=== PATIENT | male | born 1970 | race Two or more races ===

== ENCOUNTER 2016-05-28 11:13 | Emergency (ER) | payer BC, OTHER ==
[2016-05-28 12:02] VITALS: BP 147/98; PULSE 81; TEMP 98; BMI 32.5
[2016-05-28] MEDS ORDERED: OXYCODONE/APAP 5/325MG COMBO TABLET PO ONE (13:38)
[2016-05-28] MEDS ORDERED: OXYCODONE/APAP 5/325MG COMBO TABLET ONE (13:38)
--- NOTE | 2016-05-28 13:40 | PDOC ---
History of Present Illness - General Chief Complaint: Pain, Acute Stated Complaint: LT HAND INJURY Time Seen by Provider: 05/28/16 13:24 History Source: Patient Exam Limitations: No Limitations - History of Present Illness Initial Comments: 05/28/16 13:56 45 yr male with injury to left index finger. Pt states was at work and a pressure gauge crushed his right index finger. skin intact. no allergies or medical history . 05/28/16 13:57 Occurred: reports: just prior to arrival Upper Extremity Pain Location: left: 2nd finger Past History - Past Medical History Allergies/Adverse Reactions: Allergies Allergy/AdvReac Type Severity Reaction Status Date / Time No Known Allergies Allergy Verified 05/28/16 11:58 Home Medications: Ambulatory Orders Rabeprazole Sodium [Aciphex] 20 mg PO DAILY #30 tab 06/24/15 Sucralfate [Carafate] 1 gm PO Q6H PRN #60 ml 06/24/15 Ibuprofen 800 mg PO TID PRN #20 tablet 05/28/16 Oxycodone HCl/Acetaminophen [Percocet 5-325 mg Tablet] 1 tab PO Q6H PRN #12 tablet MDD 4 tabs 05/28/16 GI Disorders: Yes (PEPTIC ULCER) Psychiatric Problems: Yes (ANXIETY.) - Psycho/Social/Smoking Cessation Hx Anxiety: Yes Suicidal Ideation: No Smoking History: Never smoked Have you smoked in the past 12 months: No Number of Cigarettes Smoked Daily: 1 If you are a former smoker, when did you quit?: 1 YR AGO Information on smoking cessation initiated: No 'Breaking Loose' booklet given: 06/24/15 Hx Alcohol Use: No Drug/Substance Use Hx: No Substance Use Type: None *Physical Exam - Vital Signs Last Vital Signs Temp Pulse Resp BP Pulse Ox 98.0 F 81 16 147/98 99 05/28/16 11:58 05/28/16 11:58 05/28/16 11:58 05/28/16 11:58 05/28/16 11:58 - Physical Exam General Appearance: Yes: Nourished, Appropriately Dressed, Moderate Distress ( pain 10/10 ) HEENT: positive: EOMI, KARIME Extremity: positive: Normal Capillary Refill, Normal Inspection, Tender (distal tip left indec finger, no deformity, skin intact, FROM of the digit sensation intact ) Procedures - Splinting Splint Location: Left: Finger (index to middle finger splinted ) ED Treatment Course - RADIOLOGY Radiology Studies Ordered: Category Date Time Status FINGER(S) LEFT [RAD] Stat Radiology 05/28/16 13:38 Ordered Medical Decision Making - Medical Decision Making 05/28/16 13:59 left index finger trauma at work no obvious deformity, nv intact sensation intact, skin intact will xray to r/o fracture percocet for pain splint/laci tape and follow up with 05/28/16 14:56 *DC/Admit/Observation/Transfer Diagnosis at time of Disposition: Finger fracture, left - Discharge Dispostion Disposition: HOME Condition at time of disposition: Good - Prescriptions Prescriptions: Ibuprofen 800 mg PO TID PRN #20 tablet PRN Reason: Pain Oxycodone HCl/Acetaminophen [Percocet 5-325 mg Tablet] 1 tab PO Q6H PRN #12 tablet MDD 4 tabs PRN Reason: Severe Pain - Referrals Referrals: Ray Tomlinson MD [Staff Physician] - - Patient Instructions Additional Instructions: keep fingers laci taped take motrin 800mg for mild to moderate pain every 6-8hrs take percocet for severe pain follow with the orthopedist call today to make appointment, telll them you were in the ER and your have a broken finger no work until cleared by the orthopedist - Post Discharge Activity Work/School Note: Back to Work
== END 2016-05-28 14:39 | disposition home or self-care (01) ==
LOC: JERFT 11:13
PROC: 2W3KX1Z Immobilization of Left Finger using Splint (ICD-10-PCS; principal; 2016-05-28)
DX: S62.601A Fracture of unspecified phalanx of left index finger, initial encounter for closed fracture (principal); W23.0XXA Caught, crushed, jammed, or pinched between moving objects, initial encounter; Y93.9 Activity, unspecified; Y92.9 Unspecified place or not applicable; Y99.0 Civilian activity done for income or pay
CPT/HCPCS: 73140-TC-LT; 99281-25

== ENCOUNTER 2018-02-02 15:11 | Emergency (ER) | payer BC ==
--- NOTE | 2018-02-02 15:37 | PDOC ---
Rapid Medical Evaluation Chief Complaint: Pain, Acute Time Seen by Provider: 02/02/18 15:29 Medical Evaluation: Allergies Allergy/AdvReac Type Severity Reaction Status Date / Time No Known Allergies Allergy Verified 02/22/17 13:08 02/02/18 15:30 I have performed a brief in-person evaluation of this patient. The patient presents with a chief complaint of: bilateral foot pain x 1 month, worsening/ numbness/ and "nerve pain", states is worse with ingestion of blood sugers./ Strong family history of IDDM Pertinent physical exam findings: pale/ flat feet, with diminished sensation - no lesions or infection. NOTE: patient with extreme anxiety to having fingerstick- diaphoritic and beginning to vagal. As FS was WNL will hold further labs. I have ordered the following: FS= 101. The patient will proceed to the ED for further evaluation. 02/02/18 15:38 02/02/18 15:40 02/02/18 15:41
[2018-02-02 15:48] VITALS: BP 133/72; PULSE 77; TEMP 98.5; BMI 31.1
--- NOTE | 2018-02-02 16:26 | PDOC ---
History of Present Illness - General History Source: Patient Exam Limitations: No Limitations - History of Present Illness Initial Comments: 02/02/18 16:51 The patient is a 47 year old male, with a significant past medical history of Severe bilateral planus plantar, peptic ulcer and anxiety, who presents to the emergency department with, worsening bilateral lower extremity pain. The pain is ongoing for multiple years worsening in the past month. The patient describes his pain as sharp, fire-like pain with occasional numbness worse in the left lower extremity. His pain is worsened when massaging his legs downwards and alleviated when massaging upwards. He used Tylenol, Advil, and Aleve, without relief. He denies any recent trauma or long distance travel. He denies any recent fevers , chills, headache or dizziness. He denies any recent nausea, vomit, diarrhea or constipation. He denies any recent chest pain or shortness of breath. He denies any recent dysuria, frequency, urgency or hematuria. Allergies: NKA Past surgical history: None reported. Social History: Nonsmoker. Denies EtOH use and recreational drug use. <Lee Ann Guerra - Last Filed: 02/02/18 16:54> <Shi Guerrero - Last Filed: 02/03/18 11:55> - General Chief Complaint: Pain, Acute Stated Complaint: POSSIBLE BP PROBLEM Time Seen by Provider: 02/02/18 15:29 Past History <Lee Ann Guerra - Last Filed: 02/02/18 16:54> - Past Medical History COPD: No GI Disorders: Yes (PEPTIC ULCER) Psychiatric Problems: Yes (ANXIETY.) - Immunization History Immunization Up to Date: Yes - Suicide/Smoking/Psychosocial Hx Smoking History: Former smoker Have you smoked in the past 12 months: No Number of Cigarettes Smoked Daily: 1 If you are a former smoker, when did you quit?: 1 YR AGO Information on smoking cessation initiated: No 'Breaking Loose' booklet given: 06/24/15 Hx Alcohol Use: No Drug/Substance Use Hx: No Substance Use Type: None <Shi Guerrero - Last Filed: 02/03/18 11:55> - Past Medical History Allergies/Adverse Reactions: Allergies Allergy/AdvReac Type Severity Reaction Status Date / Time No Known Allergies Allergy Verified 02/02/18 15:30 Home Medications: Ambulatory Orders traMADol HCL [Ultram -] 50 mg PO Q8H #15 tablet MDD 3 02/02/18 Review of Systems - Review of Systems Able to Perform ROS?: Yes Comments:: 02/02/18 16:51 CONSTITUTIONAL: Absent: fever, no chills, no fatigue EYES: Absent: visual changes ENT: Absent: ear pain, no sore throat CARDIOVASCULAR: Absent: chest pain, no palpitations RESPIRATORY: Absent: cough, no SOB GI: Absent: abdominal pain, no nausea, no vomiting, no constipation, no diarrhea GENITOURINARY: Absent: dysuria, no frequency, no hematuria MUSKULOSKELETAL: Present: Bilateral lower extremity pain. Absent: back pain SKIN: Absent: rash NEURO: Absent: headache All Other Systems: Reviewed and Negative <Lee Ann Guerra - Last Filed: 02/02/18 16:54> *Physical Exam - Vital Signs Last Vital Signs Temp Pulse Resp BP Pulse Ox 98.5 F 77 18 133/72 96 02/02/18 15:37 02/02/18 15:37 02/02/18 15:37 02/02/18 15:37 02/02/18 15:37 - Physical Exam Comments: 02/02/18 16:54 GENERAL: Well-appearing, well-nourished. No apparent distress. HEENT: Normocephalic, atraumatic. PERRL, EOM intact. CARDIOVASCULAR: Normal S1, S2. Regular rate and rhythm. PULMONARY: Clear to auscultation bilaterally. ABDOMEN: Soft, non-distended, non-tender. +EXTREMITIES: Diminished sensation to the bilateral feet left worse than right. DP pulses are 2+ and equal. Strength 5/5. No swelling appreciated. No calf tenderness. Normal ROM in all four extremities. No gross deformities. SKIN: Warm, dry. No rash NEUROLOGICAL: No focal neurological deficits. <Lee Ann Guerra - Last Filed: 02/02/18 16:54> - Vital Signs Last Vital Signs Temp Pulse Resp BP Pulse Ox 98.5 F 77 18 133/72 96 02/02/18 15:37 02/02/18 15:37 02/02/18 15:37 02/02/18 15:37 02/02/18 15:37 <Shi Guerrero - Last Filed: 02/03/18 11:55> ED Treatment Course - ADDITIONAL ORDERS Additional order review: Laboratory Results 02/02/18 15:36 POC Glucometer [id number] 02/02/18 15:36 POC Glucometer [id number] - Medications Given in the ED: ED Medications Discontinued Medications Generic Name Dose Route Start Last Admin Trade Name Gatito PRN Reason Stop Dose Admin Tramadol HCl 50 mg 02/02/18 16:31 02/02/18 16:39 Ultram - PO 02/02/18 16:32 50 mg ONCE ONE Administration <[email or web address] - Last Filed: 02/02/18 16:54> - ADDITIONAL ORDERS Additional order review: Laboratory Results 02/02/18 15:36 POC Glucometer [id number] 02/02/18 15:36 POC Glucometer [id number] <Shi Guerrero - Last Filed: 02/03/18 11:55> Medical Decision Making - Medical Decision Making 02/02/18 18:20 A portion of this note was documented by scribe services under my direction. I have reviewed the details of the note, within reason, and agree with the documentation with the following case summary and management plan written by me. The patient is a 47 year old male, with a significant past medical history of Severe bilateral planus plantar, peptic ulcer and anxiety, who presents to the emergency department with, worsening bilateral lower extremity pain/neuropathy -Fhx of IDDM -Pt states pain has gotten worse over the past year. -FS in triage 101. -No gross neurological findings on exam. Pt does report increased pain when touching his feet. -Urine is negative for glucose, protein -Pt refuses lab work d/t needle phobia -Will refer to primary care for further work up: DDX includes but is not limited to, peripheral neuropathy, anemia, cardiac pathology, vascular pathology. -Appointment made at the [facility] for this week -NE home with pain control I discussed the physical exam findings, ancillary test results and final diagnoses with the patient. I answered all of the patient's questions. The patient was satisfied with the care received and felt comfortable with the discharge plan and treatment plan. The Patient agrees to follow up with the primary care physician/specialist within 24-72 hours. Return precautions were given. <Shi Guerrero - Last Filed: 02/03/18 11:55> *DC/Admit/Observation/Transfer - Attestations Scribe Attestion: 02/02/18 16:51 Documentation prepared by Lee Ann Guerra, acting as medical assisting instructor for MARIA DEL CARMEN Ernst. <Lee Ann Guerra - Last Filed: 02/02/18 16:54> - Discharge Dispostion Decision to Admit order: No <Shi Guerrero - Last Filed: 02/03/18 11:55> Diagnosis at time of Disposition: Flat feet, bilateral, Foot pain, bilateral - Discharge Dispostion Disposition: HOME Condition at time of disposition: Stable - Prescriptions Prescriptions: traMADol HCL [Ultram -] 50 mg PO Q8H #15 tablet MDD 3 - Referrals Referrals: Daniel Salazar MD [Primary Care Provider] - - Patient Instructions Printed Discharge Instructions: DI for Peripheral Neuropathy Additional Instructions: You have burning sensations in your feet. Please take the tramadol every 8 hours as needed for pain. Do not drive after taking this medication as it may make you sleepy Your urine today was normal and your blood sugar was 101. Please keep your primary care appointment that was made for you Return to the ED for any new or worsening symptoms - Post Discharge Activity Forms/Work/School Notes: Back to Work
[2018-02-02] MEDS ORDERED: traMADol HCL 50 MG TABLET PO ONE (16:31)
[2018-02-02] MEDS ORDERED: traMADol HCL 50 MG TABLET ONE (16:35)
[2018-02-02 17:24] LABS: URINE APPEARANCE CLEAR; URINE BILIRUBIN NEGATIVE (<2.0 mg/dL); URINE COLOR YELLOW; URINE GLUCOSE (UA) NEGATIVE (NEGATIVE); URINE KETONE NEGATIVE (NEGATIVE); URINE LEUK ESTERASE NEGATIVE (NEGATIVE); URINE NITRITE NEGATIVE (NEGATIVE); URINE PROTEIN NEGATIVE (NEGATIVE); URINE UROBILINOGEN NEGATIVE mg/dL (0.2-1.0)
== END 2018-02-02 18:43 | disposition home or self-care (01) ==
LOC: JERFT 15:11 → JER 15:11 → SUPCPDRO 15:11 → JERFT 18:43
DX: M21.42 Flat foot [pes planus] (acquired), left foot (principal); M21.41 Flat foot [pes planus] (acquired), right foot; F41.9 Anxiety disorder, unspecified; Z87.19 Personal history of other diseases of the digestive system
CPT/HCPCS: 81003; 82962; 99281-25

== ENCOUNTER 2019-12-21 15:35 | Inpatient (IN) | payer BC ==
--- NOTE | 2019-12-21 16:48 | PDOC ---
History of Present Illness - General Stated Complaint: RESPIRATORY Time Seen by Provider: 12/21/19 16:13 - History of Present Illness Initial Comments: 12/21/19 16:24 49 year old man with a history of pre-DM and recent covid exposure who presents with 1 month of dizziness worse with sitting up and walking and worsening and 1 month of worsening shortness of breath. He reports that his ex- with whom he has had contact was positive for covid 2 times. He denies fever, swelling in the legs, prior PE or DVT, denies productive cough. Has no other complaitns. ROS GENERAL/CONSTITUTIONAL: No fever or chills. No weakness. HEAD, EYES, EARS, NOSE AND THROAT: No change in vision. No ear pain or discharge. No sore throat. CARDIOVASCULAR: No chest pain + shortness of breath RESPIRATORY: No cough, wheezing, or hemoptysis. GASTROINTESTINAL: No nausea, vomiting, diarrhea or constipation. GENITOURINARY: No dysuria, frequency, or change in urination. MUSCULOSKELETAL: No joint or muscle swelling or pain. No neck or back pain. SKIN: No rash NEUROLOGIC: No headache, vertigo, loss of consciousness, or change in strength/sensation. ENDOCRINE: No increased thirst. No abnormal weight change HEMATOLOGIC/LYMPHATIC: No anemia, easy bleeding, or history of blood clots. ALLERGIC/IMMUNOLOGIC: No hives or skin allergy. VITALS: sat 95% on 15L NRB, BP111/85, HR 80 PE GENERAL: Awake, alert, and fully oriented, in no acute distress HEAD: No signs of trauma, normocephalic, atraumatic EYES: EOMI, sclera anicteric, conjunctiva clear ENT: oropharynx clear without exudates. Moist mucosa NECK: Normal ROM, supple LUNGS: No distress, speaks full sentences, clear to auscultation bilaterally, accessory abdominal muscle use HEART: Regular rate and rhythm, normal S1 and S2, no murmurs, rubs or gallops, peripheral pulses normal and equal bilaterally. ABDOMEN: Soft, nontender, No guarding, no rebound. No masses EXTREMITIES : Normal inspection, Normal range of motion, no edema. No clubbing or cyanosis. NEUROLOGICAL: Cranial nerves II through XII grossly intact. Normal speech, no focal sensorimotor deficits SKIN: Warm, Dry, normal turgor, no rashes or lesions noted Assessment and Plan 49 year old man with a history of pre-DM and recent covid exposure who presents with 1 month of dizziness worse with sitting up and worsening shortness breath now in respiratory distress. Consider Pna vs covid vs ptx vs pe vs pulm edema - cbc, cmp, bnp, trop, ekg, cxr, covid Patient in current respiratory distress will place on hi-flow NC Labs with respiratory alkalosis with some metabolic compensation ferritin wnl pending esr, crp, dimer Patient admitting to hospitalist Past History - Medical History Allergies/Adverse Reactions: Allergies Allergy/AdvReac Type Severity Reaction Status Date / Time lactose AdvReac Mild Verified 12/22/19 16:08 Home Medications: Ambulatory Orders Amoxicillin/Potassium Clav [Augmentin 875-125 Tablet] 875 each PO BID #15 tablet 12/28/19 Apixaban [Eliquis] 5 mg PO BID 30 Days #60 tablet 12/28/19 Prednisone 10 mg PO DAILY #15 tablet 12/28/19 Quetiapine Fumarate [Seroquel -] 25 mg PO BID #60 tablet 12/28/19 Trazodone HCl 150 mg PO HS #30 tablet 12/28/19 COPD: No GI Disorders: Yes (PEPTIC ULCER) Psychiatric Problems: Yes (ANXIETY.) - Immunization History Immunization Up to Date: Yes - Psycho-Social/Smoking History Smoking History: Former smoker Have you smoked in the past 12 months: No Number of Cigarettes Smoked Daily: 1 If you are a former smoker, when did you quit?: 1 YR AGO 'Breaking Loose' booklet given: 06/24/15 ED Treatment Course - LABORATORY CBC & Chemistry Diagram: 12/28/19 05:21 12/28/19 05:21 - RADIOLOGY Radiology Studies Ordered: Category Date Time Status CXRPORT [CHEST X-RAY PORTABLE*] [RAD] Stat Radiology 12/21/19 16:12 Ordered Discharge - Discharge Information Problems reviewed: Yes Clinical Impression/Diagnosis: Hypoxia, COVID-19 determined by clinical diagnostic criteria Condition: Stable Disposition: HOME - Follow up/Referral - Patient Discharge Instructions - Post Discharge Activity
[2019-12-21 17:09] VITALS: BMI 33.5
--- NOTE | 2019-12-21 17:19 | PDOC ---
Attending Attestation - Resident Resident Name: Xuan Lance - ED Attending Attestation I have performed the following: I have examined & evaluated the patient, The case was reviewed & discussed with the resident, I agree w/resident's findings & plan, Exceptions are as noted - HPI HPI: 12/21/19 17:10 49-year-old gentleman history of borderline dm, Sent in from outpatient MD for evaluation of hypoxia and hypotension. Patient states that he has been feeling subjective fevers, cough, shortness of breath, cough, generalized weakness, nausea, vomiting, diarrhea for the past month, he was tested for COVID at [facility] in early november But he never followed up with the results. Notes that he has been feeling dyspneic on exertion. He does have sick contacts through his ex- girlfriend who was hospitalized for COVID. He has had interactions with her, Although he has been quarantining since he has been symptmoatic. Pt does endorse some chest pain when he is in his coughing fits, but non otherwise. denies any smoking, drugs, recreational drug use. exam: GENERAL: The patient is awake, alert, and fully oriented, Mildly tachypneic. HEAD: Normocephalic, atraumatic. EYES: extraocular movements intact, sclera anicteric, conjunctiva clear. ENT: Normal voice, Moist mucous membranes. NECK: Normal range of motion, supple LUNGS: Breath sounds equal, clear to auscultation bilaterally. No wheezes, no rhonchi, no rales. HEART: Regular rate and rhythm, normal S1 and S2 without murmur, rub or gallop. ABDOMEN: Soft, nontender, No guarding, no rebound. No CVA tenderness EXTREMITIES: Normal range of motion, no edema. No calf tenderness, negative Homans sign NEUROLOGICAL: No facial assymetry, Normal speech, PSYCH: Normal mood, normal affect. SKIN: Warm, Dry, normal turgor, Differential for the patient's symptoms includes possible COVID pneumonia, pneumonia, consider possible pulmonary embolism chest x-ray, sepsis order set was obtained, will test for COVID as pt tachypneic and hypoxic, pt started on high flow 02 to assist with work of breathing pt placed in reverse iso will coninue close monitoring - Physicial Exam PE: 12/22/19 12:22 see above - Critical Care Time Total Critical Care Time: 45 Critical Care Statement: The care of this patient involved high complexity decision making to prevent further life threatening deterioration of the patient's condition and/or to evaluate & treat vital organ system(s) failure or risk of failure. - Medical Decision Making Pt doing wlell on high flow tachypnea improved signed out to evening team awaiting CTA results to eval for possible COVID changes vs PE anticipate admission to ICU Heart Score/ECG Review - ECG Impressions Comment:: 12/21/19 17:51 Twelve-lead EKG was performed and reviewed by me. There is normal sinus rhythm with a normal rate. Rate of 83 The axis is normal. The intervals are normal. There is normal R wave progression There are no ST or T wave abnormalities. Impression: Normal twelve-lead EKG Discharge - Discharge Information Problems reviewed: Yes Clinical Impression/Diagnosis: Hypoxia, COVID-19 determined by clinical diagnostic criteria Condition: Guarded - Admission Yes - Follow up/Referral - Patient Discharge Instructions - Post Discharge Activity
[2019-12-21 17:39] LABS: BASO % 0.2 % (0-2.0); EOS % 0.4 % (0-4.5); HEMATOCRIT 33.1 % (35.4-49); HEMOGLOBIN 10.9 GM/dL (11.7-16.9); LYMPH % 16.3 % (8-40); MCH 32.7 pg (25.7-33.7); MEAN CELL VOLUME 98.9 fl (80-96); MEAN PLT VOLUME 9.1 fl (7.5-11.1); MONO % 12.7 % (3.8-10.2); NEUT % 70.4 % (42.8-82.8); PLATELET COUNT 268 K/MM3 (134-434); RBC 3.35 M/mm3 (4.00-5.60); VENOUS BASE EXCESS 0.9 mmol/L (-2-2); VENOUS O2 SATURATION 65.9 % (70-80); VENOUS PCO2 28.9 mmHg (38-52); VENOUS PH 7.512 (7.310-7.410); WHITE BLOOD COUNT 11.3 K/mm3 (4.0-10.0)
[2019-12-21 17:49] LABS: INR 1.2 (0.83-1.09); PROTHROMBIN TIME (PATIENT) 14.2 SEC (9.7-13.0)
[2019-12-21 17:52] LABS: ACTIVATED PTT 29.8 SECONDS (25.2-36.5)
[2019-12-21 18:09] LABS: ALBUMIN 3.7 g/dl (3.4-5.0); ALK PHOS 63 U/L (45-117); ANION GAP 9 MMOL/L (8-16); BILIRUBIN,TOTAL 1.9 mg/dL (0.2-1); CALCIUM 9.1 mg/dL (8.5-10.1); CHLORIDE 103 mmol/L (98-107); CO2 25 mmol/L (21-32); CREATININE 1.4 mg/dL (0.55-1.3); GLUCOSE,RANDOM 90 mg/dL (74-106); SGOT/AST 21 U/L (15-37); SGPT/ALT 18 U/L (13-61); SODIUM 137 mmol/L (136-145); TOT PROT 7.3 g/dl (6.4-8.2)
[2019-12-21] MEDS ORDERED: ACETAMINOPHEN 1000 MG/100 ML VIAL (NON FORMULARY) IVPB ONE (19:01)
[2019-12-21 19:19] LABS: ERYTHROCYTE SEDIMENTATION RATE 33 mm/hr (0-20)
[2019-12-21] MEDS ORDERED: DEXAMETHASONE SOD PHOSPHATE 20 MG/5 ML VIAL IVPB ONE (19:33)
[2019-12-21] MEDS ORDERED: ACETAMINOPHEN INJECTION 100 ML IVPB ONE (19:41)
[2019-12-21] MEDS ORDERED: CEFTRIAXONE 1,000 MG in DEXTROSE 5%-WATER - 50 ML IVPB ONE (19:55)
[2019-12-21] MEDS ORDERED: AZITHROMYCIN IVPB 500 MG in DEXTROSE 5%-WATER - 250 ML IVPB ONE (19:55)
[2019-12-21] MEDS ORDERED: DEXAMETHASONE SOD PHOSPHATE 10 MG/1 ML VIAL ONE (20:27)
--- NOTE | 2019-12-21 20:27 | PDOC ---
*Physical Exam - Vital Signs Last Vital Signs Temp Pulse Resp BP Pulse Ox 100 F H 91 H 20 106/67 97 12/21/19 16:30 12/21/19 20:04 12/21/19 20:04 12/21/19 20:04 12/21/19 20:04 ED Treatment Course - LABORATORY CBC & Chemistry Diagram: 12/22/19 05:35 12/22/19 05:35 - ADDITIONAL ORDERS Additional order review: Laboratory Results 12/21/19 12/21/19 12/21/19 14:45 14:45 14:45 PT with INR INR PTT (Actin FS) D-Dimer 520 H VBG pH 7.512 H POC VBG pCO2 28.9 L POC VBG pO2 30.4 VBG HCO3 22.6 L VBG O2 Sat (Jaden) 65.9 L VBG Base Excess 0.9 Sodium Potassium Chloride Carbon Dioxide Anion Gap BUN Creatinine Est GFR (CKD-EPI)AfAm Est GFR (CKD-EPI)NonAf Random Glucose Calcium Ferritin Total Bilirubin AST ALT Alkaline Phosphatase Troponin I B-Natriuretic Peptide 14.7 Total Protein Albumin 12/21/19 12/21/19 14:45 14:45 PT with INR 14.20 H INR 1.20 H PTT (Actin FS) 29.8 D-Dimer VBG pH POC VBG pCO2 POC VBG pO2 VBG HCO3 VBG O2 Sat (Jaden) VBG Base Excess Sodium 137 Potassium 4.0 Chloride 103 Carbon Dioxide 25 Anion Gap 9 BUN 11.0 Creatinine 1.4 H Est GFR (CKD-EPI)AfAm 66.95 Est GFR (CKD-EPI)NonAf 57.76 Random Glucose 90 Calcium 9.1 Ferritin 292.5 Total Bilirubin 1.9 H AST 21 ALT 18 Alkaline Phosphatase 63 Troponin I < 0.02 B-Natriuretic Peptide Total Protein 7.3 Albumin 3.7 12/21/19 14:45 RBC 3.35 L MCV 98.9 H MCHC 33.0 RDW 16.0 H MPV 9.1 Neutrophils % 70.4 D Lymphocytes % 16.3 D Monocytes % 12.7 H Eosinophils % 0.4 Basophils % 0.2 - Medications Given in the ED: ED Medications Discontinued Medications Generic Name Dose Route Start Last Admin Trade Name Freq PRN Reason Stop Dose Admin Acetaminophen 1,000 mg 12/21/19 19:01 12/21/19 19:54 Ofirmev Injection - IVPB 12/21/19 19:02 1,000 mg ONCE ONE Administration Medical Decision Making - Medical Decision Making 12/21/19 20:21 Patient was signed out to me. The patient, to my understanding, is a 49 yo M At 7:32, a microblog was sent to the ICU team for admission. Given the patient is having respiratory alkalosis in the setting of hypoxia, tachypnea, and tachycardia with a within normal chest xray, likely the patient had COVID-19 respiratory failure. Because of persistent hypoxia and work of breathing increases while on NRB, the patient was placed on hi-flow nasal cannula. The patient was given 6 mg of dexamethasone, 1 gram of ceftriaxone, 500 mg of azithromycin, and blood cultures drawn. D-dimer was 520. I spoke to ICU team at 7:35 pm. Per ICU, they noted that they will come see the patient. They requested that the patient needs to have a CTA before evaluation. I relayed to the team that medical guidelines are clear that if there is clifton pected PE or DVT in patients with suspected or confirmed COVID-19 that empirical treatment must be initiated and not to delay for CTA of the chest. ICU team evaluated the patient and stated that they are stable enough for telemetry admission and do not require the unit The patient was endorsed to the hospitalist team and accepted for admission Discharge - Discharge Information Problems reviewed: Yes Clinical Impression/Diagnosis: Hypoxia, COVID-19 determined by clinical diagnostic criteria Condition: Guarded - Follow up/Referral - Patient Discharge Instructions - Post Discharge Activity
[2019-12-21] MEDS ORDERED: AZITHROMYCIN IVPB 500 MG/250 ML BAG IVPB ONE (20:28)
[2019-12-21] MEDS ORDERED: CEFTRIAXONE 1 GM/50 ML BAG ONE (20:28)
[2019-12-21] MEDS ORDERED: ENOXAPARIN NA (PORCINE) 60 MG/0.6 ML DISP.SYRIN SQ SCH (20:30)
--- NOTE | 2019-12-21 20:40 | CONSULT ---
Consultation: REQUESTING PROVIDER: ED CONSULT REQUEST: We have been asked to medically evaluate this patient for hypoxia HISTORY OF PRESENT ILLNESS: 49 yo M Pre-Diabetes , bipolar, GERD, peripheral neuropathy chronic diarrhea presents to ED from Dr. Johnson's office for hypoxia and tachycardia. pt states for about 1 week has been feeling increased shortness of breath, especially on exertion. pt states that the shortness of breath is significantly worse when he coughs. sometimes when he coughs it prompts him to vomit. denies sputum production. pt states that he has also been having increased nausea/vomiting/ diarrhea . he states that he has been around his ex-girlfriend who has been sick. he endorses chest "spasms" that are worse when he leans forward. he states that it comes and goes. he also endorses shoulder and neck pain which he attributes to the hospital bed. he states that chronically he sees spots when he stands up and gets dizzy when he stands. this is not new states he quit smoking 5 years ago drinks 2 bottles of wine on weekends denies illicit drug use REVIEW OF SYSTEMS: CONSTITUTIONAL: Present: fevers Absent: chills, diaphoresis, generalized weakness, malaise, loss of appetite, weight change HEENT: Absent: rhinorrhea, nasal congestion, throat pain, throat swelling, difficulty swallowing, mouth swelling, ear pain, eye pain, visual changes CARDIOVASCULAR: Absent: chest pain, syncope, palpitations, irregular heart rate, lightheadedness, peripheral edema RESPIRATORY: Absent: cough, shortness of breath, dyspnea with exertion, orthopnea, wheezing, stridor, hemoptysis GASTROINTESTINAL: Present: nausea, vomiting, diarrhea Absent: abdominal pain, abdominal distension, constipation, melena, hematochezia GENITOURINARY: Absent: dysuria, frequency, urgency, hesitancy, hematuria, flank pain, genital pain MUSCULOSKELETAL: Present: joint pain, back pain Absent: myalgia, arthralgia, joint swelling SKIN: Absent: rash, itching, pallor HEMATOLOGIC/IMMUNOLOGIC: Absent: easy bleeding, easy bruising, lymphadenopathy, frequent infections ENDOCRINE: Absent: unexplained weight gain, unexplained weight loss, heat intolerance, cold intolerance NEUROLOGIC: Absent: headache, focal weakness or paresthesias, dizziness, unsteady gait, seizure, mental status changes, bladder or bowel incontinence PSYCHIATRIC: Absent: anxiety, depression, suicidal or homicidal ideation, hallucinations. PHYSICAL EXAMINATION Vital Signs - 24 hr 12/21/19 12/21/19 12/21/19 16:30 17:22 20:04 Temperature 100 F H Pulse Rate 79 74 Pulse Rate [ 91 H Left] Respiratory 28 H 20 Rate Blood Pressure 108/72 Blood Pressure 106/67 [Left] O2 Sat by Pulse 100 96 97 Oximetry (%) GENERAL: Awake, alert, and fully oriented, in no acute distress. on high flow HEAD: Normal with no signs of trauma. EYES: Pupils equal, round and reactive to light, extraocular movements intact, sclera anicteric EARS, NOSE, THROAT: Ears normal, nares patent, oropharynx clear without exudates. Moist mucous membranes. NECK: Normal range of motion LUNGS: Breath sounds equal,no crackles or wheezes, decreased at bases No accessory muscle use. HEART: Regular rate and rhythm, normal S1 and S2 ABDOMEN: Soft, nontender, not distended, normoactive bowel sounds, no guarding, no rebound, no masses. MUSCULOSKELETAL: Normal range of motion at all joints. No bony deformities or tenderness. UPPER EXTREMITIES: 2+ pulses, warm, well-perfused. No cyanosis. No peripheral edema. LOWER EXTREMITIES: 2+ pulses, warm, well-perfused. No calf tenderness. No peripheral edema. NEUROLOGICAL: Cranial nerves II-XII intact. Normal speech. PSYCHIATRIC: Cooperative. Good eye contact. Appropriate mood and affect. SKIN: Warm, dry, normal turgor, no rashes or lesions noted. Laboratory Last Values WBC 11.3 K/mm3 (4.0-10.0) H 12/21/19 14:45 RBC 3.35 M/mm3 (4.00-5.60) L 12/21/19 14:45 Hgb 10.9 GM/dL (11.7-16.9) L 12/21/19 14:45 Hct 33.1 % (35.4-49) L 12/21/19 14:45 MCV 98.9 fl (80-96) H 12/21/19 14:45 MCH 32.7 pg (25.7-33.7) 12/21/19 14:45 MCHC 33.0 g/dl (32.0-35.9) 12/21/19 14:45 RDW 16.0 % (11.9-15.9) H 12/21/19 14:45 Plt Count 268 K/MM3 (134-434) 12/21/19 14:45 MPV 9.1 fl (7.5-11.1) 12/21/19 14:45 Absolute Neuts (auto) 8.0 K/mm3 (1.5-8.0) 12/21/19 14:45 Neutrophils % 70.4 % (42.8-82.8) D 12/21/19 14:45 Lymphocytes % 16.3 % (8-40) D 12/21/19 14:45 Monocytes % 12.7 % (3.8-10.2) H 12/21/19 14:45 Eosinophils % 0.4 % (0-4.5) 12/21/19 14:45 Basophils % 0.2 % (0-2.0) 12/21/19 14:45 Nucleated RBC % 0 % (0-0) 12/21/19 14:45 ESR 33 mm/hr (0-20) H 12/21/19 14:45 PT with INR 14.20 SEC (9.7-13.0) H 12/21/19 14:45 INR 1.20 (0.83-1.09) H 12/21/19 14:45 PTT (Actin FS) 29.8 SECONDS (25.2-36.5) 12/21/19 14:45 D-Dimer 520 ng/ml (0-500) H 12/21/19 14:45 VBG pH 7.512 (7.310-7.410) H 12/21/19 14:45 POC VBG pCO2 28.9 mmHg (38-52) L 12/21/19 14:45 POC VBG pO2 30.4 mmHg (28-48) 12/21/19 14:45 VBG HCO3 22.6 mmol/L (23-29) L 12/21/19 14:45 VBG O2 Sat (Jaden) 65.9 % (70-80) L 12/21/19 14:45 VBG Base Excess 0.9 mmol/L (-2-2) 12/21/19 14:45 Sodium 137 mmol/L (136-145) 12/21/19 14:45 Potassium 4.0 mmol/L (3.5-5.1) 12/21/19 14:45 Chloride 103 mmol/L (98-107) 12/21/19 14:45 Carbon Dioxide 25 mmol/L (21-32) 12/21/19 14:45 Anion Gap 9 MMOL/L (8-16) 12/21/19 14:45 BUN 11.0 mg/dL (7-18) 12/21/19 14:45 Creatinine 1.4 mg/dL (0.55-1.3) H 12/21/19 14:45 Est GFR (CKD-EPI)AfAm 66.95 12/21/19 14:45 Est GFR (CKD-EPI)NonAf 57.76 12/21/19 14:45 Random Glucose 90 mg/dL (74-106) 12/21/19 14:45 Calcium 9.1 mg/dL (8.5-10.1) 12/21/19 14:45 Ferritin 292.5 ng/ml (8-388) 12/21/19 14:45 Total Bilirubin 1.9 mg/dL (0.2-1) H 12/21/19 14:45 AST 21 U/L (15-37) 12/21/19 14:45 ALT 18 U/L (13-61) 12/21/19 14:45 Alkaline Phosphatase 63 U/L (45-117) 12/21/19 14:45 Troponin I < 0.02 ng/ml (0.00-0.05) 12/21/19 14:45 B-Natriuretic Peptide 14.7 pg/ml (5-125) 12/21/19 14:45 Total Protein 7.3 g/dl (6.4-8.2) 12/21/19 14:45 Albumin 3.7 g/dl (3.4-5.0) 12/21/19 14:45 Active Medications Generic Name Dose Route Start Last Admin Trade Name Freq PRN Reason Stop Dose Admin Enoxaparin Sodium 60 mg 12/21/19 20:30 Lovenox - SQ ONCE PAULETTE Azithromycin 500 mg/ Dextrose 250 mls @ 250 mls/hr 12/21/19 19:55 IVPB 12/21/19 20:54 ONCE ONE ASSESSMENT/PLAN: 49 yo M Pre-Diabetes , bipolar, GERD, peripheral neuropathy chronic diarrhea presents to ED from Dr. Johnson's office for hypoxia and tachycardia. Pt is admitted for acute hypoxic respiratory failure , r/o covid-19. given that pt is saturating well (97%)on hiflow , not using accessory muscles will not accept to ICU at this time. Acute hypoxic respiratory failure likely 2/2 covid 19 vs PE cont HiFlow and cont to monitor sats. maintain >92% titrate as tolerated will recommend further imaging , although covid suspicious cannot r/o PE follow inflammatory markers would recommend checking legionella, BCx, UA would recommend checking Cdif UA, U lytes , UOsm , SOsm Dispo: recommending telemetry. please feel free to re-consult if needed. ATTENDING PHYSICIAN STATEMENT I saw and evaluated the patient. I reviewed the resident's note and discussed the case with the resident. I agree with the resident's findings and plan as documented. SUBJECTIVE: OBJECTIVE: ASSESSMENT AND PLAN:
[2019-12-21] MEDS ORDERED: ENOXAPARIN NA (PORCINE) 40 MG/0.4 ML DISP.SYRIN SQ ONE (21:43)
[2019-12-21] MEDS ORDERED: HYDROXYCHLOROQUINE SO4 200 MG TABLET (FP) PO ONE ×2 (22:46→23:19)
[2019-12-21] MEDS: SODIUM CHLORIDE 1,000 ML IV SCH (23:27)
--- NOTE | 2019-12-22 00:22 | PN ---
Teaching Attending Note Name of Resident: Christiano Lau ATTENDING PHYSICIAN STATEMENT I saw and evaluated the patient. I reviewed the resident's note and discussed the case with the resident. I agree with the resident's findings and plan as documented. SUBJECTIVE: 49 yo M Pre-Diabetes , bipolar, GERD, peripheral neuropathy chronic diarrhea presented to ED from doctor's office for hypoxia and tachycardia. He has been having shortness of breath for 1 week worse with exertion. he also c/o dry cough for last few days. + history of sick contact through his ex-girlfriend who was hospitalized for COVID. He also admits having nausea, vomiting diarrhea. After coming to ED he was hypoxic so plaxec on nasal cannula. OBJECTIVE: Last Vital Signs Temp Pulse Resp BP Pulse Ox 99.3 F 96 H 20 101/63 97 12/21/19 23:50 12/21/19 23:50 12/21/19 23:50 12/21/19 23:50 12/21/19 23:52 GENERAL: The patient is awake, alert, and fully oriented in mild resp distress HEAD: Normocephalic, atraumatic. EYES: extraocular movements intact, sclera anicteric, conjunctiva clear. ENT: Normal voice, Moist mucous membranes. NECK: Normal range of motion, supple LUNGS: tachypmea Breath sounds equal, clear to auscultation bilaterally. No wheezes, no rhonchi, no rales. HEART: Regular rate and rhythm, normal S1 and S2 without murmur, rub or gallop. ABDOMEN: Soft, nontender, No guarding, no rebound. No CVA tenderness EXTREMITIES: Normal range of motion, no edema. No calf tenderness, negative Homans sign NEUROLOGICAL: No facial assymetry, Normal speech, PSYCH: Normal mood, normal affect. SKIN: Warm, Dry, normal turgor, CT chest was done which showed b/l ground glass opacities consistant with COVID 19 pneumonitis ASSESSMENT AND PLAN: Acute hypoxic respiratory failure likely due to b/l COVID pneumonia JANNA Pre-Diabetes , bipolar, GERD, peripheral neuropathy chronic diarrhea Admit to tele ICU consult appreciated patient is on high flow NC wean off to ventimask. NC if tolerated goal of SPo2 >93 IV decadron 6 mg daily ( duration up to 10 days) Give 1 dose of hydroxychloroquine 400 mg if QTc<500. ID eval Tab doxycycline 100 BID covid markers - ESrm,CRP, ferritin, d dimer, LDH, CPK, procal, troponin COVID isolation tylenol for fever Will consider full dose AC if D dimer is significantly eleavted DVT ppx discussed with resident
[2019-12-22 00:34] LABS: LDH 301 U/L (87-246); MAGNESIUM 2.4 mg/dL (1.8-2.4); PHOSPHOROUS 3.9 mg/dL (2.5-4.9)
--- NOTE | 2019-12-22 00:37 | HP ---
CHIEF COMPLAINT: shortness of breath PCP: Dr. Josafat Johnson HISTORY OF PRESENT ILLNESS: Pt is a 49 yo M with PMH of pre-diabetes, bipolar disorder, peripheral neuropathy, chronic diarrhea, and GERD presenting to the ED from Dr. Johnson's office for evaluation of hypoxia and hypotension. Pt reports that he was hy poxic, saturating "in the 80s", and that his BP in the office was 90s/60s. It should be noted that pt has had recent COVID exposure from his ex who was previously COVID + during the last month; tested at [facility] but results were still pending. Pt has felt intermittent SOB for the last month, but felt a worsening of his SOB in the past 1 week. SOB is worse with exertion and aggravated by episodes of coughing (non-productive of sputum). Improved at rest. He endorses associated cough, fevers and chills, chest spasms with coughing episodes but not during periods of dyspnea, and intermittent episodes of nonbloody, nonbilious emesis after some coughing spells. Also reports a sendentary lifestyle as he has been in quarantine in his [employer] apartment before he can go back to work; endorses minimal physical activity with remaining seated or in bed for extended periods of time. Denies pleuritic chest pain, calf pain, abdominal pain, rhinorrhea, changes in vision, or headaches. In addition to his main complaint, pt reports feeling lightheaded on the majority of days during this past month and reports and increase in his chronic diarrhea and 1 day last week with multiple episodes of non bloody non bilious emesis. Denies associated falls or syncope. Pt does not recall any inciting factors for a worsening of these symptoms and reports that they have coincided with his SOB. ER course was notable for: (1)IV tylenol given as pt was febrile in ED (although not documented in EMR vitals) (2)Pt was placed on HFNC and then transition to a venti mask (3)ICU team was consulted; Pt asssessed and decision made to not admit to ICU at this time. (4)Pt given azithro and ceftriaxone in ED; also Lovenox 60 (5)CTA with bilateral groundglass infiltrates concerning for COIVD 19 pneumonitis; no PE seen (6)Pt refusing ABG d/t fear of needles. Recent Travel: none; Sick Contact - Ex GF who has been COVID 19 + PAST MEDICAL HISTORY: as per HPI PAST SURGICAL HISTORY: salivary gland removal (d/t stone in salivary duct); vasectomy; lasik eye surgery FAMILY HISTORY DM in both many members of both maternal and paternal family Social History: Has been recently quarantined in his [employer] apartment; self- reporting a sedentary lifestyle; ordering mostly [employer]. Smoking:quit smoking 5 years ago; reports less than 1 ppd prior to this Alcohol: may drink alcohol on weekends; usually includes "a bottle or two of wine" Drugs: denies Allergies No Known Allergies Allergy (Verified 12/21/19 17:20) HOME MEDICATIONS: Home Medications Medication Instructions Recorded Trazodone HCl 150 mg PO HS #30 tablet 05/12/19 Pregabalin [Lyrica -] 150 mg PO BID 12/21/19 REVIEW OF SYSTEMS As per HPI. PHYSICAL EXAMINATION Vital Signs - 24 hr 12/21/19 12/21/19 12/21/19 16:30 17:22 20:04 Temperature 100 F H Pulse Rate 79 74 Pulse Rate [ 91 H Left] Respiratory 28 H 20 Rate Blood Pressure 108/72 Blood Pressure 106/67 [Left] O2 Sat by Pulse 100 96 97 Oximetry (%) 12/21/19 12/21/19 12/21/19 20:20 21:28 22:25 Temperature 99.7 F H Pulse Rate Pulse Rate [ Left] Respiratory Rate Blood Pressure Blood Pressure [Left] O2 Sat by Pulse 97 97 Oximetry (%) 12/21/19 12/21/19 23:50 23:52 Temperature 99.3 F Pulse Rate Pulse Rate [ 96 H Left] Respiratory 20 Rate Blood Pressure Blood Pressure 101/63 [Left] O2 Sat by Pulse 97 97 Oximetry (%) GENERAL: Awake, alert, and fully oriented, in no acute distress. Anxious appearing. HEAD: NCAT EYES: PERRLA, EOMI, sclera white, conjunctiva clear. EARS, NOSE, THROAT:Oropharynx clear without exudates. Moist mucous membranes. NECK: Normal range of motion, supple, trachea midline LUNGS: Breath sounds equal, decreased breath sounds at bases. No wheezes, and no crackles. No accessory muscle use. HEART: Regular rate and rhythm, normal S1 and S2 without murmur, rub or gallop. ABDOMEN: Soft, nontender, not distended, normoactive bowel sounds MUSCULOSKELETAL: moving all extremities spontaneously and equally UPPER EXTREMITIES: 2+ pulses, warm, well-perfused. No peripheral edema. LOWER EXTREMITIES: 2+ pulses, warm, well-perfused. No calf tenderness. No peripheral edema. NEUROLOGICAL: Cranial nerves II-XII grossly intact. Normal speech. Normal gait. Sensation decreased to light touch on sole of R foot. PSYCHIATRIC: Cooperative. Anxious appearing. SKIN: Warm, dry, no rashes or lesions noted. Laboratory Results - last 24 hr 12/21/19 12/21/19 12/21/19 14:45 14:45 14:45 WBC 11.3 H RBC 3.35 L Hgb 10.9 L Hct 33.1 L MCV 98.9 H MCH 32.7 MCHC 33.0 RDW 16.0 H Plt Count 268 MPV 9.1 Absolute Neuts (auto) 8.0 Neutrophils % 70.4 D Lymphocytes % 16.3 D Monocytes % 12.7 H Eosinophils % 0.4 Basophils % 0.2 Nucleated RBC % 0 ESR 33 H PT with INR 14.20 H INR 1.20 H PTT (Actin FS) 29.8 D-Dimer VBG pH POC VBG pCO2 POC VBG pO2 VBG HCO3 VBG O2 Sat (Jaden) VBG Base Excess Sodium 137 Potassium 4.0 Chloride 103 Carbon Dioxide 25 Anion Gap 9 BUN 11.0 Creatinine 1.4 H Est GFR (CKD-EPI)AfAm 66.95 Est GFR (CKD-EPI)NonAf 57.76 Random Glucose 90 Calcium 9.1 Phosphorus Magnesium Ferritin 292.5 Total Bilirubin 1.9 H AST 21 ALT 18 Alkaline Phosphatase 63 LD Total Creatine Kinase Troponin I < 0.02 B-Natriuretic Peptide Total Protein 7.3 Albumin 3.7 12/21/19 12/21/19 12/21/19 14:45 14:45 14:45 WBC RBC Hgb Hct MCV MCH MCHC RDW Plt Count MPV Absolute Neuts (auto) Neutrophils % Lymphocytes % Monocytes % Eosinophils % Basophils % Nucleated RBC % ESR PT with INR INR PTT (Actin FS) D-Dimer 520 H VBG pH 7.512 H POC VBG pCO2 28.9 L POC VBG pO2 30.4 VBG HCO3 22.6 L VBG O2 Sat (Jaden) 65.9 L VBG Base Excess 0.9 Sodium Potassium Chloride Carbon Dioxide Anion Gap BUN Creatinine Est GFR (CKD-EPI)AfAm Est GFR (CKD-EPI)NonAf Random Glucose Calcium Phosphorus Magnesium Ferritin Total Bilirubin AST ALT Alkaline Phosphatase LD Total Creatine Kinase Troponin I B-Natriuretic Peptide 14.7 Total Protein Albumin 12/21/19 23:40 WBC RBC Hgb Hct MCV MCH MCHC RDW Plt Count MPV Absolute Neuts (auto) Neutrophils % Lymphocytes % Monocytes % Eosinophils % Basophils % Nucleated RBC % ESR PT with INR INR PTT (Actin FS) D-Dimer VBG pH POC VBG pCO2 POC VBG pO2 VBG HCO3 VBG O2 Sat (Jaden) VBG Base Excess Sodium Potassium Chloride Carbon Dioxide Anion Gap BUN Creatinine Est GFR (CKD-EPI)AfAm Est GFR (CKD-EPI)NonAf Random Glucose Calcium Phosphorus 3.9 Magnesium 2.4 Ferritin 294.1 Total Bilirubin AST ALT Alkaline Phosphatase LD Total 301 H Creatine Kinase 259 Troponin I < 0.02 B-Natriuretic Peptide Total Protein Albumin ASSESSMENT/PLAN: Pt is a 49 yo M with PMH of pre-diabetes, bipolar disorder, peripheral neuropathy, and chronic diarrhea being admitted for acute hypoxic respiratory failure likely 2/2 to COVID 19 pneumonitis; also with JANNA. #Acute Hypoxic RF 2/2 to COVID19 Pneumonitis less likely bacterial CAP CTA showing bilateral GGOs, negative for PE O2 sat >93% on ventimask right now - f/u COVID19 pcr - pending - SpO2 goal >93% - ID consulted for questionable initiation of remdesivir - Vitamin C/D; Zinc - 1 dose of 400 mg plaquenil - as per day team if you want to continue; check QTc - doxy 100 bid for anti-inflammtory properties - 6 mg IV push decadron daily x 10 days, as per COVID 19 NIH guidelines - protonix PO 40 daily for GI ppx while on steroids - trend inflammatory markers (ESR, CRP, LDH, ferritin) - troponins, CK ordered to eval for myocarditis, as it has been seen with COVID - pt refused ABG at this time d/t fear of needles; attempt ABG again later - will f/u D-dimer; if > 2000, will give additional lovenox dose, as per day team (already received 60 mg lovenox in ED) - UA, legionella, strep, blood cx ordered - pulm consult as per primary team's discretion - can consider convalescent plasma if inflammatory markers continue to rise - CXR in the AM; consider daily to monitor extent of pneumonitis - tylenol PRN for fever #JANNA Likely 2/2 to COVID 19 Cr 1.4 - UA, Urine lytes ordered - avoid neprhotoxic agents - NS @ 75 cc/hr - repeat CMP in AM #Anemia (likely Anemia of Chronic Disease given normal MVC; Hb 10.9) - will obtain iron studies - as per outpatient labs, pt anemic is - will repeat CBC in AM and trend daily - transfuse if Hb< 7 - no acute signs of bleeding at this time #Pre-Diabetes Pt likely to be hyperglycemic on steroids - BGM ACHS - ISS - A1C ordered Peripheral Neuropathy - continue home lyrica 150 bid #Bipolar Disorder - continue home trazadone 150 qhs #DVT Ppx - full dose anticoagulation, as per day team once COVID confirmed positive - lovenox 60 given in ED #FEN -F - NS @ 75 cc/hr -E - monitor lytes; replete prn -N - low Na, diabetic diet #Dispo - admit to med-surg Visit type - Emergency Visit Emergency Visit: Yes ED Registration Date: 12/21/19 Care time: The patient presented to the Emergency Department on the above date and was hospitalized for further evaluation of their emergent condition. - New Patient This patient is new to me today: Yes Date on this admission: 12/22/19 - Critical Care Critical Care patient: No ATTENDING PHYSICIAN STATEMENT I saw and evaluated the patient. I reviewed the resident's note and discussed the case with the resident. I agree with the resident's findings and plan as documented. SUBJECTIVE: OBJECTIVE: ASSESSMENT AND PLAN:
[2019-12-22 01:01] LABS: URINE APPEARANCE CLEAR; URINE BILIRUBIN NEGATIVE (NEGATIVE); URINE COLOR DK YELLOW; URINE GLUCOSE (UA) NEGATIVE (NEGATIVE); URINE KETONE NEGATIVE (NEGATIVE)
[2019-12-22 01:02] LABS: EPI CELLS 6 /uL (0-25.1); HYALINE CASTS 1 /uL (0-3.1); PH,URINE 8.5 (5.0-8.0); URINE LEUK ESTERASE NEGATIVE (NEGATIVE); URINE NITRITE NEGATIVE (NEGATIVE); URINE PROTEIN TRACE (NEGATIVE); URINE RBC 9 /uL (0-23.9); URINE WBC 3 /uL (0-25.8)
[2019-12-22 01:03] LABS: URINE BACTERIA 11 /uL (0-1359)
[2019-12-22] MEDS ORDERED: ACETAMINOPHEN 325 MG TABLET (FP) ONE (02:07)
[2019-12-22] MEDS: traZODone HCL 50 MG TABLET (FP) PO SCH ×2 (03:02→21:07)
[2019-12-22] MEDS: ACETAMINOPHEN 325 MG TABLET (FP) PO PRN (03:02)
[2019-12-22 06:37] LABS: BASO % 0.1 % (0-2.0); HEMATOCRIT 30.8 % (35.4-49); HEMOGLOBIN 10.1 GM/dL (11.7-16.9); LYMPH % 6.9 % (8-40); MCH 32.7 pg (25.7-33.7); MCHC 32.9 g/dl (32.0-35.9); MEAN CELL VOLUME 99.4 fl (80-96); MONO % 8.5 % (3.8-10.2); NEUT % 84.5 % (42.8-82.8); PLATELET COUNT 254 K/MM3 (134-434); RDW 16.5 % (11.9-15.9); WHITE BLOOD COUNT 8.4 K/mm3 (4.0-10.0)
[2019-12-22 06:51] LABS: IRON SERUM 35 ug/dL (50-175); TOTAL IRON BINDING CAPACITY 305 ug/dL (250-450)
[2019-12-22 06:56] LABS: ALBUMIN 3.4 g/dl (3.4-5.0); BILIRUBIN,TOTAL 1.6 mg/dL (0.2-1); BLOOD UREA NITROGEN 13.1 mg/dL (7-18); CALCIUM 8.4 mg/dL (8.5-10.1); CREATININE 1.2 mg/dL (0.55-1.3); MAGNESIUM 2.5 mg/dL (1.8-2.4); PHOSPHOROUS 4.9 mg/dL (2.5-4.9); POTASSIUM 4.5 mmol/L (3.5-5.1); TOT PROT 7.2 g/dl (6.4-8.2)
[2019-12-22] MEDS: INSULIN SLIDING SCALE (NOVOLOG) 1 VIAL SQ SCH ×4 (07:27→21:14)
--- NOTE | 2019-12-22 09:19 | EKG ---
Test Reason : Blood Pressure : / mmHG Vent. Rate : 083 BPM Atrial Rate : 083 BPM P-R Int : 128 ms QRS Dur : 068 ms QT Int : 368 ms P-R-T Axes : 030 024 003 degrees QTc Int : 432 ms NORMAL SINUS RHYTHM NORMAL ECG WHEN COMPARED WITH ECG OF 24-JUN-2015 14:37, NO SIGNIFICANT CHANGE WAS FOUND Confirmed by MD COLE, JASON ([id number]) on 12/22/2019 9:19:38 AM Referred By: Confirmed By:JASON GALVAN MD
--- NOTE | 2019-12-22 09:25 | CON.ID ---
Consult Consult Specialty:: infectious diseases Referred by:: hospitalist Reason for Consultation:: sob,covid - History of Present Illness Chief Complaint: sob,exertional dyspnoea History of Present Illness: 49 yo M with PMH of pre-diabetes, bipolar disorder, peripheral neuropathy, chronic diarrhea, and GERD presenting to the ED from Dr. Johnson's office for evaluation of hypoxia and hypotension. Pt reports that he was hypoxic, s aturating "in the 80s", and that his BP in the office was 90s/60s. It should be noted that pt has had recent COVID exposure from his ex who was previously COVID + during the last month; tested at [facility] but results were still pending. Pt has felt intermittent SOB for the last month, but felt a worsening of his SOB in the past 1 week. SOB is worse with exertion and aggravated by episodes of coughing (non-productive of sputum). mentions that this has going on for one month. patient currently very unhappy about the room he is in mentions that he felt that his brain did not get oxygen to his brain and then he was placed on face mask and was send here currently he feels better on face mask - History Source History Provided By: Patient Limitations to Obtaining History: No Limitations - Alcohol/Substance Use Hx Alcohol Use: No - Smoking History Smoking history: Former smoker Have you smoked in the past 12 months: No Aproximately how many cigarettes per day: 1 If you are a former smoker, when did you quit?: 1 YR AGO Home Medications - Allergies Allergies/Adverse Reactions: Allergies Allergy/AdvReac Type Severity Reaction Status Date / Time No Known Allergies Allergy Verified 12/21/19 17:20 - Home Medications Home Medications: Ambulatory Orders Trazodone HCl 150 mg PO HS #30 tablet 05/12/19 Pregabalin [Lyrica -] 150 mg PO BID 12/21/19 Review of Systems - Review of Systems Constitutional: reports: Weakness, Other Eyes: reports: No Symptoms HENT: reports: No Symptoms Neck: reports: No Symptoms Cardiovascular: reports: No Symptoms Respiratory: reports: SOB, SOB on Exertion, Other Gastrointestinal: reports: No Symptoms Genitourinary: reports: No Symptoms Musculoskeletal: reports: No Symptoms Integumentary: reports: No Symptoms Neurological: reports: No Symptoms Endocrine: reports: No Symptoms Hematology/Lymphatic: reports: No Symptoms Psychiatric: reports: No Symptoms Physical Exam Vital Signs: Vital Signs Temperature 98.3 F 12/22/19 04:40 Pulse Rate 83 12/22/19 08:25 Respiratory Rate 20 12/22/19 04:40 Blood Pressure 128/64 12/22/19 04:40 O2 Sat by Pulse Oximetry (%) 94 L 12/22/19 08:25 Constitutional: Yes: Calm, Mild Distress Eyes: Yes: Conjunctiva Clear, EOM Intact HENT: Yes: Atraumatic, Normocephalic Neck: Yes: Supple, Trachea Midline Cardiovascular: Yes: Regular Rate and Rhythm Respiratory: Yes: Regular, On Venti-Mask, Poor Air Entry, Other Gastrointestinal: Yes: Normal Bowel Sounds, Soft Musculoskeletal: Yes: WNL Extremities: Yes: WNL Neurological: Yes: Alert, Oriented Psychiatric: Yes: Alert, Oriented Labs: CBC, BMP 12/22/19 05:35 12/22/19 05:35 Imaging - Results Chest X-ray: Report Reviewed, Image Reviewed X-ray: Report Reviewed, Image Reviewed Cat Scan: Report Reviewed, Image Reviewed Assessment/Plan 49 yo M with PMH of pre-diabetes, bipolar disorder, peripheral neuropathy, and chronic diarrhea being admitted for acute hypoxic respiratory failure likely 2/2 to COVID 19 pneumonitis; also with JANNA. #Acute Hypoxic RF 2/2 to COVID19 Pneumonitis #JANNA #Anemia (likely Anemia of Chronic Disease given normal MVC; Hb 10.9) #Pre-Diabetes Peripheral Neuropathy #Bipolar Disorder i thnk patient has probably covid,only thing is how long has he had it we will wait for the results,monitor his oxygen saturation we can give him a trial of remdesivir and see if it helps alsong with plasme if it does not then we will decide further mgmt await for all results resp support close monitoring patient can detoriate any time
[2019-12-22 09:55] LABS: BILIRUBIN,DIRECT 0.3 mg/dL (0.0-0.2)
[2019-12-22] MEDS ORDERED: CHOLECALCIFEROL (VIT D3) 400 UNIT (10 MCG) TABLET PO SCH (10:00)
[2019-12-22] MEDS: DEXAMETHASONE SOD PHOSPHATE 10 MG/1 ML VIAL IVPUSH SCH (10:00)
[2019-12-22] MEDS ORDERED: ENOXAPARIN NA (PORCINE) 40 MG/0.4 ML DISP.SYRIN SQ SCH ×3 (10:00→13:30)
[2019-12-22] MEDS: PREGABALIN 75 MG CAPSULE PO SCH ×2 (10:00→21:16)
[2019-12-22] MEDS: ASCORBIC ACID 500 MG TABLET (FP) PO SCH ×2 (10:00→21:14)
[2019-12-22] MEDS ORDERED: ASCORBIC ACID 250 MG TABLET (FP) PO SCH (10:00)
[2019-12-22] MEDS: PANTOPRAZOLE 40 MG TABLET PO SCH (10:00)
[2019-12-22] MEDS: CEFTRIAXONE 1 GM in SODIUM CHLORIDE 50 ML IVPB SCH (10:00)
[2019-12-22] MEDS: ZINC SULFATE 220 MG CAPSULE (FP) PO SCH ×2 (10:15→21:14)
[2019-12-22] MEDS ORDERED: DEXAMETHASONE SOD PHOSPHATE 10 MG/1 ML VIAL ONE (10:22)
[2019-12-22] MEDS ORDERED: PREGABALIN 50 MG CAPSULE ONE ×2 (10:22→10:25)
[2019-12-22] MEDS ORDERED: ZINC SULFATE 220 MG CAPSULE (FP) ONE (10:23)
[2019-12-22] MEDS ORDERED: PANTOPRAZOLE 40 MG TABLET ONE (10:23)
[2019-12-22] MEDS ORDERED: ENOXAPARIN NA (PORCINE) 40 MG/0.4 ML DISP.SYRIN SQ ONE (10:24)
[2019-12-22] MEDS ORDERED: DOXYCYCLINE HYCLATE 100 MG VIAL ONE ×2 (10:24→20:51)
[2019-12-22] MEDS ORDERED: PREGABALIN 100 MG CAPSULE ONE (10:24)
[2019-12-22] MEDS ORDERED: CEFTRIAXONE 1 GM/50 ML BAG ONE (10:24)
[2019-12-22] MEDS: DOXYCYCLINE INJECTION 100 MG in DEXTROSE 5%-WATER 100 ML IVPB SCH ×2 (10:55→21:14)
[2019-12-22] MEDS: CHOLECALCIFEROL (VIT D3) 1,000 UNIT (25 MCG) TABLET PO SCH (11:16)
--- NOTE | 2019-12-22 12:47 | PN ---
Progress Note (short form) - Note Progress Note: PULMONARY CONSULTATION DICTATED 12/22/19 IMP ACUTE HYPOXEMIC RESPIRATORY FAILURE SUSPECTED COVID 19 PNEUMONIA PRE DM BIPOLAR PERIPHERAL NEUROPATHY GERD PLAN SUPPLEMENTAL O2 INHALED BRONCHODILATORS/STEROIDS DECADRON CONVALESCENT PLASMA TRANSFUSION PENDING COVID PCR LOVENOX 40 BID MONITOR LYTES, MONITOR INFLAMMATORY MARKERS F/U CHEST X-RAYS COVID PCR PENDING COVID ANTIBODIES DR OVERTON Problem List - Problems (1) Suspected COVID-19 virus infection Code(s): Z20.828 - CONTACT W AND EXPOSURE TO OTH VIRAL COMMUNICABLE DISEASES (2) Hypoxia Code(s): R09.02 - HYPOXEMIA
[2019-12-22] MEDS: BUDESONIDE/FORMETEROL FUMARATE 160/4.5 mcg INHALER IH SCH ×2 (13:44→21:14)
--- NOTE | 2019-12-22 14:02 | CONS ---
PULMONARY CONSULTATION DATE OF CONSULTATION: 12/22/2019 REFERRING PHYSICIAN: Yelena Carson MD HISTORY OF PRESENT ILLNESS: Patient is a 49-year-old male, past medical history of diabetes, peripheral neuropathy, bipolar, chronic diarrhea, GERD, admitted to [facility] secondary to hypoxia and hypotension. Patient apparently for the past month or so was not feeling well. He has been feeling short of breath, complaining of coughing nonproductive. He states he has been having intermittent fevers and chills and chest spasm since November 25. Apparently he went for COVID test, but did not receive any results. He was exposed. His recently had COVID. Patient states for the past week or so he has been getting progressively short of breath with exertion. He states he can only walk a few feet without getting short of breath. He went to see primary care at which time he was noted to be hypoxic, saturating in the 80s with blood pressure in the 90s. He was advised to go to the emergency room. In the ER he was noted to be moderate respiratory distress. He was placed on high flow O2 and then Ventimask 50%. Patient is a nonsmoker. He denies any history of occupational exposures to chemical fumes. There is no history of recent travel. CT scan of the chest was performed which showed no evidence of DVT, but revealed evidence of extensive bilateral ground-glass infiltrates. PAST MEDICAL HISTORY: Again includes peripheral neuropathy, prediabetes, GERD, bipolar. REVIEW OF SYSTEMS: Positive shortness of breath. Positive cough. Positive chest tightness. Positive fevers. Positive chills. No hemoptysis. No abdominal pain. CURRENT MEDICATIONS: Include Decadron 6 mg daily, ceftriaxone, doxycycline, Lovenox 40 q.12, Lyrica, Desyrel, normal saline, Protonix and Orazinc. PHYSICAL EXAMINATION: General: Patient is a well-developed, well-nourished male awake, alert, mildly dyspneic, but in no acute distress. Vital Signs: He is currently afebrile. Blood pressure is 120/80. Respiratory rate is 24 and O2 saturation is 92% on 50% Venturi mask. HEENT: Normocephalic, atraumatic. Neck: Supple. Heart: Regular, S1, S2. Chest: Bilateral scattered crackles. Abdomen: Soft. Bowel sounds are positive. Extremities: No cyanosis or edema. LABORATORIES: WBC is 8.4, hemoglobin 10.1, hematocrit 30.8 with a platelet count of 254,000. ESR is 54. D-dimer is 520. Blood gas: Venous blood gas 7.52, 28, 30, bicarbonate of 22. BUN is 13, creatinine 1.2. Hemoglobin A1c is 5.6. Bilirubin is 1.6. LDH is 294 and ferritin is 299. Chest CT as noted earlier. IMPRESSION: 1. Acute hypoxemic respiratory failure secondary to suspected COVID-19 pneumonitis. 2. Prediabetes. 3. Bipolar. 4. Peripheral neuropathy. 5. Gastroesophageal reflux disease. PLAN: Supplemental O2 to maintain O2 saturation 90% or greater, inhaled bronchodilators as well as inhaled corticosteroids. Continue Decadron with convalescent plasma transfusion. Continue Lovenox 40 b.i.d. Monitor electrolytes, CBC. Monitor inflammatory markers. Follow chest x-rays. KATY OVERTON M.D. [id number]
--- NOTE | 2019-12-22 17:50 | PN ---
Physical Exam: SUBJECTIVE: Patient seen and examined in the ED, was sitting on his bed and able to have a conversation. Explained that his symptoms have been going on since early November and that he was tested for COVID on November 25 but never received any results. While he was talking, he desatted to 89% and endorsed an "annoying cough" that has been troubling him for about a month. Also, while talking to the patient, the hydraulic design engineer came in and the patient started expressing intense agitation due to his needle phobia. OBJECTIVE: Vital Signs Period Temp Pulse Resp BP Sys/Moreno Pulse Ox Last 24 Hr 98 F-99.7 F 74-96 18-24 101-157/63-80 92-99 GENERAL: overweight, AAM, appears somewhat younger than stated age, AAO x4, in mild distress and distress increased when seeing a needle HEAD: Normal with no signs of trauma, wearing mask LUNGS: CTA in the apices at the anterior chest, no breath sounds appreciated posteriorly due to provoked coughing upon deep inspiration HEART: RRR, S1, S2 without murmur ABDOMEN: Soft, distended, active bowel sounds EXTREMITIES: 2+ pulses, warm, well-perfused, no edema. PSYCH: anxious, occasionally tangential, hyperfocused on needles, pressured speech SKIN: Warm, no rashes or lesions noted Laboratory Results - last 24 hr 12/21/19 12/21/19 12/21/19 14:45 14:45 14:45 WBC 11.3 H RBC 3.35 L Hgb 10.9 L Hct 33.1 L MCV 98.9 H MCH 32.7 MCHC 33.0 RDW 16.0 H Plt Count 268 MPV 9.1 Absolute Neuts (auto) 8.0 Neutrophils % 70.4 D Lymphocytes % 16.3 D Monocytes % 12.7 H Eosinophils % 0.4 Basophils % 0.2 Nucleated RBC % 0 ESR 33 H PT with INR 14.20 H INR 1.20 H PTT (Actin FS) 29.8 D-Dimer VBG pH POC VBG pCO2 POC VBG pO2 VBG HCO3 VBG O2 Sat (Jaden) VBG Base Excess Sodium 137 Potassium 4.0 Chloride 103 Carbon Dioxide 25 Anion Gap 9 BUN 11.0 Creatinine 1.4 H Est GFR (CKD-EPI)AfAm 66.95 Est GFR (CKD-EPI)NonAf 57.76 POC Glucometer Random Glucose 90 Hemoglobin A1c % Calcium 9.1 Phosphorus Magnesium Iron TIBC Iron Saturation Unsaturated IBC Ferritin 292.5 Total Bilirubin 1.9 H Direct Bilirubin AST 21 ALT 18 Alkaline Phosphatase 63 LD Total Creatine Kinase Creatine Kinase Index CK-MB (CK-2) Troponin I < 0.02 C-Reactive Protein B-Natriuretic Peptide Total Protein 7.3 Albumin 3.7 Urine Color Urine Appearance Urine pH Ur Specific [place] Urine Protein Urine Glucose (UA) Urine Ketones Urine Blood Urine Nitrite Urine Bilirubin Urine Urobilinogen Ur Leukocyte Esterase Urine WBC (Auto) Urine RBC (Auto) Urine Casts (Auto) U Epithel Cells (Auto) Urine Bacteria (Auto) Ur Random Sodium 12/21/19 12/21/19 12/21/19 14:45 14:45 14:45 WBC RBC Hgb Hct MCV MCH MCHC RDW Plt Count MPV Absolute Neuts (auto) Neutrophils % Lymphocytes % Monocytes % Eosinophils % Basophils % Nucleated RBC % ESR PT with INR INR PTT (Actin FS) D-Dimer 520 H VBG pH 7.512 H POC VBG pCO2 28.9 L POC VBG pO2 30.4 VBG HCO3 22.6 L VBG O2 Sat (Jaden) 65.9 L VBG Base Excess 0.9 Sodium Potassium Chloride Carbon Dioxide Anion Gap BUN Creatinine Est GFR (CKD-EPI)AfAm Est GFR (CKD-EPI)NonAf POC Glucometer Random Glucose Hemoglobin A1c % Calcium Phosphorus Magnesium Iron TIBC Iron Saturation Unsaturated IBC Ferritin Total Bilirubin Direct Bilirubin AST ALT Alkaline Phosphatase LD Total Creatine Kinase Creatine Kinase Index CK-MB (CK-2) Troponin I C-Reactive Protein B-Natriuretic Peptide 14.7 Total Protein Albumin Urine Color Urine Appearance Urine pH Ur Specific [place] Urine Protein Urine Glucose (UA) Urine Ketones Urine Blood Urine Nitrite Urine Bilirubin Urine Urobilinogen Ur Leukocyte Esterase Urine WBC (Auto) Urine RBC (Auto) Urine Casts (Auto) U Epithel Cells (Auto) Urine Bacteria (Auto) Ur Random Sodium 12/21/19 12/21/19 12/21/19 23:40 23:40 23:40 WBC RBC Hgb Hct MCV MCH MCHC RDW Plt Count MPV Absolute Neuts (auto) Neutrophils % Lymphocytes % Monocytes % Eosinophils % Basophils % Nucleated RBC % ESR PT with INR INR PTT (Actin FS) D-Dimer VBG pH POC VBG pCO2 POC VBG pO2 VBG HCO3 VBG O2 Sat (Jaden) VBG Base Excess Sodium Potassium Chloride Carbon Dioxide Anion Gap BUN Creatinine Est GFR (CKD-EPI)AfAm Est GFR (CKD-EPI)NonAf POC Glucometer Random Glucose Hemoglobin A1c % Calcium Phosphorus 3.9 Magnesium 2.4 Iron TIBC Iron Saturation Unsaturated IBC Ferritin 294.1 Total Bilirubin Direct Bilirubin AST ALT Alkaline Phosphatase LD Total 301 H Creatine Kinase 259 Creatine Kinase Index No Result Required. CK-MB (CK-2) < 1.0 Troponin I < 0.02 C-Reactive Protein 10.6 H B-Natriuretic Peptide Total Protein Albumin Urine Color Dk yellow Urine Appearance Clear Urine pH 8.5 H D Ur Specific [place] 1.053 H Urine Protein Trace Urine Glucose (UA) Negative Urine Ketones Negative Urine Blood Trace Urine Nitrite Negative Urine Bilirubin Negative Urine Urobilinogen 1.0 Ur Leukocyte Esterase Negative Urine WBC (Auto) 3 Urine RBC (Auto) 9 Urine Casts (Auto) 1 U Epithel Cells (Auto) 6 Urine Bacteria (Auto) 11 Ur Random Sodium 39 L 12/22/19 12/22/19 12/22/19 05:35 05:35 05:35 WBC 8.4 RBC 3.10 L Hgb 10.1 L Hct 30.8 L MCV 99.4 H MCH 32.7 MCHC 32.9 RDW 16.5 H Plt Count 254 MPV 9.0 Absolute Neuts (auto) 7.1 Neutrophils % 84.5 H D Lymphocytes % 6.9 L D Monocytes % 8.5 Eosinophils % 0.0 D Basophils % 0.1 Nucleated RBC % 0 ESR PT with INR INR PTT (Actin FS) D-Dimer VBG pH POC VBG pCO2 POC VBG pO2 VBG HCO3 VBG O2 Sat (Jaden) VBG Base Excess Sodium 138 Potassium 4.5 Chloride 105 Carbon Dioxide 23 Anion Gap 10 BUN 13.1 Creatinine 1.2 Est GFR (CKD-EPI)AfAm 80.66 Est GFR (CKD-EPI)NonAf 69.59 POC Glucometer Random Glucose 142 H Hemoglobin A1c % Calcium 8.4 L Phosphorus 4.9 Magnesium 2.5 H Iron TIBC Iron Saturation Unsaturated IBC Ferritin 299.1 Total Bilirubin 1.6 H Direct Bilirubin 0.3 H AST 19 ALT 20 Alkaline Phosphatase 63 LD Total 294 H Creatine Kinase 256 Creatine Kinase Index No Result Required. CK-MB (CK-2) < 1.0 Troponin I < 0.02 C-Reactive Protein 12.4 H B-Natriuretic Peptide Total Protein 7.2 Albumin 3.4 Urine Color Urine Appearance Urine pH Ur Specific [place] Urine Protein Urine Glucose (UA) Urine Ketones Urine Blood Urine Nitrite Urine Bilirubin Urine Urobilinogen Ur Leukocyte Esterase Urine WBC (Auto) Urine RBC (Auto) Urine Casts (Auto) U Epithel Cells (Auto) Urine Bacteria (Auto) Ur Random Sodium 12/22/19 12/22/19 12/22/19 05:35 05:35 05:35 WBC RBC Hgb Hct MCV MCH MCHC RDW Plt Count MPV Absolute Neuts (auto) Neutrophils % Lymphocytes % Monocytes % Eosinophils % Basophils % Nucleated RBC % ESR 54 H PT with INR INR PTT (Actin FS) D-Dimer 362 VBG pH POC VBG pCO2 POC VBG pO2 VBG HCO3 VBG O2 Sat (Jaden) VBG Base Excess Sodium Potassium Chloride Carbon Dioxide Anion Gap BUN Creatinine Est GFR (CKD-EPI)AfAm Est GFR (CKD-EPI)NonAf POC Glucometer Random Glucose Hemoglobin A1c % Calcium Phosphorus Magnesium Iron 35 L TIBC 305 Iron Saturation 11 L Unsaturated IBC 270 Ferritin Total Bilirubin Direct Bilirubin AST ALT Alkaline Phosphatase LD Total Creatine Kinase Creatine Kinase Index CK-MB (CK-2) Troponin I C-Reactive Protein B-Natriuretic Peptide Total Protein Albumin Urine Color Urine Appearance Urine pH Ur Specific [place] Urine Protein Urine Glucose (UA) Urine Ketones Urine Blood Urine Nitrite Urine Bilirubin Urine Urobilinogen Ur Leukocyte Esterase Urine WBC (Auto) Urine RBC (Auto) Urine Casts (Auto) U Epithel Cells (Auto) Urine Bacteria (Auto) Ur Random Sodium 12/22/19 12/22/19 12/22/19 05:35 10:30 16:44 WBC RBC Hgb Hct MCV MCH MCHC RDW Plt Count MPV Absolute Neuts (auto) Neutrophils % Lymphocytes % Monocytes % Eosinophils % Basophils % Nucleated RBC % ESR PT with INR INR PTT (Actin FS) D-Dimer VBG pH POC VBG pCO2 POC VBG pO2 VBG HCO3 VBG O2 Sat (Jaden) VBG Base Excess Sodium Potassium Chloride Carbon Dioxide Anion Gap BUN Creatinine Est GFR (CKD-EPI)AfAm Est GFR (CKD-EPI)NonAf POC Glucometer 150 145 Random Glucose Hemoglobin A1c % 5.6 Calcium Phosphorus Magnesium Iron TIBC Iron Saturation Unsaturated IBC Ferritin Total Bilirubin Direct Bilirubin AST ALT Alkaline Phosphatase LD Total Creatine Kinase Creatine Kinase Index CK-MB (CK-2) Troponin I C-Reactive Protein B-Natriuretic Peptide Total Protein Albumin Urine Color Urine Appearance Urine pH Ur Specific [place] Urine Protein Urine Glucose (UA) Urine Ketones Urine Blood Urine Nitrite Urine Bilirubin Urine Urobilinogen Ur Leukocyte Esterase Urine WBC (Auto) Urine RBC (Auto) Urine Casts (Auto) U Epithel Cells (Auto) Urine Bacteria (Auto) Ur Random Sodium Active Medications Generic Name Dose Route Start Last Admin Trade Name Freq PRN Reason Stop Dose Admin Acetaminophen 650 mg 12/22/19 01:50 12/22/19 03:02 Tylenol - PO 650 mg Q6H PRN Administration FEVER Ascorbic Acid 500 mg 12/22/19 10:00 12/22/19 10:00 Vitamin C - PO 500 mg BID PAULETTE Administration Budesonide/Formoterol Fumarate 2 puff 12/22/19 13:00 12/22/19 13:44 Symbicort 160/4.5mcg - IH 2 puff BID PAULETTE Administration Cholecalciferol 2,000 unit 12/22/19 10:00 12/22/19 11:16 Vitamin D3 - PO 2,000 unit DAILY PAULETTE Administration Dexamethasone Sodium Phosphate 6 mg 12/22/19 10:00 12/22/19 10:00 Decadron Injection - IVPUSH 6 mg DAILY PAULETTE Administration Enoxaparin Sodium 40 mg 12/22/19 22:00 Lovenox - SQ BID PAULETTE Doxycycline Hyclate 100 mg/ 100 mls @ 100 mls/hr 12/22/19 10:00 12/22/19 10:55 Dextrose IVPB 100 mls/hr BID PAULETTE Administration Sodium Chloride 1,000 mls @ 75 mls/hr 12/21/19 23:00 12/21/19 23:27 Normal Saline - IV 75 mls/hr ASDIR PAULETTE Administration Ceftriaxone Sodium 1 gm/ 50 mls @ 100 mls/hr 12/22/19 10:00 12/22/19 10:00 Sodium Chloride IVPB 100 mls/hr DAILY PAULETTE Administration Protocol Insulin Aspart 1 vial 12/22/19 07:00 12/22/19 16:49 Novolog Vial Sliding Scale - SQ Not Given ACHS PAULETTE Protocol Pantoprazole Sodium 40 mg 12/22/19 10:00 12/22/19 10:00 Protonix - PO 40 mg DAILY PAULETTE Administration Pregabalin 150 mg 12/22/19 10:00 12/22/19 10:00 Lyrica - PO 150 mg BID PAULETTE Administration Trazodone HCl 150 mg 12/22/19 01:39 12/22/19 03:02 Desyrel - PO 150 mg HS PAULETTE Administration Zinc Sulfate 220 mg 12/22/19 10:00 12/22/19 10:15 Orazinc - PO 220 mg BID PAULETTE Administration ASSESSMENT/PLAN: 49yo M with PMHx of pre-diabetes, bipolar disorder, peripheral neuropathy, and chronic diarrhea being admitted for acute hypoxic respiratory failure likely 2/2 to COVID 19 pneumonitis; also with JANNA. #Acute Hypoxic RF 2/2 to COVID19 Pneumonitis less likely bacterial CAP CTA showing bilateral GGOs, negative for PE O2 sat >93% on ventimask right now - f/u COVID19 pcr - pending - SpO2 goal >93% - ID consulted: Dr. Oreilly considering initiation of remdesivir - pulm consulted: Dr. Acosta considering convalescent plasma transfusion - Vitamin C/D; Zinc - doxy 100 bid for anti-inflammtory properties - 6 mg IV push dexamethasone daily x 10 days, as per COVID 19 NIH guidelines - protonix PO 40 daily for GI ppx while on steroids - tylenol PRN for fever - 1 dose of 400 mg plaquenil received - ?continue? need to check QTc - continue trending inflammatory markers (ESR, CRP, LDH, ferritin, D-dimer) - troponins, CK ordered to eval for myocarditis, as it has been seen with COVID - continue attempting ABGs despite patient fear of needles - f/u D-dimer; if > 2000, will give additional lovenox dose, as per day team (already received 60 mg lovenox in ED) - UA, legionella, strep, blood cx ordered - CXR in the AM - continue monitoring extent of pneumonitis #JANNA - resolving Likely 2/2 to COVID 19 Cr from 1.4 to 1.2 - UA, Urine lytes unremarkable - avoid nephrotoxic agents - NS @ 75 cc/hr - repeat CMP in AM #Anemia (likely Anemia of Chronic Disease given normal MVC) - Hgb downtrending from 10.9 to 10.1 - iron studies showing decreased iron 35 but TIBC and ferritin WNL - will repeat CBC in AM and trend daily - transfuse if Hb < 7 - no acute signs of bleeding at this time #Pre-Diabetes Pt likely to be hyperglycemic on steroids, A1C 5.6 - BGM ACHS ISS Peripheral Neuropathy - continue home lyrica 150 bid #Bipolar Disorder - continue home trazadone 150 qhs - trazodone is not a medication indicated for treatment of bipolar disorder - recommend f/u with psychiatrist in outpatient setting #DVT Ppx - full dose anticoagulation, as per day team once COVID confirmed positive - lovenox 60 given in ED #FEN -F - NS @ 75 cc/hr -E - monitor lytes; replete prn -N - low Na, diabetic diet #Dispo - admit to med-surg Visit type - Emergency Visit Emergency Visit: Yes ED Registration Date: 12/21/19 Care time: The patient presented to the Emergency Department on the above date and was hospitalized for further evaluation of their emergent condition. - New Patient This patient is new to me today: Yes Date on this admission: 12/22/19 - Critical Care Critical Care patient: No - Discharge Referral Referred to [facility] No ATTENDING PHYSICIAN STATEMENT I saw and evaluated the patient. I reviewed the resident's note and discussed the case with the resident. I agree with the resident's findings and plan as documented. SUBJECTIVE: OBJECTIVE: ASSESSMENT AND PLAN:
[2019-12-22] MEDS ORDERED: DEXTROSE 5%-WATER 100 ML IVPB ONE (20:52)
[2019-12-22] MEDS: ENOXAPARIN NA (PORCINE) 40 MG/0.4 ML DISP.SYRIN SQ SCH (21:14)
[2019-12-22] MEDS: SODIUM CHLORIDE 1,000 ML IV SCH (23:00)
[2019-12-23] MEDS: INSULIN SLIDING SCALE (NOVOLOG) 1 VIAL SQ SCH ×4 (06:08→22:55)
[2019-12-23 08:04] LABS: ALBUMIN 3.2 g/dl (3.4-5.0); BILIRUBIN,TOTAL 1.4 mg/dL (0.2-1); BLOOD UREA NITROGEN 15.5 mg/dL (7-18); CALCIUM 8.6 mg/dL (8.5-10.1); CREATININE 1.2 mg/dL (0.55-1.3); MAGNESIUM 2.6 mg/dL (1.8-2.4); POTASSIUM 4.2 mmol/L (3.5-5.1); TOT PROT 6.7 g/dl (6.4-8.2)
[2019-12-23 08:10] LABS: BASO % 0.2 % (0-2.0); EOS % 0.5 % (0-4.5); HEMATOCRIT 29.4 % (35.4-49); HEMOGLOBIN 9.5 GM/dL (11.7-16.9); LYMPH % 14.7 % (8-40); MCH 32.3 pg (25.7-33.7); MCHC 32.4 g/dl (32.0-35.9); MEAN CELL VOLUME 99.9 fl (80-96); MEAN PLT VOLUME 9.4 fl (7.5-11.1); NEUT % 74.6 % (42.8-82.8); PLATELET COUNT 274 K/MM3 (134-434); RBC 2.94 M/mm3 (4.00-5.60); RDW 16.7 % (11.9-15.9); WHITE BLOOD COUNT 12.3 K/mm3 (4.0-10.0)
[2019-12-23] MEDS ORDERED: DEXTROSE 5%-WATER 100 ML IVPB ONE ×2 (09:02→22:34)
[2019-12-23] MEDS ORDERED: cefTRIAXone SODIUM 1 GM VIAL ONE (09:02)
[2019-12-23] MEDS ORDERED: DOXYCYCLINE HYCLATE 100 MG VIAL ONE ×2 (09:02→22:34)
[2019-12-23] MEDS ORDERED: SODIUM CHLORIDE 50 ML IVPB ONE (09:03)
[2019-12-23] MEDS: DEXAMETHASONE SOD PHOSPHATE 10 MG/1 ML VIAL IVPUSH SCH (09:58)
[2019-12-23] MEDS: ENOXAPARIN NA (PORCINE) 40 MG/0.4 ML DISP.SYRIN SQ SCH ×2 (09:58→22:43)
[2019-12-23] MEDS: PREGABALIN 75 MG CAPSULE PO SCH ×2 (09:58→22:42)
[2019-12-23] MEDS: ZINC SULFATE 220 MG CAPSULE (FP) PO SCH ×2 (09:59→22:42)
[2019-12-23] MEDS: PANTOPRAZOLE 40 MG TABLET PO SCH (09:59)
[2019-12-23] MEDS: CHOLECALCIFEROL (VIT D3) 1,000 UNIT (25 MCG) TABLET PO SCH (09:59)
[2019-12-23] MEDS: ASCORBIC ACID 500 MG TABLET (FP) PO SCH ×2 (09:59→22:42)
[2019-12-23] MEDS: DOXYCYCLINE INJECTION 100 MG in DEXTROSE 5%-WATER 100 ML IVPB SCH ×2 (09:59→22:44)
[2019-12-23] MEDS: BUDESONIDE/FORMETEROL FUMARATE 160/4.5 mcg INHALER IH SCH ×2 (09:59→22:44)
--- NOTE | 2019-12-23 11:17 | PN ---
Progress Note, Physician History of Present Illness: continues to be very sob drops o2 quite low still requiring the face mask - Current Medication List Current Medications: Active Medications Acetaminophen (Tylenol -) 650 mg PO Q6H PRN PRN Reason: FEVER Last Admin: 12/22/19 03:02 Dose: 650 mg Documented by: Ascorbic Acid (Vitamin C -) 500 mg PO BID [facility] Last Admin: 12/23/19 09:59 Dose: 500 mg Documented by: Budesonide/Formoterol Fumarate (Symbicort 160/4.5mcg -) 2 puff IH BID [facility] Last Admin: 12/23/19 09:59 Dose: 2 puff Documented by: Cholecalciferol (Vitamin D3 -) 2,000 unit PO DAILY [facility] Last Admin: 12/23/19 09:59 Dose: 2,000 unit Documented by: Dexamethasone Sodium Phosphate (Decadron Injection -) 6 mg IVPUSH DAILY [facility] Last Admin: 12/23/19 09:58 Dose: 6 mg Documented by: Enoxaparin Sodium (Lovenox -) 40 mg SQ BID [facility] Last Admin: 12/23/19 09:58 Dose: 40 mg Documented by: Doxycycline Hyclate 100 mg/ (Dextrose) 100 mls @ 100 mls/hr IVPB BID [facility] Last Admin: 12/23/19 09:59 Dose: 100 mls/hr Documented by: Sodium Chloride (Normal Saline -) 1,000 mls @ 75 mls/hr IV ASDIR [facility] Last Admin: 12/22/19 23:00 Dose: 75 mls/hr Documented by: Ceftriaxone Sodium 1 gm/ (Sodium Chloride) 50 mls @ 100 mls/hr IVPB DAILY [facility]; Protocol Last Admin: 12/22/19 10:00 Dose: 100 mls/hr Documented by: Insulin Aspart (Novolog Vial Sliding Scale -) 1 vial SQ ACHS [facility]; Protocol Last Admin: 12/23/19 06:08 Dose: Not Given Documented by: Pantoprazole Sodium (Protonix -) 40 mg PO DAILY [facility] Last Admin: 12/23/19 09:59 Dose: 40 mg Documented by: Pregabalin (Lyrica -) 150 mg PO BID [facility] Last Admin: 12/23/19 09:58 Dose: 150 mg Documented by: Trazodone HCl (Desyrel -) 150 mg PO HS [facility] Last Admin: 12/22/19 21:07 Dose: 150 mg Documented by: Zinc Sulfate (Orazinc -) 220 mg PO BID PAULETTE Last Admin: 12/23/19 09:59 Dose: 220 mg Documented by: - Objective Vital Signs: Vital Signs Temperature 98.2 F 12/23/19 06:00 Pulse Rate 96 H 12/23/19 09:10 Respiratory Rate 12/23/19 09:00 Blood Pressure 110/76 12/23/19 06:00 O2 Sat by Pulse Oximetry (%) 92 L 12/23/19 09:10 Constitutional: Yes: Calm, Mild Distress Cardiovascular: Yes: S1, S2 Respiratory: Yes: Regular, CTA Bilaterally, On Venti-Mask Gastrointestinal: Yes: Normal Bowel Sounds, Soft Musculoskeletal: Yes: WNL Extremities: Yes: WNL Neurological: Yes: Alert, Oriented Labs: CBC, BMP 12/23/19 06:04 12/23/19 06:04 INR, PTT INR 1.20 (0.83-1.09) H 12/21/19 14:45 Fibrinogen > 500.0 mg/dL (238-498) H 12/23/19 06:04 Assessment/Plan 49 yo M with PMH of pre-diabetes, bipolar disorder, peripheral neuropathy, and chronic diarrhea being admitted for acute hypoxic respiratory failure likely 2/2 to COVID 19 pneumonitis; also with JANNA. #Acute Hypoxic RF 2/2 to COVID19 Pneumonitis #JANNA #Anemia (likely Anemia of Chronic Disease given normal MVC; Hb 10.9) #Pre-Diabetes Peripheral Neuropathy #Bipolar Disorder even though the patients result is negative for covid i strongly suspect he has covid should consider repeat testing continue abx monitor markers and wbc if wbc starts increasing will escalate abx resp support rest as per the team
--- NOTE | 2019-12-23 11:55 | PN ---
Progress Note (short form) - Note Progress Note: PULMONARY Still short of breath, requiring 50% ventimask. COVID19 PCR and antibodies negative. Vital Signs Period Temp Pulse Resp BP Sys/Moreno Pulse Ox Last 24 Hr 97.9 F-98.2 F 52-96 18-20 110-157/71-78 85-99 Gen: tachypneic at rest Heart: RRR Lung: decreased breath sounds at the bases Abd: soft, nontender Ext: no edema CBC, BMP 12/23/19 06:04 12/23/19 06:04 Active Medications Acetaminophen (Tylenol -) 650 mg PO Q6H PRN PRN Reason: FEVER Last Admin: 12/22/19 03:02 Dose: 650 mg Documented by: Ascorbic Acid (Vitamin C -) 500 mg PO BID [facility] Last Admin: 12/23/19 09:59 Dose: 500 mg Documented by: Budesonide/Formoterol Fumarate (Symbicort 160/4.5mcg -) 2 puff IH BID [facility] Last Admin: 12/23/19 09:59 Dose: 2 puff Documented by: Cholecalciferol (Vitamin D3 -) 2,000 unit PO DAILY [facility] Last Admin: 12/23/19 09:59 Dose: 2,000 unit Documented by: Dexamethasone Sodium Phosphate (Decadron Injection -) 6 mg IVPUSH DAILY [facility] Last Admin: 12/23/19 09:58 Dose: 6 mg Documented by: Enoxaparin Sodium (Lovenox -) 40 mg SQ BID [facility] Last Admin: 12/23/19 09:58 Dose: 40 mg Documented by: Doxycycline Hyclate 100 mg/ (Dextrose) 100 mls @ 100 mls/hr IVPB BID [facility] Last Admin: 12/23/19 09:59 Dose: 100 mls/hr Documented by: Sodium Chloride (Normal Saline -) 1,000 mls @ 75 mls/hr IV ASDIR [facility] Last Admin: 12/22/19 23:00 Dose: 75 mls/hr Documented by: Ceftriaxone Sodium 1 gm/ (Sodium Chloride) 50 mls @ 100 mls/hr IVPB DAILY [facility]; Protocol Last Admin: 12/22/19 10:00 Dose: 100 mls/hr Documented by: Insulin Aspart (Novolog Vial Sliding Scale -) 1 vial SQ ACHS [facility]; Protocol Last Admin: 12/23/19 06:08 Dose: Not Given Documented by: Pantoprazole Sodium (Protonix -) 40 mg PO DAILY [facility] Last Admin: 12/23/19 09:59 Dose: 40 mg Documented by: Pregabalin (Lyrica -) 150 mg PO BID [facility] Last Admin: 12/23/19 09:58 Dose: 150 mg Documented by: Trazodone HCl (Desyrel -) 150 mg PO [facility] Last Admin: 12/22/19 21:07 Dose: 150 mg Documented by: Zinc Sulfate (Orazinc -) 220 mg PO BID [facility] Last Admin: 12/23/19 09:59 Dose: 220 mg Documented by: A/P Acute Hypoxic Respiratory Failure Suspected COVID19 Pneumonia Bipolar Disorder GERD - O2 to keep SpO2 >90% - continue decadron - continue anticoagulation - trend inflammatory markers - continu e antibiotics - pulse oximetry monitoring
[2019-12-23] MEDS: CEFTRIAXONE 1 GM in SODIUM CHLORIDE 50 ML IVPB SCH (12:40)
[2019-12-23] MEDS ORDERED: QUEtiapine FUMARATE 25 MG TABLET PO ONE (14:00)
--- NOTE | 2019-12-23 17:21 | PN ---
<Alejandra Barrett - Last Filed: 12/23/19 17:25> Physical Exam: SUBJECTIVE: Patient seen this am, feels that there has been no improvement since yesterday and that he is experiencing increased anxiety and depression. However, he explained that this depression is different from his bipolar depression - this is due to the unfamiliar environment and not knowing what is really going on with him. Also, he said that he take quetiapine for his bipolar disorder but due to covid has been unable to f/u with his psychiatrist and has therefore not had his meds in a while. He knew his home medications with confidence: 150 trazodone, 150 lyrica, and 400 quetiapine. We also discussed the long-term consequences of cigaret smoking, as the patient has a 20 year smoking history of 2-3ppd (stopped smoking about 5 years ago). OBJECTIVE: Vital Signs Period Temp Pulse Resp BP Sys/Moreno Pulse Ox Last 24 Hr 97.9 F-98.2 F 52-96 20-20 110-154/69-77 85-95 PE not done as COVID results are pending. With 6 feet distance, patient appeared unchanged from yesterday. Sitting on the edge of his bed eating while talking to me, wearing the ventimask. Laboratory Results - last 24 hr 12/21/19 12/22/19 12/22/19 18:45 16:44 21:11 WBC RBC Hgb Hct MCV MCH MCHC RDW Plt Count MPV Absolute Neuts (auto) Neutrophils % Lymphocytes % Monocytes % Eosinophils % Basophils % Nucleated RBC % Fibrinogen D-Dimer Sodium Potassium Chloride Carbon Dioxide Anion Gap BUN Creatinine Est GFR (CKD-EPI)AfAm Est GFR (CKD-EPI)NonAf POC Glucometer 145 146 Random Glucose Calcium Phosphorus Magnesium Ferritin Total Bilirubin AST ALT Alkaline Phosphatase LD Total C-Reactive Protein Total Protein Albumin COVID-19 (JAZMIN) Not detected SARS-CoV-2 Ab Interp 12/23/19 12/23/19 12/23/19 05:31 06:04 06:04 WBC RBC Hgb Hct MCV MCH MCHC RDW Plt Count MPV Absolute Neuts (auto) Neutrophils % Lymphocytes % Monocytes % Eosinophils % Basophils % Nucleated RBC % Fibrinogen > 500.0 H D-Dimer 418 Sodium Potassium Chloride Carbon Dioxide Anion Gap BUN Creatinine Est GFR (CKD-EPI)AfAm Est GFR (CKD-EPI)NonAf POC Glucometer 83 Random Glucose Calcium Phosphorus Magnesium Ferritin Total Bilirubin AST ALT Alkaline Phosphatase LD Total C-Reactive Protein Total Protein Albumin COVID-19 (JAZMIN) SARS-CoV-2 Ab Interp Non-reactive 12/23/19 12/23/19 12/23/19 06:04 06:04 12:32 WBC 12.3 H RBC 2.94 L Hgb 9.5 L Hct 29.4 L MCV 99.9 H MCH 32.3 MCHC 32.4 RDW 16.7 H Plt Count 274 MPV 9.4 Absolute Neuts (auto) 9.2 H Neutrophils % 74.6 Lymphocytes % 14.7 D Monocytes % 10.0 Eosinophils % 0.5 D Basophils % 0.2 Nucleated RBC % 0 Fibrinogen D-Dimer Sodium 140 Potassium 4.2 Chloride 106 Carbon Dioxide 23 Anion Gap 11 BUN 15.5 Creatinine 1.2 Est GFR (CKD-EPI)AfAm 80.66 Est GFR (CKD-EPI)NonAf 69.59 POC Glucometer 120 Random Glucose 110 H Calcium 8.6 Phosphorus 5.0 H Magnesium 2.6 H Ferritin 294.8 Total Bilirubin 1.4 H AST 15 ALT 18 Alkaline Phosphatase 54 LD Total 279 H C-Reactive Protein 7.9 H Total Protein 6.7 Albumin 3.2 L COVID-19 (JAZMIN) SARS-CoV-2 Ab Interp Active Medications Generic Name Dose Route Start Last Admin Trade Name Freq PRN Reason Stop Dose Admin Acetaminophen 650 mg 12/22/19 01:50 12/22/19 03:02 Tylenol - PO 650 mg Q6H PRN Administration FEVER Ascorbic Acid 500 mg 12/22/19 10:00 12/23/19 09:59 Vitamin C - PO 500 mg BID PAULETTE Administration Budesonide/Formoterol Fumarate 2 puff 12/22/19 13:00 12/23/19 09:59 Symbicort 160/4.5mcg - IH 2 puff BID PAULETTE Administration Cholecalciferol 2,000 unit 12/22/19 10:00 12/23/19 09:59 Vitamin D3 - PO 2,000 unit DAILY PAULETTE Administration Enoxaparin Sodium 40 mg 12/22/19 22:00 12/23/19 09:58 Lovenox - SQ 40 mg BID PAULETTE Administration Doxycycline Hyclate 100 mg/ 100 mls @ 100 mls/hr 12/22/19 10:00 12/23/19 09:59 Dextrose IVPB 100 mls/hr BID PAULETTE Administration Sodium Chloride 1,000 mls @ 75 mls/hr 12/21/19 23:00 12/22/19 23:00 Normal Saline - IV 75 mls/hr ASDIR PAULETTE Administration Ceftriaxone Sodium 1 gm/ 50 mls @ 100 mls/hr 12/22/19 10:00 12/23/19 12:40 Sodium Chloride IVPB 100 mls/hr DAILY PAULETTE Administration Protocol Insulin Aspart 1 vial 12/22/19 07:00 12/23/19 12:40 Novolog Vial Sliding Scale - SQ Not Given ACHS PAULETTE Protocol Methylprednisolone Sodium Succinate 60 mg 12/23/19 22:00 Solu-Medrol - IVPUSH Q12H PAULETTE Pantoprazole Sodium 40 mg 12/22/19 10:00 12/23/19 09:59 Protonix - PO 40 mg DAILY PAULETTE Administration Pregabalin 150 mg 12/22/19 10:00 12/23/19 09:58 Lyrica - PO 150 mg BID PAULETTE Administration Quetiapine Fumarate 25 mg 12/23/19 22:00 Seroquel - PO HS PAULETTE Trazodone HCl 150 mg 12/22/19 01:39 12/22/19 21:07 Desyrel - PO 150 mg HS PAULETTE Administration Zinc Sulfate 220 mg 12/22/19 10:00 12/23/19 09:59 Orazinc - PO 220 mg BID PAULETTE Administration ASSESSMENT/PLAN: 49yo M with PMHx of pre-diabetes, bipolar disorder, peripheral neuropathy, smoking hx (stopped 5 years ago), and chronic diarrhea being admitted for acute hypoxic respiratory failure likely 2/2 to COVID 19 pneumonitis; also with JANNA. #Acute Hypoxic RF 2/2 to COVID19 Pneumonitis less likely bacterial CAP CTA showing bilateral GGOs, negative for PE - initial COVID serology was not detected - repeat test is pending - SpO2 goal >93% - ID consulted: Dr. Oreilly 12/22/19 considering initiation of remdesivir - pulm consulted: Dr. Acosta 12/22/19 considering convalescent plasma transfusion - Vitamin C/D; Zinc - doxy 100 bid for anti-inflammtory properties - 6 mg IV push dexamethasone daily x 10 days, as per COVID 19 NIH guidelines - protonix PO 40 daily for GI ppx while on steroids - tylenol PRN for fever - 1 dose of 400 mg plaquenil received - ?continue? QTc 445 - continue trending inflammatory markers (CRP, LDH, ferritin, D-dimer) - troponins, CK ordered to eval for myocarditis, as it has been seen with COVID - continue attempting ABGs despite patient fear of needles - f/u D-dimer; if > 2000, will give additional lovenox dose, as per day team (already received 60 mg lovenox in ED) - UA, legionella, strep, blood cx ordered - CXR in the AM - continue monitoring extent of pneumonitis #JANNA - resolving Likely 2/2 to COVID 19 Cr from 1.4 to 1.2 - UA, Urine lytes unremarkable - avoid nephrotoxic agents - d/c's fluids - monitor Cr #Anemia (likely Anemia of Chronic Disease given normal MVC) - Hgb downtrending from 10.9 to 10.1 to 9.5 - iron studies showing decreased iron 35 but TIBC and ferritin WNL - continue trending daily - transfuse if Hb < 7 - no acute signs of bleeding at this time #Pre-Diabetes Pt likely to be hyperglycemic on steroids, A1C 5.6 - BGM ACHS ISS Peripheral Neuropathy - continue home lyrica 150 bid #Bipolar Disorder - continue home trazadone 150 qhs - trazodone is not a medication indicated for treatment of bipolar disorder - placed psych consult and appreciate recs - patient stated that he normally takes quetiapine 400 - started quetiapine 25 at nighttime and awaiting psych recs - monitor daily QTc #PPX - DVT: enoxaparin - GI: pantoprazole #FEN -F - no standing fluids -E - monitor lytes; replete prn -N - low Na, diabetic diet #Dispo - admit to med-surg Visit type - Emergency Visit Emergency Visit: Yes ED Registration Date: 12/21/19 Care time: The patient presented to the Emergency Department on the above date and was hospitalized for further evaluation of their emergent condition. - New Patient This patient is new to me today: No - Critical Care Critical Care patient: No ATTENDING PHYSICIAN STATEMENT I saw and evaluated the patient. I reviewed the resident's note and discussed the case with the resident. I agree with the resident's findings and plan as documented. SUBJECTIVE: OBJECTIVE: ASSESSMENT AND PLAN: <MatthewstewartYelena mg - Last Filed: 12/23/19 19:21> Physical Exam: Patient is ON vm NOW PE: per resident's note on CT of the chest: Bilateral ground glass pulmonary Infiltrates A/P: #BL ground glass pulmonary infiltrates: highly suspesious for covid. daily CRp/ddimer/ldh/ferritin, on iv steroid continue given plaquenil x 1 dose qtc monitor, pulm on the case lovenox 40mgbid ATTENDING PHYSICIAN STATEMENT I saw and evaluated the patient. I reviewed the resident's note and discussed the case with the resident. I agree with the resident's findings and plan as documented. SUBJECTIVE: OBJECTIVE: ASSESSMENT AND PLAN:
--- NOTE | 2019-12-23 18:12 | CON.PSY ---
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 Patient was disgnosed with Bi POlar disorder last year at [facility]. Had been stablized on Seroquel 25 mg P9o bis and Trazadone 150mh po hs. Patient was never given Carlisle or Depakote or Lamictal. He repoerts that he does very well on this combination and wants to continue with these two meds.. Having trouble having finding a Psych but spoke to someone @ [facility] on [address] Hopefully will see some one there soon. - Previous Psychiatric Treatment Outpatient: More than 6 mos ago Inpatient: One prior admission - Previous Substance Abuse Treatment Outpatient: None Inpatient: None - Reason for Previous Treatment Reason for Previous Treatment: Biploar Illness - Current Medications Current Medications: Active Medications Acetaminophen (Tylenol -) 650 mg PO Q6H PRN PRN Reason: FEVER Last Admin: 12/22/19 03:02 Dose: 650 mg Documented by: Ascorbic Acid (Vitamin C -) 500 mg PO BID [facility] Last Admin: 12/23/19 09:59 Dose: 500 mg Documented by: Budesonide/Formoterol Fumarate (Symbicort 160/4.5mcg -) 2 puff IH BID [facility] Last Admin: 12/23/19 09:59 Dose: 2 puff Documented by: Cholecalciferol (Vitamin D3 -) 2,000 unit PO DAILY [facility] Last Admin: 12/23/19 09:59 Dose: 2,000 unit Documented by: Enoxaparin Sodium (Lovenox -) 40 mg SQ BID [facility] Last Admin: 12/23/19 09:58 Dose: 40 mg Documented by: Doxycycline Hyclate 100 mg/ (Dextrose) 100 mls @ 100 mls/hr IVPB BID [facility] Last Admin: 12/23/19 09:59 Dose: 100 mls/hr Documented by: Ceftriaxone Sodium 1 gm/ (Sodium Chloride) 50 mls @ 100 mls/hr IVPB DAILY [facility]; Protocol Last Admin: 12/23/19 12:40 Dose: 100 mls/hr Documented by: Insulin Aspart (Novolog Vial Sliding Scale -) 1 vial SQ ACHS [facility]; Protocol Last Admin: 12/23/19 17:03 Dose: Not Given Documented by: Methylprednisolone Sodium Succinate (Solu-Medrol -) 60 mg IVPUSH Q12H [facility] Pantoprazole Sodium (Protonix -) 40 mg PO DAILY [facility] Last Admin: 12/23/19 09:59 Dose: 40 mg Documented by: Pregabalin (Lyrica -) 150 mg PO BID [facility] Last Admin: 12/23/19 09:58 Dose: 150 mg Documented by: Trazodone HCl (Desyrel -) 150 mg PO HS [facility] Last Admin: 12/22/19 21:07 Dose: 150 mg Documented by: Zinc Sulfate (Orazinc -) 220 mg PO BID [facility] Last Admin: 12/23/19 09:59 Dose: 220 mg Documented by: - Allergies Allergies: Allergies Allergy/AdvReac Type Severity Reaction Status Date / Time lactose AdvReac Mild Verified 12/22/19 16:08 - Current Living Status Usual Living Arrangement: Alone - Current Mental Status Evaluation Appearance: Well Groomed Attitude: Cooperative - Affect Affect: Full Range Appropriateness: Appropriate to Content - Mood Mood: Euthymic - Speech/Language Expressive: Coherent - Psychomotor Activity Psychomotor Activity: Normal - Thought Content Hallucinations: Absent Delusions: Absent - Self Perception Self Perception: No Impairment - Cognition Attention: Alert Orientation: Time Memory, Immediate Recall: Intact Memory, Remote with Promptin/3 - Concentration Serial Sevens Intact: Yes Simple Calculations Intact: Yes - Abstraction Proverb Interpretation: Intact Judgement: Intact - Insight Insight: Intact - Impulse Control Impulse Control: Good Control - Suicidal Ideation Suicidal Ideation: No - Homicidal Ideation Homicidal Ideation: No Assessment/Plan 1) Seroquel 25 mg po bid. 2) Trazadone 150 mg po hs 3) No need to start Carlisle or otherv Mood Stabilizers while in the Hospital. will follw with OP Psych. Patient is stable on above Combination at this time and does not want to change currant Psych meds.
--- NOTE | 2019-12-23 19:04 | PN ---
Teaching Attending Note Name of Resident: Alejandra Barrett ATTENDING PHYSICIAN STATEMENT I saw and evaluated the patient. I reviewed the resident's note and discussed the case with the resident. I agree with the resident's findings and plan as documented. SUBJECTIVE: Patient continues to be on VM OBJECTIVE: Vital Signs Temperature 97.9 F 12/23/19 17:00 Pulse Rate 106 H 12/23/19 17:00 Respiratory Rate 20 12/23/19 17:00 Blood Pressure 121/71 12/23/19 17:00 O2 Sat by Pulse Oximetry (%) 92 L 12/23/19 16:57 PE: per resident's note CBCD WBC 12.3 K/mm3 (4.0-10.0) H 12/23/19 06:04 RBC 2.94 M/mm3 (4.00-5.60) L 12/23/19 06:04 Hgb 9.5 GM/dL (11.7-16.9) L 12/23/19 06:04 Hct 29.4 % (35.4-49) L 12/23/19 06:04 MCV 99.9 fl (80-96) H 12/23/19 06:04 MCHC 32.4 g/dl (32.0-35.9) 12/23/19 06:04 RDW 16.7 % (11.9-15.9) H 12/23/19 06:04 Plt Count 274 K/MM3 (134-434) 12/23/19 06:04 MPV 9.4 fl (7.5-11.1) 12/23/19 06:04 CMP Sodium 140 mmol/L (136-145) 12/23/19 06:04 Potassium 4.2 mmol/L (3.5-5.1) 12/23/19 06:04 Chloride 106 mmol/L (98-107) 12/23/19 06:04 Carbon Dioxide 23 mmol/L (21-32) 12/23/19 06:04 Anion Gap 11 MMOL/L (8-16) 12/23/19 06:04 BUN 15.5 mg/dL (7-18) 12/23/19 06:04 Creatinine 1.2 mg/dL (0.55-1.3) 12/23/19 06:04 Random Glucose 110 mg/dL (74-106) H 12/23/19 06:04 Calcium 8.6 mg/dL (8.5-10.1) 12/23/19 06:04 Total Bilirubin 1.4 mg/dL (0.2-1) H 12/23/19 06:04 AST 15 U/L (15-37) 12/23/19 06:04 ALT 18 U/L (13-61) 12/23/19 06:04 Alkaline Phosphatase 54 U/L (45-117) 12/23/19 06:04 Total Protein 6.7 g/dl (6.4-8.2) 12/23/19 06:04 Albumin 3.2 g/dl (3.4-5.0) L 12/23/19 06:04 CARDIAC ENZYMES Creatine Kinase 256 U/L (26-308) 12/22/19 05:35 Troponin I < 0.02 ng/ml (0.00-0.05) 12/22/19 05:35 Current Medications Generic Name Dose Route Start Last Admin Trade Name [place] PRN Reason Stop Dose Admin Acetaminophen 650 mg 12/22/19 01:50 12/22/19 03:02 Tylenol - PO 650 mg Q6H PRN Administration FEVER Ascorbic Acid 500 mg 12/22/19 10:00 12/23/19 09:59 Vitamin C - PO 500 mg BID PAULETTE Administration Budesonide/Formoterol Fumarate 2 puff 12/22/19 13:00 12/23/19 09:59 Symbicort 160/4.5mcg - IH 2 puff BID PAULETTE Administration Cholecalciferol 2,000 unit 12/22/19 10:00 12/23/19 09:59 Vitamin D3 - PO 2,000 unit DAILY PAULETTE Administration Enoxaparin Sodium 40 mg 12/22/19 22:00 12/23/19 09:58 Lovenox - SQ 40 mg BID PAULETTE Administration Doxycycline Hyclate 100 mg/ 100 mls @ 100 mls/hr 12/22/19 10:00 12/23/19 09:59 Dextrose IVPB 100 mls/hr BID PAULETTE Administration Ceftriaxone Sodium 1 gm/ 50 mls @ 100 mls/hr 12/22/19 10:00 12/23/19 12:40 Sodium Chloride IVPB 100 mls/hr DAILY PAULETTE Administration Protocol Insulin Aspart 1 vial 12/22/19 07:00 12/23/19 17:03 Novolog Vial Sliding Scale - SQ Not Given ACHS PAULETTE Protocol Methylprednisolone Sodium Succinate 60 mg 12/23/19 22:00 Solu-Medrol - IVPUSH Q12H PAULETTE Pantoprazole Sodium 40 mg 12/22/19 10:00 12/23/19 09:59 Protonix - PO 40 mg DAILY PAULETTE Administration Pregabalin 150 mg 12/22/19 10:00 12/23/19 09:58 Lyrica - PO 150 mg BID PAULETTE Administration Quetiapine Fumarate 25 mg 12/23/19 22:00 Seroquel - PO BID PAULETTE Trazodone HCl 150 mg 12/22/19 01:39 12/22/19 21:07 Desyrel - PO 150 mg HS PAULETTE Administration Zinc Sulfate 220 mg 12/22/19 10:00 12/23/19 09:59 Orazinc - PO 220 mg BID PAULETTE Administration Home Medications Medication Instructions Recorded Trazodone HCl 150 mg PO HS #30 tablet 05/12/19 Pregabalin [Lyrica -] 150 mg PO BID 12/21/19 Laboratory Tests 12/21/19 12/21/19 12/21/19 14:45 14:45 14:45 WBC 11.3 H Lymphocytes % 16.3 D ESR 33 H INR 1.20 H Fibrinogen D-Dimer 520 H Random Glucose Hemoglobin A1c % Iron TIBC Iron Saturation Unsaturated IBC Ferritin Total Bilirubin Direct Bilirubin LD Total C-Reactive Protein COVID-19 (JAZMIN) 12/21/19 12/22/19 12/22/19 18:45 05:35 05:35 WBC 8.4 Lymphocytes % 6.9 L D ESR INR Fibrinogen D-Dimer Random Glucose Hemoglobin A1c % Iron TIBC Iron Saturation Unsaturated IBC Ferritin Total Bilirubin 1.6 H Direct Bilirubin 0.3 H LD Total C-Reactive Protein COVID-19 (JAZMIN) Not detected 12/22/19 12/22/19 12/22/19 05:35 05:35 05:35 WBC Lymphocytes % ESR 54 H INR Fibrinogen D-Dimer 362 Random Glucose Hemoglobin A1c % Iron 35 L TIBC 305 Iron Saturation 11 L Unsaturated IBC 270 Ferritin Total Bilirubin Direct Bilirubin LD Total C-Reactive Protein COVID-19 (JAZMIN) 12/22/19 12/23/19 12/23/19 05:35 06:04 06:04 WBC Lymphocytes % ESR INR Fibrinogen > 500.0 H D-Dimer 418 Random Glucose 110 H Hemoglobin A1c % 5.6 Iron TIBC Iron Saturation Unsaturated IBC Ferritin 294.8 Total Bilirubin 1.4 H Direct Bilirubin LD Total 279 H C-Reactive Protein 7.9 H COVID-19 (JAZMIN) 12/23/19 06:04 WBC 12.3 H Lymphocytes % 14.7 D ESR INR Fibrinogen D-Dimer Random Glucose Hemoglobin A1c % Iron TIBC Iron Saturation Unsaturated IBC Ferritin Total Bilirubin Direct Bilirubin LD Total C-Reactive Protein COVID-19 (JAZMIN) CT of the chest: BL groundglass pulmoanry infiltrates are noted suspecious for covid 19 pneumonitis, trace bl pleural effusions are seen, no PE ASSESSMENT AND PLAN: This patient is a 49yom with PMHx of pre-diabetes, bipolar disorder, peripheral neuropathy, was admitted for acute hypoxic respiratory failure CT was done reported highly suspecious for COVID 19 pneumonitis #Acute Hypoxic Respiratory failure most likely due to COVID19 Pneumonitis, even though the test is negative, will repeat the covid test, High flow-->VM #mild JANNA : creatinine 1.2 #Normocytic mild Anemia will monitor, will do b12/Fa/to be ordered, iron studies #Peripheral Neuropathy: continue lyrica home dose #Bipolar Disorder: as per psychiatrist : to start on Seroquel 25 mg po bid and Trazadone 150 mg po hs follow daily marker , on vit c/zinc/vit D DVT px: lovnox bid
[2019-12-23] MEDS ORDERED: QUEtiapine FUMARATE 25 MG TABLET PO SCH (22:00)
[2019-12-23] MEDS: traZODone HCL 50 MG TABLET (FP) PO SCH (22:42)
[2019-12-23] MEDS: QUEtiapine FUMARATE 25 MG TABLET PO SCH (22:42)
[2019-12-23] MEDS: methylPREDNISolone NA SUCC 40 MG/1 ML VIAL IVPUSH SCH (22:43)
[2019-12-24] MEDS: INSULIN SLIDING SCALE (NOVOLOG) 1 VIAL SQ SCH ×4 (06:48→23:13)
[2019-12-24 07:37] LABS: BASO % 0.1 % (0-2.0); EOS % 0.1 % (0-4.5); HEMATOCRIT 28.9 % (35.4-49); HEMOGLOBIN 9.6 GM/dL (11.7-16.9); LYMPH % 6.1 % (8-40); MCH 33.3 pg (25.7-33.7); MCHC 33.3 g/dl (32.0-35.9); MEAN CELL VOLUME 99.9 fl (80-96); MEAN PLT VOLUME 9.1 fl (7.5-11.1); MONO % 4.7 % (3.8-10.2); PLATELET COUNT 304 K/MM3 (134-434); RBC 2.89 M/mm3 (4.00-5.60); RDW 16.6 % (11.9-15.9); WHITE BLOOD COUNT 9.2 K/mm3 (4.0-10.0)
[2019-12-24 08:07] LABS: ALBUMIN 3.2 g/dl (3.4-5.0); BILIRUBIN,TOTAL 0.8 mg/dL (0.2-1); BLOOD UREA NITROGEN 19.1 mg/dL (7-18); CALCIUM 8.8 mg/dL (8.5-10.1); CREATININE 1.2 mg/dL (0.55-1.3); POTASSIUM 4.7 mmol/L (3.5-5.1); TOT PROT 6.6 g/dl (6.4-8.2)
[2019-12-24] MEDS ORDERED: DOXYCYCLINE HYCLATE 100 MG VIAL ONE ×2 (09:42→20:35)
[2019-12-24] MEDS ORDERED: DEXTROSE 5%-WATER 100 ML IVPB ONE ×2 (09:42→20:36)
[2019-12-24] MEDS ORDERED: cefTRIAXone SODIUM 1 GM VIAL ONE (09:42)
[2019-12-24] MEDS ORDERED: SODIUM CHLORIDE 50 ML IVPB ONE (09:43)
[2019-12-24] MEDS: ENOXAPARIN NA (PORCINE) 40 MG/0.4 ML DISP.SYRIN SQ SCH ×2 (09:45→21:16)
[2019-12-24] MEDS: BUDESONIDE/FORMETEROL FUMARATE 160/4.5 mcg INHALER IH SCH ×2 (09:46→21:19)
[2019-12-24] MEDS: PREGABALIN 75 MG CAPSULE PO SCH ×2 (09:46→21:18)
[2019-12-24] MEDS: ZINC SULFATE 220 MG CAPSULE (FP) PO SCH ×2 (09:46→21:18)
[2019-12-24] MEDS: ASCORBIC ACID 500 MG TABLET (FP) PO SCH ×2 (10:28→21:18)
[2019-12-24] MEDS: CHOLECALCIFEROL (VIT D3) 1,000 UNIT (25 MCG) TABLET PO SCH (10:33)
--- NOTE | 2019-12-24 10:39 | PN ---
Progress Note, Physician History of Present Illness: PULMONARY ALERT,COMFORTABLE ON NASAL O2 SATURATING WELL,LESS COUGH. COVID PCR -NEGATIVE. INFLAMMATORY MARKERS IMPROVING - Current Medication List Current Medications: Active Medications Acetaminophen (Tylenol -) 650 mg PO Q6H PRN PRN Reason: FEVER Last Admin: 12/22/19 03:02 Dose: 650 mg Documented by: Ascorbic Acid (Vitamin C -) 500 mg PO BID [facility] Last Admin: 12/23/19 22:42 Dose: 500 mg Documented by: Budesonide/Formoterol Fumarate (Symbicort 160/4.5mcg -) 2 puff IH BID [facility] Last Admin: 12/23/19 22:44 Dose: 2 puff Documented by: Cholecalciferol (Vitamin D3 -) 2,000 unit PO DAILY [facility] Last Admin: 12/23/19 09:59 Dose: 2,000 unit Documented by: Enoxaparin Sodium (Lovenox -) 40 mg SQ BID [facility] Last Admin: 12/23/19 22:43 Dose: 40 mg Documented by: Doxycycline Hyclate 100 mg/ (Dextrose) 100 mls @ 100 mls/hr IVPB BID [facility] Last Admin: 12/23/19 22:44 Dose: 100 mls/hr Documented by: Ceftriaxone Sodium 1 gm/ (Sodium Chloride) 50 mls @ 100 mls/hr IVPB DAILY [facility]; Protocol Last Admin: 12/23/19 12:40 Dose: 100 mls/hr Documented by: Insulin Aspart (Novolog Vial Sliding Scale -) 1 vial SQ ACHS [facility]; Protocol Last Admin: 12/24/19 06:48 Dose: 2 units Documented by: Methylprednisolone Sodium Succinate (Solu-Medrol -) 60 mg IVPUSH Q12H [facility] Last Admin: 12/23/19 22:43 Dose: 60 mg Documented by: Pantoprazole Sodium (Protonix -) 40 mg PO DAILY [facility] Last Admin: 12/23/19 09:59 Dose: 40 mg Documented by: Pregabalin (Lyrica -) 150 mg PO BID [facility] Last Admin: 12/23/19 22:42 Dose: 150 mg Documented by: Quetiapine Fumarate (Seroquel -) 25 mg PO BID [facility] Last Admin: 12/23/19 22:42 Dose: 25 mg Documented by: Trazodone HCl (Desyrel -) 150 mg PO HS [facility] Last Admin: 12/23/19 22:42 Dose: 150 mg Documented by: Zinc Sulfate (Orazinc -) 220 mg PO BID [facility] Last Admin: 12/23/19 22:42 Dose: 220 mg Documented by: - Objective Vital Signs: Vital Signs Temperature 97.6 F 12/24/19 06:00 Pulse Rate 63 12/24/19 08:19 Respiratory Rate 20 12/24/19 06:00 Blood Pressure 118/49 L 12/24/19 06:00 O2 Sat by Pulse Oximetry (%) 96 12/24/19 08:19 Constitutional: Yes: Well Nourished, Calm Eyes: Yes: WNL HENT: Yes: WNL Neck: Yes: WNL Cardiovascular: Yes: Regular Rate and Rhythm, S1, S2 Respiratory: Yes: Diminished, Rales (SCATTERED CANDY CRACKLES) Gastrointestinal: Yes: Normal Bowel Sounds, Soft, Abdomen, Obese Extremities: Yes: WNL Edema: No Labs: CBC, BMP 12/24/19 06:30 12/24/19 06:30 INR, PTT INR 1.20 (0.83-1.09) H 12/21/19 14:45 Fibrinogen > 500.0 mg/dL (238-498) H 12/23/19 06:04 Laboratory Tests 12/23/19 12/24/19 12/24/19 06:04 06:30 06:30 Fibrinogen > 500.0 H D-Dimer 400 Ferritin 265.9 LD Total 230 C-Reactive Protein 4.4 H Problem List - Problems (1) Suspected COVID-19 virus infection Code(s): Z20.828 - CONTACT W AND EXPOSURE TO OTH VIRAL COMMUNICABLE DISEASES (2) Hypoxia Code(s): R09.02 - HYPOXEMIA Assessment/Plan IMP ACUTE HYPOXEMIC RESPIRATORY FAILURE IMPROVING SUSPECTED COVID 19 PNEUMONIA PRE DM BIPOLAR PERIPHERAL NEUROPATHY GERD PLAN SUPPLEMENTAL O2 INHALED BRONCHODILATORS/STEROIDS MEDROL LOVENOX 40 BID MONITOR LYTES, MONITOR INFLAMMATORY MARKERS F/U CHEST X-RAYS REPAEAT COVID PCR NEGATIVE COVID ANTIBODIES NEGATIVE DR OVERTON Problem List - Problems (1) Suspected COVID-19 virus infection Code(s): Z20.828 - CONTACT W AND EXPOSURE TO OTH VIRAL COMMUNICABLE DISEASES (2) Hypoxia Code(s): R09.02 - HYPOXEMIA
--- NOTE | 2019-12-24 11:16 | PN ---
Progress Note, Physician History of Present Illness: still with breathing issues but starting to feel better - Current Medication List Current Medications: Active Medications Acetaminophen (Tylenol -) 650 mg PO Q6H PRN PRN Reason: FEVER Last Admin: 12/22/19 03:02 Dose: 650 mg Documented by: Ascorbic Acid (Vitamin C -) 500 mg PO BID [facility] Last Admin: 12/23/19 22:42 Dose: 500 mg Documented by: Budesonide/Formoterol Fumarate (Symbicort 160/4.5mcg -) 2 puff IH BID [facility] Last Admin: 12/23/19 22:44 Dose: 2 puff Documented by: Cholecalciferol (Vitamin D3 -) 2,000 unit PO DAILY [facility] Last Admin: 12/23/19 09:59 Dose: 2,000 unit Documented by: Enoxaparin Sodium (Lovenox -) 40 mg SQ BID [facility] Last Admin: 12/23/19 22:43 Dose: 40 mg Documented by: Doxycycline Hyclate 100 mg/ (Dextrose) 100 mls @ 100 mls/hr IVPB BID [facility] Last Admin: 12/23/19 22:44 Dose: 100 mls/hr Documented by: Ceftriaxone Sodium 1 gm/ (Sodium Chloride) 50 mls @ 100 mls/hr IVPB DAILY [facility]; Protocol Last Admin: 12/23/19 12:40 Dose: 100 mls/hr Documented by: Insulin Aspart (Novolog Vial Sliding Scale -) 1 vial SQ ACHS [facility]; Protocol Last Admin: 12/24/19 06:48 Dose: 2 units Documented by: Methylprednisolone Sodium Succinate (Solu-Medrol -) 60 mg IVPUSH Q12H [facility] Last Admin: 12/23/19 22:43 Dose: 60 mg Documented by: Pantoprazole Sodium (Protonix -) 40 mg PO DAILY [facility] Last Admin: 12/23/19 09:59 Dose: 40 mg Documented by: Pregabalin (Lyrica -) 150 mg PO BID [facility] Last Admin: 12/23/19 22:42 Dose: 150 mg Documented by: Quetiapine Fumarate (Seroquel -) 25 mg PO BID [facility] Last Admin: 12/23/19 22:42 Dose: 25 mg Documented by: Trazodone HCl (Desyrel -) 150 mg PO HS [facility] Last Admin: 12/23/19 22:42 Dose: 150 mg Documented by: Zinc Sulfate (Orazinc -) 220 mg PO BID [facility] Last Admin: 12/23/19 22:42 Dose: 220 mg Documented by: - Objective Vital Signs: Vital Signs Temperature 97.6 F 12/24/19 06:00 Pulse Rate 63 12/24/19 08:19 Respiratory Rate 20 12/24/19 06:00 Blood Pressure 118/49 L 12/24/19 06:00 O2 Sat by Pulse Oximetry (%) 96 12/24/19 08:19 Constitutional: Yes: Calm, Mild Distress Cardiovascular: Yes: S1, S2 Respiratory: Yes: Regular, CTA Bilaterally, On Nasal O2 Gastrointestinal: Yes: Normal Bowel Sounds, Soft Musculoskeletal: Yes: WNL Extremities: Yes: WNL Neurological: Yes: Alert, Oriented Psychiatric: Yes: Alert, Oriented Labs: CBC, BMP 12/24/19 06:30 12/24/19 06:30 INR, PTT INR 1.20 (0.83-1.09) H 12/21/19 14:45 Fibrinogen > 500.0 mg/dL (238-498) H 12/23/19 06:04 Assessment/Plan 49 yo M with PMH of pre-diabetes, bipolar disorder, peripheral neuropathy, and chronic diarrhea being admitted for acute hypoxic respiratory failure likely 2/2 to COVID 19 pneumonitis; also with JANNA. #Acute Hypoxic RF 2/2 to COVID19 Pneumonitis #JANNA #Anemia (likely Anemia of Chronic Disease given normal MVC; Hb 10.9) #Pre-Diabetes Peripheral Neuropathy #Bipolar Disorder continue resp support abx await for results rest as per the team
[2019-12-24] MEDS: QUEtiapine FUMARATE 25 MG TABLET PO SCH ×2 (11:46→21:18)
[2019-12-24] MEDS: methylPREDNISolone NA SUCC 40 MG/1 ML VIAL IVPUSH SCH ×2 (11:46→21:17)
[2019-12-24] MEDS: CEFTRIAXONE 1 GM in SODIUM CHLORIDE 50 ML IVPB SCH (11:46)
[2019-12-24] MEDS: PANTOPRAZOLE 40 MG TABLET PO SCH (11:46)
--- NOTE | 2019-12-24 11:56 | PN ---
Physical Exam: SUBJECTIVE: Patient seen and examined, was sleeping but easily aroused. In terms of his lungs, he is feeling about the same compared to yesterday. In terms of his anxiety, he feels much better due to the quetiapine. He also told me that he was seen by psychiatry yesterday evening around 6pm. He was very grateful for the psychiatric attention and the medication. Per the telemetry nursing aid, he has been satting between 90-95% on the ventimask. OTc esterday 445. OTc today 450 OBJECTIVE: Vital Signs Period Temp Pulse Resp BP Sys/Moreno Pulse Ox Last 24 Hr 97.6 F-98 F 63-106 20-20 118-129/49-78 87-97 Did not perform physical exam as the repeat COVID test was pending. Patient was sleeping comfortably and was woken up for a short conversation. He appeared unchanged from previous days. Laboratory Results - last 24 hr 12/23/19 12/23/19 12/23/19 12:32 14:50 16:37 WBC RBC Hgb Hct MCV MCH MCHC RDW Plt Count MPV Absolute Neuts (auto) Neutrophils % Lymphocytes % Monocytes % Eosinophils % Basophils % Nucleated RBC % D-Dimer Sodium Potassium Chloride Carbon Dioxide Anion Gap BUN Creatinine Est GFR (CKD-EPI)AfAm Est GFR (CKD-EPI)NonAf POC Glucometer 120 135 Random Glucose Calcium Ferritin Total Bilirubin AST ALT Alkaline Phosphatase LD Total C-Reactive Protein Total Protein Albumin Vitamin B12 Serum Folate TSH COVID-19 ([facility]ZMIN) Not detected 12/23/19 12/24/19 12/24/19 22:49 06:30 06:30 WBC RBC Hgb Hct MCV MCH MCHC RDW Plt Count MPV Absolute Neuts (auto) Neutrophils % Lymphocytes % Monocytes % Eosinophils % Basophils % Nucleated RBC % D-Dimer 400 Sodium 139 Potassium 4.7 Chloride 107 Carbon Dioxide 23 Anion Gap 9 BUN 19.1 H Creatinine 1.2 Est GFR (CKD-EPI)AfAm 80.66 Est GFR (CKD-EPI)NonAf 69.59 POC Glucometer 99 Random Glucose 167 H Calcium 8.8 Ferritin 265.9 Total Bilirubin 0.8 AST 9 L ALT 21 Alkaline Phosphatase 53 LD Total 230 C-Reactive Protein 4.4 H Total Protein 6.6 Albumin 3.2 L Vitamin B12 Serum Folate 14 TSH 0.10 L COVID-19 ([facility]ZMIN) 12/24/19 12/24/19 12/24/19 06:30 06:30 06:45 WBC 9.2 RBC 2.89 L Hgb 9.6 L Hct 28.9 L MCV 99.9 H MCH 33.3 MCHC 33.3 RDW 16.6 H Plt Count 304 MPV 9.1 Absolute Neuts (auto) 8.2 H Neutrophils % 89.0 H Lymphocytes % 6.1 L D Monocytes % 4.7 Eosinophils % 0.1 Basophils % 0.1 Nucleated RBC % 0 D-Dimer Sodium Potassium Chloride Carbon Dioxide Anion Gap BUN Creatinine Est GFR (CKD-EPI)AfAm Est GFR (CKD-EPI)NonAf POC Glucometer 179 Random Glucose Calcium Ferritin Total Bilirubin AST ALT Alkaline Phosphatase LD Total C-Reactive Protein Total Protein Albumin Vitamin B12 954 Serum Folate TSH COVID-19 ([facility]) Active Medications Generic Name Dose Route Start Last Admin Trade Name Freq PRN Reason Stop Dose Admin Acetaminophen 650 mg 12/22/19 01:50 12/22/19 03:02 Tylenol - PO 650 mg Q6H PRN Administration FEVER Ascorbic Acid 500 mg 12/22/19 10:00 12/23/19 22:42 Vitamin C - PO 500 mg BID [facility] Administration Budesonide/Formoterol Fumarate 2 puff 12/22/19 13:00 12/23/19 22:44 Symbicort 160/4.5mcg - IH 2 puff BID [facility] Administration Cholecalciferol 2,000 unit 12/22/19 10:00 12/23/19 09:59 Vitamin D3 - PO 2,000 unit DAILY [facility] Administration Enoxaparin Sodium 40 mg 12/22/19 22:00 12/23/19 22:43 Lovenox - SQ 40 mg BID [facility] Administration Doxycycline Hyclate 100 mg/ 100 mls @ 100 mls/hr 12/22/19 10:00 12/23/19 22:44 Dextrose IVPB 100 mls/hr BID [facility] Administration Ceftriaxone Sodium 1 gm/ 50 mls @ 100 mls/hr 12/22/19 10:00 12/23/19 12:40 Sodium Chloride IVPB 100 mls/hr DAILY [facility] Administration Protocol Insulin Aspart 1 vial 12/22/19 07:00 12/24/19 06:48 Novolog Vial Sliding Scale - SQ 2 units ACHS [facility] Administration Protocol Methylprednisolone Sodium Succinate 60 mg 12/23/19 22:00 12/23/19 22:43 Solu-Medrol - IVPUSH 60 mg Q12H [facility] Administration Pantoprazole Sodium 40 mg 12/22/19 10:00 12/23/19 09:59 Protonix - PO 40 mg DAILY [facility] Administration Pregabalin 150 mg 12/22/19 10:00 12/23/19 22:42 Lyrica - PO 150 mg BID [facility] Administration Quetiapine Fumarate 25 mg 12/23/19 22:00 12/23/19 22:42 Seroquel - PO 25 mg BID [facility] Administration Trazodone HCl 150 mg 12/22/19 01:39 12/23/19 22:42 Desyrel - PO 150 mg HS [facility] Administration Zinc Sulfate 220 mg 12/22/19 10:00 12/23/19 22:42 Orazinc - PO 220 mg BID [facility] Administration ASSESSMENT/PLAN: 49yo M with PMHx of pre-diabetes, bipolar disorder, peripheral neuropathy, smoking hx (stopped 5 years ago), and chronic diarrhea being admitted for acute hypoxic respiratory failure likely 2/2 to COVID 19 pneumonitis (PCR ab not detected x2); also with JANNA. #Acute Hypoxic RF 2/2 to COVID19 Pneumonitis less likely bacterial CAP CTA showing bilateral GGOs, negative for PE - initial and repeat COVID serologies were not detected - SpO2 goal >93% - ID consulted: Dr. Oreilly 12/22/19 considering initiation of remdesivir - pulm consulted: Dr. Acosta 12/22/19 considering convalescent plasma transfusion - Vitamin C/D; Zinc - doxy 100 bid for anti-inflammtory properties - 6 mg IV push dexamethasone daily x 10 days, as per COVID 19 NIH guidelines - protonix PO 40 daily for GI ppx while on steroids - tylenol PRN for fever - 1 dose of 400 mg plaquenil received - ?continue? QTc 445 - continue trending inflammatory markers (CRP, LDH, ferritin, D-dimer) - troponins, CK ordered to eval for myocarditis, as it has been seen with COVID - continue attempting ABGs despite patient fear of needles - f/u D-dimer; if > 2000, will give additional lovenox dose, as per day team (already received 60 mg lovenox in ED) - UA, legionella, strep, blood cx ordered - blood cx NGTD - CXR in the AM - continue monitoring extent of pneumonitis #JANNA - resolving Likely 2/2 to COVID 19 Cr stable at 1.2 (baseline?) - UA, Urine lytes unremarkable - avoid nephrotoxic agents - d/c's fluids - monitor Cr #Anemia (likely Anemia of Chronic Disease given normal MVC) - Hgb initially downtrending, now stable at 9.6 - iron studies showing decreased iron 35 but TIBC and ferritin WNL - continue trending daily - transfuse if Hb < 7 - no acute signs of bleeding at this time #Pre-Diabetes Pt likely to be hyperglycemic on steroids, A1C 5.6 - BGM ACHS ISS Peripheral Neuropathy - continue home lyrica 150 bid #Bipolar Disorder - continue home trazadone 150 qhs - patient stated that he normally takes quetiapine 400 - started quetiapine 25 at nighttime and awaiting psych recs - monitor daily QTc - seen by psych consult - appreciated recs: continue current regimen with trazodone and quetiapine #PPX - DVT: enoxaparin - GI: pantoprazole #FEN -F - no standing fluids -E - monitor lytes; replete prn -N - low Na, diabetic diet #Dispo - admit to med-surg Visit type - Emergency Visit Emergency Visit: Yes ED Registration Date: 12/21/19 Care time: The patient presented to the Emergency Department on the above date and was hospitalized for further evaluation of their emergent condition. - New Patient This patient is new to me today: No - Critical Care Critical Care patient: No ATTENDING PHYSICIAN STATEMENT I saw and evaluated the patient. I reviewed the resident's note and discussed the case with the resident. I agree with the resident's findings and plan as documented. SUBJECTIVE: OBJECTIVE: ASSESSMENT AND PLAN:
[2019-12-24] MEDS: DOXYCYCLINE INJECTION 100 MG in DEXTROSE 5%-WATER 100 ML IVPB SCH ×2 (12:28→21:17)
--- NOTE | 2019-12-24 18:21 | PN ---
Teaching Attending Note Name of Resident: Alejandra Barrett ATTENDING PHYSICIAN STATEMENT I saw and evaluated the patient. I reviewed the resident's note and discussed the case with the resident. I agree with the resident's findings and plan as documented. SUBJECTIVE: Patient is on NC now, breathing better OBJECTIVE: Vital Signs Temperature 98.7 F 12/24/19 14:00 Pulse Rate 76 12/24/19 15:52 Respiratory Rate 20 12/24/19 14:00 Blood Pressure 141/50 L 12/24/19 14:00 O2 Sat by Pulse Oximetry (%) 93 L 12/24/19 15:52 PE: per resident's note CBCD WBC 9.2 K/mm3 (4.0-10.0) 12/24/19 06:30 RBC 2.89 M/mm3 (4.00-5.60) L 12/24/19 06:30 Hgb 9.6 GM/dL (11.7-16.9) L 12/24/19 06:30 Hct 28.9 % (35.4-49) L 12/24/19 06:30 MCV 99.9 fl (80-96) H 12/24/19 06:30 MCHC 33.3 g/dl (32.0-35.9) 12/24/19 06:30 RDW 16.6 % (11.9-15.9) H 12/24/19 06:30 Plt Count 304 K/MM3 (134-434) 12/24/19 06:30 MPV 9.1 fl (7.5-11.1) 12/24/19 06:30 CMP Sodium 139 mmol/L (136-145) 12/24/19 06:30 Potassium 4.7 mmol/L (3.5-5.1) 12/24/19 06:30 Chloride 107 mmol/L (98-107) 12/24/19 06:30 Carbon Dioxide 23 mmol/L (21-32) 12/24/19 06:30 Anion Gap 9 MMOL/L (8-16) 12/24/19 06:30 BUN 19.1 mg/dL (7-18) H 12/24/19 06:30 Creatinine 1.2 mg/dL (0.55-1.3) 12/24/19 06:30 Random Glucose 167 mg/dL (74-106) H 12/24/19 06:30 Calcium 8.8 mg/dL (8.5-10.1) 12/24/19 06:30 Total Bilirubin 0.8 mg/dL (0.2-1) 12/24/19 06:30 AST 9 U/L (15-37) L 12/24/19 06:30 ALT 21 U/L (13-61) 12/24/19 06:30 Alkaline Phosphatase 53 U/L (45-117) 12/24/19 06:30 Total Protein 6.6 g/dl (6.4-8.2) 12/24/19 06:30 Albumin 3.2 g/dl (3.4-5.0) L 12/24/19 06:30 CARDIAC ENZYMES Creatine Kinase 256 U/L (26-308) 12/22/19 05:35 Troponin I < 0.02 ng/ml (0.00-0.05) 12/22/19 05:35 Current Medications Generic Name Dose Route Start Last Admin Trade Name [place] PRN Reason Stop Dose Admin Acetaminophen 650 mg 12/22/19 01:50 12/22/19 03:02 Tylenol - PO 650 mg Q6H PRN Administration FEVER Ascorbic Acid 500 mg 12/22/19 10:00 12/24/19 10:28 Vitamin C - PO 500 mg BID [facility] Administration Budesonide/Formoterol Fumarate 2 puff 12/22/19 13:00 12/24/19 09:46 Symbicort 160/4.5mcg - IH 2 puff BID [facility] Administration Cholecalciferol 2,000 unit 12/22/19 10:00 12/24/19 10:33 Vitamin D3 - PO 2,000 unit DAILY [facility] Administration Enoxaparin Sodium 40 mg 12/22/19 22:00 12/24/19 09:45 Lovenox - SQ 40 mg BID [facility] Administration Doxycycline Hyclate 100 mg/ 100 mls @ 100 mls/hr 12/22/19 10:00 12/24/19 12:28 Dextrose IVPB 100 mls/hr BID [facility] Administration Ceftriaxone Sodium 1 gm/ 50 mls @ 100 mls/hr 12/22/19 10:00 12/24/19 11:46 Sodium Chloride IVPB 100 mls/hr DAILY [facility] Administration Protocol Insulin Aspart 1 vial 12/22/19 07:00 12/24/19 11:33 Novolog Vial Sliding Scale - SQ Not Given ACHS [facility] Protocol Methylprednisolone Sodium Succinate 60 mg 12/23/19 22:00 12/24/19 11:46 Solu-Medrol - IVPUSH 60 mg Q12H [facility] Administration Pantoprazole Sodium 40 mg 12/22/19 10:00 12/24/19 11:46 Protonix - PO 40 mg DAILY [facility] Administration Pregabalin 150 mg 12/22/19 10:00 12/24/19 09:46 Lyrica - PO 150 mg BID [facility] Administration Quetiapine Fumarate 25 mg 12/23/19 22:00 12/24/19 11:46 Seroquel - PO 25 mg BID [facility] Administration Trazodone HCl 150 mg 12/22/19 01:39 12/23/19 22:42 Desyrel - PO 150 mg HS [facility] Administration Zinc Sulfate 220 mg 12/22/19 10:00 12/24/19 09:46 Orazinc - PO 220 mg BID [facility] Administration Home Medications Medication Instructions Recorded Trazodone HCl 150 mg PO HS #30 tablet 05/12/19 Pregabalin [Lyrica -] 150 mg PO BID 12/21/19 Laboratory Tests 12/23/19 12/23/19 12/23/19 06:04 06:04 06:04 WBC 12.3 H Lymphocytes % 14.7 D Fibrinogen > 500.0 H D-Dimer 418 Ferritin 294.8 Total Bilirubin 1.4 H LD Total 279 H C-Reactive Protein 7.9 H 12/24/19 12/24/19 12/24/19 06:30 06:30 06:30 WBC Lymphocytes % 6.1 L D Fibrinogen D-Dimer 400 Ferritin 265.9 Total Bilirubin LD Total C-Reactive Protein 4.4 H 12/25/19 12/25/19 06:47 06:47 WBC Lymphocytes % 8.1 D Fibrinogen D-Dimer 300 Ferritin Total Bilirubin LD Total C-Reactive Protein Microbiology 12/22/19 13:00 Blood - Peripheral Venous Blood Culture - Preliminary NO GROWTH OBTAINED AFTER 48 HOURS, INCUBATION TO CONTINUE FOR 3 DAYS. 12/22/19 13:00 Blood - Peripheral Venous Blood Culture - Preliminary NO GROWTH OBTAINED AFTER 48 HOURS, INCUBATION TO CONTINUE FOR [address] of the chest: BL groundglass pulmoanry infiltrates are noted suspecious for covid 19 pneumonitis, trace bl pleural effusions are seen, no PE ASSESSMENT AND PLAN: This patient is a 49yom with PMHx of pre-diabetes, bipolar disorder, peripheral neuropathy, was admitted for acute hypoxic respiratory failure CT was done reported highly suspecious for COVID 19 pneumonitis #Acute Hypoxic Respiratory failure most likely due to COVID19 Pneumonitis, even though the test is negative, and the repeat is negative as well, but highly suspecious of covid. CRP is trending down. On IV rocephin and doxy ,follow daily marker , on vit c/zinc/vit D, on Solu medrol , Lovenox, steroid inhaler. Pulm and ID on the case. #mild JANNA 1.2 today #Normocytic mild Anemia will monitor, will do b12/Fa/to be ordered, iron studies as above #Peripheral Neuropathy: continue Lyrica home dose #Bipolar Disorder: as per psychiatrist : to start on Seroquel 25 mg po bid and Trazadone 150 mg po hs DVT px: lovenox bid
[2019-12-24] MEDS: ACETAMINOPHEN 325 MG TABLET (FP) PO PRN (20:25)
[2019-12-24] MEDS: traZODone HCL 50 MG TABLET (FP) PO SCH (21:17)
[2019-12-25 06:29] LABS: VENOUS BASE EXCESS -0.6 mmol/L (-2-2); VENOUS O2 SATURATION 58.5 % (70-80); VENOUS PCO2 43.2 mmHg (38-52); VENOUS PH 7.375 (7.310-7.410)
[2019-12-25] MEDS: INSULIN SLIDING SCALE (NOVOLOG) 1 VIAL SQ SCH ×3 (06:32→17:23)
[2019-12-25 08:20] LABS: BASO % 0.3 % (0-2.0); HEMATOCRIT 30.3 % (35.4-49); HEMOGLOBIN 10.1 GM/dL (11.7-16.9); LYMPH % 8.1 % (8-40); MCH 33.2 pg (25.7-33.7); MCHC 33.2 g/dl (32.0-35.9); MEAN CELL VOLUME 99.9 fl (80-96); MEAN PLT VOLUME 9.6 fl (7.5-11.1); MONO % 9.9 % (3.8-10.2); NEUT % 81.7 % (42.8-82.8); PLATELET COUNT 302 K/MM3 (134-434); RBC 3.03 M/mm3 (4.00-5.60); RDW 16.9 % (11.9-15.9); WHITE BLOOD COUNT 12.9 K/mm3 (4.0-10.0)
[2019-12-25 08:51] LABS: ALBUMIN 3.2 g/dl (3.4-5.0); BILIRUBIN,TOTAL 0.6 mg/dL (0.2-1); BLOOD UREA NITROGEN 13.9 mg/dL (7-18); CALCIUM 8.7 mg/dL (8.5-10.1); MAGNESIUM 2.3 mg/dL (1.8-2.4); POTASSIUM 4.2 mmol/L (3.5-5.1); TOT PROT 6.7 g/dl (6.4-8.2)
[2019-12-25 08:59] LABS: CREATININE 1.2 mg/dL (0.55-1.3); PHOSPHOROUS 3.6 mg/dL (2.5-4.9)
[2019-12-25] MEDS ORDERED: DOXYCYCLINE HYCLATE 100 MG VIAL ONE (09:19)
[2019-12-25] MEDS ORDERED: cefTRIAXone SODIUM 1 GM VIAL ONE (09:20)
[2019-12-25] MEDS ORDERED: DEXTROSE 5%-WATER 100 ML IVPB ONE (09:20)
[2019-12-25] MEDS ORDERED: SODIUM CHLORIDE 50 ML IVPB ONE (09:20)
[2019-12-25] MEDS: PANTOPRAZOLE 40 MG TABLET PO SCH (09:32)
[2019-12-25] MEDS: QUEtiapine FUMARATE 25 MG TABLET PO SCH ×2 (09:32→22:00)
[2019-12-25] MEDS: ASCORBIC ACID 500 MG TABLET (FP) PO SCH ×2 (09:32→22:00)
[2019-12-25] MEDS: PREGABALIN 75 MG CAPSULE PO SCH ×2 (09:32→22:00)
[2019-12-25] MEDS: ZINC SULFATE 220 MG CAPSULE (FP) PO SCH ×2 (09:32→22:00)
[2019-12-25] MEDS: CHOLECALCIFEROL (VIT D3) 1,000 UNIT (25 MCG) TABLET PO SCH (09:32)
[2019-12-25] MEDS: methylPREDNISolone NA SUCC 40 MG/1 ML VIAL IVPUSH SCH (09:33)
[2019-12-25] MEDS: ENOXAPARIN NA (PORCINE) 40 MG/0.4 ML DISP.SYRIN SQ SCH ×2 (09:33→22:00)
[2019-12-25] MEDS: DOXYCYCLINE INJECTION 100 MG in DEXTROSE 5%-WATER 100 ML IVPB SCH (09:33)
[2019-12-25] MEDS: CEFTRIAXONE 1 GM in SODIUM CHLORIDE 50 ML IVPB SCH (09:33)
[2019-12-25] MEDS: BUDESONIDE/FORMETEROL FUMARATE 160/4.5 mcg INHALER IH SCH (09:33)
--- NOTE | 2019-12-25 12:55 | PN ---
Progress Note (short form) - Note Progress Note: PULMONARY Less short of breath, now on 5L nasal cannula. c/o headache and nonproductive cough. Vital Signs Period Temp Pulse Resp BP Sys/Moreno Pulse Ox Last 24 Hr 98.1 F-98.7 F 69-80 20-20 126-145/50-79 91-97 Gen: less tachypneic at rest Heart: RRR Lung: decreased breath sounds at the bases Abd: soft, nontender Ext: no edema CBC, BMP 12/25/19 06:47 12/25/19 06:47 Active Medications Acetaminophen (Tylenol -) 650 mg PO Q6H PRN PRN Reason: FEVER Last Admin: 12/24/19 20:25 Dose: 650 mg Documented by: Ascorbic Acid (Vitamin C -) 500 mg PO BID [facility] Last Admin: 12/25/19 09:32 Dose: 500 mg Documented by: Budesonide/Formoterol Fumarate (Symbicort 160/4.5mcg -) 2 puff IH BID [facility] Last Admin: 12/25/19 09:33 Dose: 2 puff Documented by: Cholecalciferol (Vitamin D3 -) 2,000 unit PO DAILY [facility] Last Admin: 12/25/19 09:32 Dose: 2,000 unit Documented by: Enoxaparin Sodium (Lovenox -) 40 mg SQ BID [facility] Last Admin: 12/25/19 09:33 Dose: 40 mg Documented by: Doxycycline Hyclate 100 mg/ (Dextrose) 100 mls @ 100 mls/hr IVPB BID [facility] Last Admin: 12/25/19 09:33 Dose: 100 mls/hr Documented by: Ceftriaxone Sodium 1 gm/ (Sodium Chloride) 50 mls @ 100 mls/hr IVPB DAILY [facility]; Protocol Last Admin: 12/25/19 09:33 Dose: 100 mls/hr Documented by: Insulin Aspart (Novolog Vial Sliding Scale -) 1 vial SQ ACHS [facility]; Protocol Last Admin: 12/25/19 12:21 Dose: Not Given Documented by: Methylprednisolone Sodium Succinate (Solu-Medrol -) 60 mg IVPUSH Q12H [facility] Last Admin: 12/25/19 09:33 Dose: 60 mg Documented by: Pantoprazole Sodium (Protonix -) 40 mg PO DAILY [facility] Last Admin: 12/25/19 09:32 Dose: 40 mg Documented by: Pregabalin (Lyrica -) 150 mg PO BID [facility] Last Admin: 12/25/19 09:32 Dose: 150 mg Documented by: Quetiapine Fumarate (Seroquel -) 25 mg PO BID [facility] Last Admin: 12/25/19 09:32 Dose: 25 mg Documented by: Trazodone HCl (Desyrel -) 150 mg PO [facility] Last Admin: 12/24/19 21:17 Dose: 150 mg Documented by: Zinc Sulfate (Orazinc -) 220 mg PO BID [facility] Last Admin: 12/25/19 09:32 Dose: 220 mg Documented by: A/P Acute Hypoxic Respiratory Failure Suspected COVID19 Pneumonia Bipolar Disorder GERD - O2 to keep SpO2 >90% - continue medrol - continue anticoagulation - trend inflammatory markers - continue antibiotics - pulse oximetry monitoring
--- NOTE | 2019-12-25 15:43 | PN ---
Progress Note (short form) - Note Progress Note: Patient is feeling better, on NC 5L 02 Sa02 is 93%, keep above 90% Vital Signs Temperature 98 F 12/25/19 14:10 Pulse Rate 68 12/25/19 14:10 Respiratory Rate 20 12/25/19 14:10 Blood Pressure 136/81 12/25/19 14:10 O2 Sat by Pulse Oximetry (%) 93 L 12/25/19 09:00 GENERAL: The patient is awake, alert, and fully oriented, in no acute distress. HEAD: Normal with no signs of trauma. EYES: PERRL, extraocular movements intact, sclera anicteric, conjunctiva clear. ENT: Ears normal, oropharynx clear without exudates, moist mucous membranes. NECK: Trachea midline, full range of motion, supple. LUNGS: decreased BS at bases, tachypneic . HEART: Regular rate and rhythm, S1, S2 without murmur, rub or gallop. ABDOMEN: Soft, NT,ND, +BS , no guarding, no rebound, no hepatosplenomegaly, no masses. EXTREMITIES: 2+ pulses, warm, well-perfused, no edema. NEUROLOGICAL: Cranial nerves II through XII grossly intact. Normal speech, gait not observed. PSYCH: Normal mood, normal affect. SKIN: Warm, dry, normal turgor, no rashes or lesions noted CBCD WBC 12.9 K/mm3 (4.0-10.0) H 12/25/19 06:47 RBC 3.03 M/mm3 (4.00-5.60) L 12/25/19 06:47 Hgb 10.1 GM/dL (11.7-16.9) L 12/25/19 06:47 Hct 30.3 % (35.4-49) L 12/25/19 06:47 MCV 99.9 fl (80-96) H 12/25/19 06:47 MCHC 33.2 g/dl (32.0-35.9) 12/25/19 06:47 RDW 16.9 % (11.9-15.9) H 12/25/19 06:47 Plt Count 302 K/MM3 (134-434) 12/25/19 06:47 MPV 9.6 fl (7.5-11.1) 12/25/19 06:47 CMP Sodium 137 mmol/L (136-145) 12/25/19 06:47 Potassium 4.2 mmol/L (3.5-5.1) 12/25/19 06:47 Chloride 105 mmol/L (98-107) 12/25/19 06:47 Carbon Dioxide 25 mmol/L (21-32) 12/25/19 06:47 Anion Gap 7 MMOL/L (8-16) L 12/25/19 06:47 BUN 13.9 mg/dL (7-18) 12/25/19 06:47 Creatinine 1.2 mg/dL (0.55-1.3) 12/25/19 06:47 Random Glucose 189 mg/dL (74-106) H 12/25/19 06:47 Calcium 8.7 mg/dL (8.5-10.1) 12/25/19 06:47 Total Bilirubin 0.6 mg/dL (0.2-1) 12/25/19 06:47 AST 12 U/L (15-37) L 12/25/19 06:47 ALT 23 U/L (13-61) 12/25/19 06:47 Alkaline Phosphatase 60 U/L (45-117) 12/25/19 06:47 Total Protein 6.7 g/dl (6.4-8.2) 12/25/19 06:47 Albumin 3.2 g/dl (3.4-5.0) L 12/25/19 06:47 CARDIAC ENZYMES Creatine Kinase 256 U/L (26-308) 12/22/19 05:35 Troponin I < 0.02 ng/ml (0.00-0.05) 12/22/19 05:35 Current Medications Generic Name Dose Route Start Last Admin Trade Name Freq PRN Reason Stop Dose Admin Acetaminophen 650 mg 12/22/19 01:50 12/24/19 20:25 Tylenol - PO 650 mg Q6H PRN Administration FEVER Ascorbic Acid 500 mg 12/22/19 10:00 12/25/19 09:32 Vitamin C - PO 500 mg BID PAULETTE Administration Budesonide/Formoterol Fumarate 2 puff 12/22/19 13:00 12/25/19 09:33 Symbicort 160/4.5mcg - IH 2 puff BID PAULETTE Administration Cholecalciferol 2,000 unit 12/22/19 10:00 12/25/19 09:32 Vitamin D3 - PO 2,000 unit DAILY PAULETTE Administration Enoxaparin Sodium 40 mg 12/22/19 22:00 12/25/19 09:33 Lovenox - SQ 40 mg BID PAULETTE Administration Doxycycline Hyclate 100 mg/ 100 mls @ 100 mls/hr 12/22/19 10:00 12/25/19 09:33 Dextrose IVPB 100 mls/hr BID PAULETTE Administration Ceftriaxone Sodium 1 gm/ 50 mls @ 100 mls/hr 12/22/19 10:00 12/25/19 09:33 Sodium Chloride IVPB 100 mls/hr DAILY PAULETTE Administration Protocol Insulin Aspart 1 vial 12/22/19 07:00 12/25/19 12:21 Novolog Vial Sliding Scale - SQ Not Given ACHS [facility] Protocol Methylprednisolone Sodium Succinate 60 mg 12/23/19 22:00 12/25/19 09:33 Solu-Medrol - IVPUSH 60 mg Q12H PAULETTE Administration Pantoprazole Sodium 40 mg 12/22/19 10:00 12/25/19 09:32 Protonix - PO 40 mg DAILY PAULETTE Administration Pregabalin 150 mg 12/22/19 10:00 12/25/19 09:32 Lyrica - PO 150 mg BID PAULETTE Administration Quetiapine Fumarate 25 mg 12/23/19 22:00 12/25/19 09:32 Seroquel - PO 25 mg BID PAULETTE Administration Trazodone HCl 150 mg 12/22/19 01:39 12/24/19 21:17 Desyrel - PO 150 mg HS PAULETTE Administration Zinc Sulfate 220 mg 12/22/19 10:00 12/25/19 09:32 Orazinc - PO 220 mg BID PAULETTE Administration Home Medications Medication Instructions Recorded Trazodone HCl 150 mg PO HS #30 tablet 05/12/19 Pregabalin [Lyrica -] 150 mg PO BID 12/21/19 Microbiology 12/22/19 13:00 Blood - Peripheral Venous Blood Culture - Preliminary NO GROWTH OBTAINED AFTER 72 HOURS, INCUBATION TO CONTINUE FOR 2 DAYS. 12/22/19 13:00 Blood - Peripheral Venous Blood Culture - Preliminary NO GROWTH OBTAINED AFTER 72 HOURS, INCUBATION TO CONTINUE FOR [address] of the chest: BL groundglass pulmoanry infiltrates are noted suspecious for covid 19 pneumonitis, trace bl pleural effusions are seen, no PE ASSESSMENT AND PLAN: This patient is a 49yom with PMHx of pre-diabetes, bipolar disorder, peripheral neuropathy, was admitted for acute hypoxic respiratory failure CT was done reported highly suspecious for COVID 19 pneumonitis #Acute Hypoxic Respiratory failure most likely due to COVID19 Pneumonitis, even though the test is negative, and the repeat is negative as well, but highly suspecious of covid. CRP is trending down. On IV rocephin and doxy ,follow daily marker , on vit c/zinc/vit D, on Solu medrol , Lovenox, steroid inhaler. Pulm and ID on the case. #mild JANNA 1.2 today #Normocytic mild Anemia will monitor, will do b12/Fa/to be ordered, iron studies as above #Peripheral Neuropathy: continue Lyrica home dose #Bipolar Disorder: as per psychiatrist :continue Seroquel 25 mg po bid and Trazadone 150 mg po hs s per psychiatrist DVT px: lovenox bid Visit type - Emergency Visit Emergency Visit: Yes ED Registration Date: 12/21/19 Care time: The patient presented to the Emergency Department on the above date and was hospitalized for further evaluation of their emergent condition. - New Patient This patient is new to me today: No - Critical Care Critical Care patient: No - Discharge Referral Referred to [facility] Med P.C.: No
--- NOTE | 2019-12-25 16:31 | PN ---
Progress Note, Physician History of Present Illness: Pt is alert, stating he is feeling less SOB. Still with some dry cough when taking deep breath. Currently on nasal cannula with 93% O2 sat. C/O "weird sensation" and discomfort at IV sites, refusing placement. No noted erythema/edema/warmth noted at previous sites. - Current Medication List Current Medications: Active Medications Acetaminophen (Tylenol -) 650 mg PO Q6H PRN PRN Reason: FEVER Last Admin: 12/24/19 20:25 Dose: 650 mg Documented by: Ascorbic Acid (Vitamin C -) 500 mg PO BID [facility] Last Admin: 12/25/19 09:32 Dose: 500 mg Documented by: Budesonide/Formoterol Fumarate (Symbicort 160/4.5mcg -) 2 puff IH BID [facility] Last Admin: 12/25/19 09:33 Dose: 2 puff Documented by: Cholecalciferol (Vitamin D3 -) 2,000 unit PO DAILY [facility] Last Admin: 12/25/19 09:32 Dose: 2,000 unit Documented by: Enoxaparin Sodium (Lovenox -) 40 mg SQ BID [facility] Last Admin: 12/25/19 09:33 Dose: 40 mg Documented by: Doxycycline Hyclate 100 mg/ (Dextrose) 100 mls @ 100 mls/hr IVPB BID [facility] Last Admin: 12/25/19 09:33 Dose: 100 mls/hr Documented by: Ceftriaxone Sodium 1 gm/ (Sodium Chloride) 50 mls @ 100 mls/hr IVPB DAILY [facility]; Protocol Last Admin: 12/25/19 09:33 Dose: 100 mls/hr Documented by: Insulin Aspart (Novolog Vial Sliding Scale -) 1 vial SQ ACHS [facility]; Protocol Last Admin: 12/25/19 12:21 Dose: Not Given Documented by: Methylprednisolone Sodium Succinate (Solu-Medrol -) 60 mg IVPUSH Q12H [facility] Last Admin: 12/25/19 09:33 Dose: 60 mg Documented by: Pantoprazole Sodium (Protonix -) 40 mg PO DAILY [facility] Last Admin: 12/25/19 09:32 Dose: 40 mg Documented by: Pregabalin (Lyrica -) 150 mg PO BID [facility] Last Admin: 12/25/19 09:32 Dose: 150 mg Documented by: Quetiapine Fumarate (Seroquel -) 25 mg PO BID [facility] Last Admin: 12/25/19 09:32 Dose: 25 mg Documented by: Trazodone HCl (Desyrel -) 150 mg PO HS [facility] Last Admin: 12/24/19 21:17 Dose: 150 mg Documented by: Zinc Sulfate (Orazinc -) 220 mg PO BID [facility] Last Admin: 12/25/19 09:32 Dose: 220 mg Documented by: - Objective Vital Signs: Vital Signs Temperature 98 F 12/25/19 14:10 Pulse Rate 68 12/25/19 14:10 Respiratory Rate 12/25/19 14:10 Blood Pressure 136/81 12/25/19 14:10 O2 Sat by Pulse Oximetry (%) 93 L 12/25/19 09:00 Constitutional: Yes: No Distress, Calm Cardiovascular: Yes: Regular Rate and Rhythm Respiratory: Yes: CTA Bilaterally Gastrointestinal: Yes: Normal Bowel Sounds, Soft Integumentary: Yes: WNL Neurological: Yes: Alert Labs: CBC, BMP 12/25/19 06:47 12/25/19 06:47 INR, PTT INR 1.20 (0.83-1.09) H 12/21/19 14:45 Fibrinogen > 500.0 mg/dL (238-498) H 12/23/19 06:04 Laboratory Last Values WBC 12.9 K/mm3 (4.0-10.0) H 12/25/19 06:47 RBC 3.03 M/mm3 (4.00-5.60) L 12/25/19 06:47 Hgb 10.1 GM/dL (11.7-16.9) L 12/25/19 06:47 Hct 30.3 % (35.4-49) L 12/25/19 06:47 MCV 99.9 fl (80-96) H 12/25/19 06:47 MCH 33.2 pg (25.7-33.7) 12/25/19 06:47 MCHC 33.2 g/dl (32.0-35.9) 12/25/19 06:47 RDW 16.9 % (11.9-15.9) H 12/25/19 06:47 Plt Count 302 K/MM3 (134-434) 12/25/19 06:47 MPV 9.6 fl (7.5-11.1) 12/25/19 06:47 Absolute Neuts (auto) 10.6 K/mm3 (1.5-8.0) H 12/25/19 06:47 Neutrophils % 81.7 % (42.8-82.8) 12/25/19 06:47 Lymphocytes % 8.1 % (8-40) D 12/25/19 06:47 Monocytes % 9.9 % (3.8-10.2) D 12/25/19 06:47 Eosinophils % 0.0 % (0-4.5) D 12/25/19 06:47 Basophils % 0.3 % (0-2.0) 12/25/19 06:47 Nucleated RBC % 0 % (0-0) 12/25/19 06:47 ESR 54 mm/hr (0-20) H 12/22/19 05:35 PT with INR 14.20 SEC (9.7-13.0) H 12/21/19 14:45 INR 1.20 (0.83-1.09) H 12/21/19 14:45 PTT (Actin FS) 29.8 SECONDS (25.2-36.5) 12/21/19 14:45 Fibrinogen > 500.0 mg/dL (238-498) H 12/23/19 06:04 D-Dimer 300 ng/ml (0-500) 12/25/19 06:47 VBG pH 7.375 (7.310-7.410) 12/25/19 06:15 POC VBG pCO2 43.2 mmHg (38-52) 12/25/19 06:15 POC VBG pO2 31.4 mmHg (28-48) 12/25/19 06:15 VBG HCO3 24.7 mmol/L (23-29) 12/25/19 06:15 VBG O2 Sat (Jaden) 58.5 % (70-80) L 12/25/19 06:15 VBG Base Excess -0.6 mmol/L (-2-2) 12/25/19 06:15 Sodium 137 mmol/L (136-145) 12/25/19 06:47 Potassium 4.2 mmol/L (3.5-5.1) 12/25/19 06:47 Chloride 105 mmol/L (98-107) 12/25/19 06:47 Carbon Dioxide 25 mmol/L (21-32) 12/25/19 06:47 Anion Gap 7 MMOL/L (8-16) L 12/25/19 06:47 BUN 13.9 mg/dL (7-18) 12/25/19 06:47 Creatinine 1.2 mg/dL (0.55-1.3) 12/25/19 06:47 Est GFR (CKD-EPI)AfAm 80.66 12/25/19 06:47 Est GFR (CKD-EPI)NonAf 69.59 12/25/19 06:47 POC Glucometer 258 UNITS (80-120) 12/25/19 05:40 Random Glucose 189 mg/dL (74-106) H 12/25/19 06:47 Hemoglobin A1c % 5.6 % (4.2-6.3) 12/22/19 05:35 Calcium 8.7 mg/dL (8.5-10.1) 12/25/19 06:47 Phosphorus 3.6 mg/dL (2.5-4.9) 12/25/19 06:47 Magnesium 2.3 mg/dL (1.8-2.4) 12/25/19 06:47 Iron 35 ug/dL (50-175) L 12/22/19 05:35 TIBC 305 ug/dL (250-450) 12/22/19 05:35 Iron Saturation 11 % (17.5-39) L 12/22/19 05:35 Unsaturated IBC 270 ug/dL (200-275) 12/22/19 05:35 Ferritin 231.7 ng/ml (8-388) 12/25/19 06:47 Total Bilirubin 0.6 mg/dL (0.2-1) 12/25/19 06:47 Direct Bilirubin 0.3 mg/dL (0.0-0.2) H 12/22/19 05:35 AST 12 U/L (15-37) L 12/25/19 06:47 ALT 23 U/L (13-61) 12/25/19 06:47 Alkaline Phosphatase 60 U/L (45-117) 12/25/19 06:47 LD Total 212 U/L (87-246) 12/25/19 06:47 Creatine Kinase 256 U/L (26-308) 12/22/19 05:35 Creatine Kinase Index No Result Required. 12/22/19 05:35 CK-MB (CK-2) < 1.0 ng/mL (0.5-3.6) 12/22/19 05:35 Troponin I < 0.02 ng/ml (0.00-0.05) 12/22/19 05:35 C-Reactive Protein 4.4 MG/DL (0.00-0.3) H 12/24/19 06:30 B-Natriuretic Peptide 14.7 pg/ml (5-125) 12/21/19 14:45 Total Protein 6.7 g/dl (6.4-8.2) 12/25/19 06:47 Albumin 3.2 g/dl (3.4-5.0) L 12/25/19 06:47 Vitamin B12 954 pg/ml (193-986) 12/24/19 06:30 Serum Folate 14 ng/mL (3.1-17.5) 12/24/19 06:30 Procalcitonin 0.09 ng/mL (0.00-0.08) H 12/22/19 08:42 TSH 0.10 uIU/ml (0.358-3.74) L 12/24/19 06:30 Urine Color Dk yellow 12/21/19 23:40 Urine Appearance Clear 12/21/19 23:40 Urine pH 8.5 (5.0-8.0) H D 12/21/19 23:40 Ur Specific Joaquin 1.053 (1.010-1.035) H 12/21/19 23:40 Urine Protein Trace (NEGATIVE) 12/21/19 23:40 Urine Glucose (UA) Negative (NEGATIVE) 12/21/19 23:40 Urine Ketones Negative (NEGATIVE) 12/21/19 23:40 Urine Blood Trace (NEGATIVE) 12/21/19 23:40 Urine Nitrite Negative (NEGATIVE) 12/21/19 23:40 Urine Bilirubin Negative (NEGATIVE) 12/21/19 23:40 Urine Urobilinogen 1.0 mg/dL (0.2-1.0) 12/21/19 23:40 Ur Leukocyte Esterase Negative (NEGATIVE) 12/21/19 23:40 Urine WBC (Auto) 3 /uL (0-25.8) 12/21/19 23:40 Urine RBC (Auto) 9 /uL (0-23.9) 12/21/19 23:40 Urine Casts (Auto) 1 /uL (0-3.1) 12/21/19 23:40 U Epithel Cells (Auto) 6 /uL (0-25.1) 12/21/19 23:40 Urine Bacteria (Auto) 11 /uL (0-1359) 12/21/19 23:40 Ur Random Sodium 39 MMOL/L (40-220) L 12/21/19 23:40 COVID-19 (JAZMIN) Not detected (Not Detected) 12/23/19 14:50 SARS-CoV-2 Ab Interp Non-reactive (NONREACTIVE) 12/23/19 06:04 Microbiology 12/22/19 13:00 Blood - Peripheral Venous Blood Culture - Preliminary NO GROWTH OBTAINED AFTER 72 HOURS, INCUBATION TO CONTINUE FOR 2 DAYS. 12/22/19 13:00 Blood - Peripheral Venous Blood Culture - Preliminary NO GROWTH OBTAINED AFTER 72 HOURS, INCUBATION TO CONTINUE FOR 2 DAYS. - ....Imaging Chest X-ray: Report Reviewed Cat Scan: Report Reviewed Problem List - Problems (1) COVID-19 determined by clinical diagnostic criteria Code(s): U07.1 - COVID POSITIVE (2) Hypoxia Code(s): R09.02 - HYPOXEMIA (3) Suspected COVID-19 virus infection Code(s): Z20.828 - CONTACT W AND EXPOSURE TO [facility] VIRAL COMMUNICABLE DISEASES Assessment/Plan Suspected COVID-19 PNA despite COVID neg tests Acute respiratory failure Leukocytosis -- pt now on O2 via NC, stating he is feeling less SOB -- refusing IV placement. May switch to Augmentin/Doxycycline PO -- wbc mildly elevated. Pt is on Solumedrol. Afebrile, comfortable. Continue monitor. -- monitor inflammatory markers --O2 supplementation -- maintain isolation/airborne/droplet/contact precautions
[2019-12-25] MEDS: DOXYCYCLINE HYCLATE 100 MG CAPSULE PO SCH (17:17)
[2019-12-25] MEDS: traZODone HCL 50 MG TABLET (FP) PO SCH (22:00)
[2019-12-25] MEDS: predniSONE 20 MG TABLET (UD) PO SCH (22:00)
[2019-12-26] MEDS: ACETAMINOPHEN 325 MG TABLET (FP) PO PRN ×2 (00:14→21:14)
[2019-12-26] MEDS: INSULIN SLIDING SCALE (NOVOLOG) 1 VIAL SQ SCH ×5 (00:16→21:24)
[2019-12-26] MEDS: BUDESONIDE/FORMETEROL FUMARATE 160/4.5 mcg INHALER IH SCH ×3 (07:05→21:24)
[2019-12-26] MEDS: ZINC SULFATE 220 MG CAPSULE (FP) PO SCH ×2 (09:26→21:13)
[2019-12-26] MEDS: PANTOPRAZOLE 40 MG TABLET PO SCH (09:26)
[2019-12-26] MEDS: PREGABALIN 75 MG CAPSULE PO SCH ×2 (09:26→21:11)
[2019-12-26] MEDS: ASCORBIC ACID 500 MG TABLET (FP) PO SCH ×2 (09:26→21:14)
[2019-12-26] MEDS: AMOX TR/POT CLAV 875MG/125MG TABLETS (FP) PO SCH ×2 (09:26→17:38)
[2019-12-26] MEDS: CHOLECALCIFEROL (VIT D3) 1,000 UNIT (25 MCG) TABLET PO SCH (09:27)
[2019-12-26] MEDS: DOXYCYCLINE HYCLATE 100 MG CAPSULE PO SCH ×2 (09:27→17:39)
[2019-12-26] MEDS: predniSONE 20 MG TABLET (UD) PO SCH ×2 (09:27→21:09)
[2019-12-26] MEDS: QUEtiapine FUMARATE 25 MG TABLET PO SCH ×2 (09:27→21:14)
[2019-12-26] MEDS: ENOXAPARIN NA (PORCINE) 40 MG/0.4 ML DISP.SYRIN SQ SCH ×2 (09:27→21:11)
--- NOTE | 2019-12-26 10:12 | PN ---
Teaching Attending Note Name of Resident: Alejandra Barrett ATTENDING PHYSICIAN STATEMENT I saw and evaluated the patient. I reviewed the resident's note and discussed the case with the resident. I agree with the resident's findings and plan as documented. SUBJECTIVE: 95% O2 sat on 5L NC. States he is feeling better. OBJECTIVE: Vital Signs Temperature 98.4 F 12/26/19 14:05 Pulse Rate 88 12/26/19 14:05 Respiratory Rate 20 12/26/19 14:05 Blood Pressure 128/77 12/26/19 14:05 O2 Sat by Pulse Oximetry (%) 95 12/26/19 09:00 PE:per resident's note CBCD WBC 11.8 K/mm3 (4.0-10.0) H 12/26/19 10:15 RBC 3.10 M/mm3 (4.00-5.60) L 12/26/19 10:15 Hgb 10.3 GM/dL (11.7-16.9) L 12/26/19 10:15 Hct 31.3 % (35.4-49) L 12/26/19 10:15 MCV 101.2 fl (80-96) H 12/26/19 10:15 MCHC 32.8 g/dl (32.0-35.9) 12/26/19 10:15 RDW 17.2 % (11.9-15.9) H 12/26/19 10:15 Plt Count 321 K/MM3 (134-434) 12/26/19 10:15 MPV 9.0 fl (7.5-11.1) 12/26/19 10:15 CMP Sodium 138 mmol/L (136-145) 12/26/19 10:15 Potassium 4.3 mmol/L (3.5-5.1) 12/26/19 10:15 Chloride 104 mmol/L (98-107) 12/26/19 10:15 Carbon Dioxide 25 mmol/L (21-32) 12/26/19 10:15 Anion Gap 9 MMOL/L (8-16) 12/26/19 10:15 BUN 15.2 mg/dL (7-18) 12/26/19 10:15 Creatinine 1.3 mg/dL (0.55-1.3) 12/26/19 10:15 Random Glucose 199 mg/dL (74-106) H 12/26/19 10:15 Calcium 8.7 mg/dL (8.5-10.1) 12/26/19 10:15 Total Bilirubin 0.9 mg/dL (0.2-1) 12/26/19 10:15 AST 9 U/L (15-37) L 12/26/19 10:15 ALT 25 U/L (13-61) 12/26/19 10:15 Alkaline Phosphatase 54 U/L (45-117) 12/26/19 10:15 Total Protein 6.4 g/dl (6.4-8.2) 12/26/19 10:15 Albumin 3.1 g/dl (3.4-5.0) L 12/26/19 10:15 CARDIAC ENZYMES Creatine Kinase 256 U/L (26-308) 12/22/19 05:35 Troponin I < 0.02 ng/ml (0.00-0.05) 12/22/19 05:35 Current Medications Generic Name Dose Route Start Last Admin Trade Name [place] PRN Reason Stop Dose Admin Acetaminophen 650 mg 12/22/19 01:50 12/26/19 00:14 Tylenol - PO 650 mg Q6H PRN Administration FEVER Amoxicillin/Clavulanate Potassium 1 tab 12/26/19 10:00 12/26/19 09:26 Augmentin - 875mg Tablet PO 1 tab BID@0800,1730 PAULETTE Administration Ascorbic Acid 500 mg 12/22/19 10:00 12/26/19 09:26 Vitamin C - PO 500 mg BID PAULETTE Administration Budesonide/Formoterol Fumarate 2 puff 12/22/19 13:00 12/26/19 09:27 Symbicort 160/4.5mcg - IH 2 puff BID PAULETTE Administration Cholecalciferol 2,000 unit 12/22/19 10:00 12/26/19 09:27 Vitamin D3 - PO 2,000 unit DAILY PAULETTE Administration Doxycycline Hyclate 100 mg 12/25/19 18:00 12/26/19 09:27 Vibramycin - PO 100 mg BID@1000,1800 PAULETTE Administration Enoxaparin Sodium 40 mg 12/22/19 22:00 12/26/19 09:27 Lovenox - SQ 40 mg BID PAULETTE Administration Insulin Aspart 1 vial 12/22/19 07:00 12/26/19 07:05 Novolog Vial Sliding Scale - SQ Not Given ACHS PAULETTE Protocol Pantoprazole Sodium 40 mg 12/22/19 10:00 12/26/19 09:26 Protonix - PO 40 mg DAILY PAULETTE Administration Prednisone 60 mg 12/25/19 22:00 12/26/19 09:27 Deltasone - PO 60 mg BID PAULETTE Administration Pregabalin 150 mg 12/22/19 10:00 12/26/19 09:26 Lyrica - PO 150 mg BID PAULETTE Administration Quetiapine Fumarate 25 mg 12/23/19 22:00 12/26/19 09:27 Seroquel - PO 25 mg BID PAULETTE Administration Trazodone HCl 150 mg 12/22/19 01:39 12/25/19 22:00 Desyrel - PO 150 mg HS PAULETTE Administration Zinc Sulfate 220 mg 12/22/19 10:00 12/26/19 09:26 Orazinc - PO 220 mg BID PAULETTE Administration Home Medications Medication Instructions Recorded Trazodone HCl 150 mg PO HS #30 tablet 05/12/19 Pregabalin [Lyrica -] 150 mg PO BID 12/21/19 Microbiology 12/22/19 13:00 Blood - Peripheral Venous Blood Culture - Preliminary NO GROWTH OBTAINED AFTER 72 HOURS, INCUBATION TO CONTINUE FOR 2 DAYS. 12/22/19 13:00 Blood - Peripheral Venous Blood Culture - Preliminary NO GROWTH OBTAINED AFTER 72 HOURS, INCUBATION TO CONTINUE FOR [address] of the chest: BL groundglass pulmoanry infiltrates are noted suspecious for covid 19 pneumonitis, trace bl pleural effusions are seen, no PE ASSESSMENT AND PLAN: This patient is a 49yom with PMHx of pre-diabetes, bipolar disorder, peripheral neuropathy, was admitted for acute hypoxic respiratory failure CT was done reported highly suspecious for COVID 19 pneumonitis #Acute Hypoxic Respiratory failure most likely due to COVID19 Pneumonitis, even though the test is negative x 2, highly suspecious of covid. CRP is trending down. On IV rocephin and doxy switched to oral abx as per ID, will continue to follow daily marker , on vit c/zinc/vit D, on po prednisone now s/p IV solu medrol, Lovenox, steroid inhaler. Pulm and ID on the case. pre and post ordered , possible dc home with home oxygen #mild JANNA 1.2 --1.3 today #Normocytic mild Anemia will monitor, will do b12/Fa/to be ordered, iron studies as above #Peripheral Neuropathy: continue Lyrica home dose #Bipolar Disorder: as per psychiatrist :continue Seroquel 25 mg po bid and Trazadone 150 mg po hs s per psychiatrist DVT px: lovenox bid continue to trend markers
[2019-12-26 11:05] LABS: BASO % 0.1 % (0-2.0); HEMATOCRIT 31.3 % (35.4-49); HEMOGLOBIN 10.3 GM/dL (11.7-16.9); MCH 33.2 pg (25.7-33.7); MCHC 32.8 g/dl (32.0-35.9); MEAN CELL VOLUME 101.2 fl (80-96); NEUT % 84.9 % (42.8-82.8); PLATELET COUNT 321 K/MM3 (134-434); RDW 17.2 % (11.9-15.9); WHITE BLOOD COUNT 11.8 K/mm3 (4.0-10.0)
[2019-12-26 11:35] LABS: ALBUMIN 3.1 g/dl (3.4-5.0); BILIRUBIN,TOTAL 0.9 mg/dL (0.2-1); BLOOD UREA NITROGEN 15.2 mg/dL (7-18); CALCIUM 8.7 mg/dL (8.5-10.1); CREATININE 1.3 mg/dL (0.55-1.3); MAGNESIUM 2.1 mg/dL (1.8-2.4); PHOSPHOROUS 3.6 mg/dL (2.5-4.9); POTASSIUM 4.3 mmol/L (3.5-5.1); TOT PROT 6.4 g/dl (6.4-8.2)
--- NOTE | 2019-12-26 12:25 | PN ---
Progress Note (short form) - Note Progress Note: PULMONARY Breathing slowly improving, remains on 5L nasal cannula. Still with headache and nonproductive cough. Vital Signs Period Temp Pulse Resp BP Sys/Moreno Pulse Ox Last 24 Hr 97.4 F-98.8 F 65-82 20-20 129-158/71-94 94-97 Gen: less tachypneic at rest Heart: RRR Lung: decreased breath sounds at the bases Abd: soft, nontender Ext: no edema CBC, BMP 12/26/19 10:15 12/26/19 10:15 Active Medications Acetaminophen (Tylenol -) 650 mg PO Q6H PRN PRN Reason: FEVER Last Admin: 12/26/19 00:14 Dose: 650 mg Documented by: Amoxicillin/Clavulanate Potassium (Augmentin - 875mg Tablet) 1 tab PO BID@0800,1730 [facility] Last Admin: 12/26/19 09:26 Dose: 1 tab Documented by: Ascorbic Acid (Vitamin C -) 500 mg PO BID [facility] Last Admin: 12/26/19 09:26 Dose: 500 mg Documented by: Budesonide/Formoterol Fumarate (Symbicort 160/4.5mcg -) 2 puff IH BID [facility] Last Admin: 12/26/19 09:27 Dose: 2 puff Documented by: Cholecalciferol (Vitamin D3 -) 2,000 unit PO DAILY [facility] Last Admin: 12/26/19 09:27 Dose: 2,000 unit Documented by: Doxycycline Hyclate (Vibramycin -) 100 mg PO BID@1000,1800 [facility] Last Admin: 12/26/19 09:27 Dose: 100 mg Documented by: Enoxaparin Sodium (Lovenox -) 40 mg SQ BID [facility] Last Admin: 12/26/19 09:27 Dose: 40 mg Documented by: Insulin Aspart (Novolog Vial Sliding Scale -) 1 vial SQ [facility]; Protocol Last Admin: 12/26/19 07:05 Dose: Not Given Documented by: Pantoprazole Sodium (Protonix -) 40 mg PO DAILY [facility] Last Admin: 12/26/19 09:26 Dose: 40 mg Documented by: Prednisone (Deltasone -) 60 mg PO BID [facility] Last Admin: 12/26/19 09:27 Dose: 60 mg Documented by: Pregabalin (Lyrica -) 150 mg PO BID [facility] Last Admin: 12/26/19 09:26 Dose: 150 mg Documented by: Quetiapine Fumarate (Seroquel -) 25 mg PO BID [facility] Last Admin: 12/26/19 09:27 Dose: 25 mg Documented by: Trazodone HCl (Desyrel -) 150 mg PO HS [facility] Last Admin: 12/25/19 22:00 Dose: 150 mg Documented by: Zinc Sulfate (Orazinc -) 220 mg PO BID [facility] Last Admin: 12/26/19 09:26 Dose: 220 mg Documented by: A/P Acute Hypoxic Respiratory Failure Suspected COVID19 Pneumonia Bipolar Disorder GERD - O2 to keep SpO2 >90% - continue prednisone - continue anticoagulation - trend inflammatory markers - continue antibiotics - pulse oximetry monitoring
--- NOTE | 2019-12-26 12:39 | PN ---
Physical Exam: SUBJECTIVE: Patient seen and examined, is feeling much better - he can tell because he feels he is mentally much more alert. He was feeling upset about something, did not want to disclose because he felt it was not important, but if it becomes an issue he will let me know. He knows that he is feeling better because when he is not feeling well, he would not get upset because of lack of energy. Was lying comfortably in bed watching youtube, no acute events overnight. Sat around 95%, QTc 420-430 OBJECTIVE: Vital Signs Period Temp Pulse Resp BP Sys/Moreno Pulse Ox Last 24 Hr 97.4 F-98.8 F 65-82 20-20 129-158/71-94 94-97 PE: did not preform due to suspected COVID despite negative testing x2. Patient was lying comfortably in bed, on NC Laboratory Results - last 24 hr 12/25/19 12/25/19 12/25/19 06:47 17:21 23:02 WBC RBC Hgb Hct MCV MCH MCHC RDW Plt Count MPV Absolute Neuts (auto) Neutrophils % Lymphocytes % Monocytes % Eosinophils % Basophils % Nucleated RBC % D-Dimer Sodium Potassium Chloride Carbon Dioxide Anion Gap BUN Creatinine Est GFR (CKD-EPI)AfAm Est GFR (CKD-EPI)NonAf POC Glucometer 174 142 Random Glucose Calcium Phosphorus Magnesium Total Bilirubin AST ALT Alkaline Phosphatase C-Reactive Protein 2.2 H Total Protein Albumin 12/26/19 12/26/19 12/26/19 06:05 10:15 10:15 WBC 11.8 H RBC 3.10 L Hgb 10.3 L Hct 31.3 L MCV 101.2 H MCH 33.2 MCHC 32.8 RDW 17.2 H Plt Count 321 MPV 9.0 Absolute Neuts (auto) 10.0 H Neutrophils % 84.9 H Lymphocytes % 9.0 Monocytes % 6.0 Eosinophils % 0.0 Basophils % 0.1 Nucleated RBC % 0 D-Dimer Sodium 138 Potassium 4.3 Chloride 104 Carbon Dioxide 25 Anion Gap 9 BUN 15.2 Creatinine 1.3 Est GFR (CKD-EPI)AfAm 73.22 Est GFR (CKD-EPI)NonAf 63.18 POC Glucometer 130 Random Glucose 199 H Calcium 8.7 Phosphorus 3.6 Magnesium 2.1 Total Bilirubin 0.9 AST 9 L ALT 25 Alkaline Phosphatase 54 C-Reactive Protein 1.2 H Total Protein 6.4 Albumin 3.1 L 12/26/19 12/26/19 10:15 11:01 WBC RBC Hgb Hct MCV MCH MCHC RDW Plt Count MPV Absolute Neuts (auto) Neutrophils % Lymphocytes % Monocytes % Eosinophils % Basophils % Nucleated RBC % D-Dimer 303 Sodium Potassium Chloride Carbon Dioxide Anion Gap BUN Creatinine Est GFR (CKD-EPI)AfAm Est GFR (CKD-EPI)NonAf POC Glucometer 153 Random Glucose Calcium Phosphorus Magnesium Total Bilirubin AST ALT Alkaline Phosphatase C-Reactive Protein Total Protein Albumin Active Medications Generic Name Dose Route Start Last Admin Trade Name Freq PRN Reason Stop Dose Admin Acetaminophen 650 mg 12/22/19 01:50 12/26/19 00:14 Tylenol - PO 650 mg Q6H PRN Administration FEVER Amoxicillin/Clavulanate Potassium 1 tab 12/26/19 10:00 12/26/19 09:26 Augmentin - 875mg Tablet PO 1 tab BID@0800,1730 PAULETTE Administration Ascorbic Acid 500 mg 12/22/19 10:00 12/26/19 09:26 Vitamin C - PO 500 mg BID PAULETTE Administration Budesonide/Formoterol Fumarate 2 puff 12/22/19 13:00 12/26/19 09:27 Symbicort 160/4.5mcg - IH 2 puff BID PAULETTE Administration Cholecalciferol 2,000 unit 12/22/19 10:00 12/26/19 09:27 Vitamin D3 - PO 2,000 unit DAILY PAULETTE Administration Doxycycline Hyclate 100 mg 12/25/19 18:00 12/26/19 09:27 Vibramycin - PO 100 mg BID@1000,1800 PAULETTE Administration Enoxaparin Sodium 40 mg 12/22/19 22:00 12/26/19 09:27 Lovenox - SQ 40 mg BID PAULETTE Administration Insulin Aspart 1 vial 12/22/19 07:00 12/26/19 12:25 Novolog Vial Sliding Scale - SQ 2 units ACHS PAULETTE Administration Protocol Pantoprazole Sodium 40 mg 12/22/19 10:00 12/26/19 09:26 Protonix - PO 40 mg DAILY PAULETTE Administration Prednisone 60 mg 12/25/19 22:00 12/26/19 09:27 Deltasone - PO 60 mg BID PAULETTE Administration Pregabalin 150 mg 12/22/19 10:00 12/26/19 09:26 Lyrica - PO 150 mg BID PAULETTE Administration Quetiapine Fumarate 25 mg 12/23/19 22:00 12/26/19 09:27 Seroquel - PO 25 mg BID PAULETTE Administration Trazodone HCl 150 mg 12/22/19 01:39 12/25/19 22:00 Desyrel - PO 150 mg HS PAULETTE Administration Zinc Sulfate 220 mg 12/22/19 10:00 12/26/19 09:26 Orazinc - PO 220 mg BID PAULETTE Administration ASSESSMENT/PLAN: 49yo M with PMHx of pre-diabetes, bipolar disorder, peripheral neuropathy, smoking hx (stopped 5 years ago), and chronic diarrhea being admitted for acute hypoxic respiratory failure likely 2/2 to COVID 19 pneumonitis (PCR ab not detected x2); also with JANNA. #Acute Hypoxic RF 2/2 to ?COVID19 Pneumonitis - improving COVID PCR not detected x2 less likely bacterial CAP CTA showing bilateral GGOs, negative for PE - initial and repeat COVID serologies were not detected - SpO2 goal >93% - currently sat 95% on NC - Vitamin C/D; Zinc - doxy 100 bid for anti-inflammtory properties - 6 mg IV push dexamethasone daily x 10 days, as per COVID 19 NIH guidelines - protonix PO 40 daily for GI ppx while on steroids - tylenol PRN for fever - continue trending inflammatory markers (CRP, LDH, ferritin, D-dimer) - f/u D-dimer; if > 2000, will give additional lovenox dose, as per day team (already received 60 mg lovenox in ED) - UA, legionella, strep, blood cx ordered - blood cx NGTD - CXR PRN - continue monitoring extent of pneumonitis #JANNA - resolving Likely 2/2 to COVID 19 Cr stable at 1.3 (baseline?) - UA, Urine lytes unremarkable - avoid nephrotoxic agents - d/c's fluids - monitor Cr #Anemia (likely Anemia of Chronic Disease given normal MVC) - Hgb initially downtrending, now stable at 10.3 - iron studies showing decreased iron 35 but TIBC and ferritin WNL - continue trending daily - transfuse if Hb < 7 - no acute signs of bleeding at this time #Pre-Diabetes Pt likely to be hyperglycemic on steroids, A1C 5.6 - BGM ACHS ISS Peripheral Neuropathy - continue home lyrica 150 bid #Bipolar Disorder - continue home trazadone 150 qhs - patient stated that he normally takes quetiapine 400 - started quetiapine 25 at nighttime and awaiting psych recs - monitor daily QTc - seen by psych consult - appreciated recs: continue current regimen with trazodone and quetiapine #PPX - DVT: enoxaparin - GI: pantoprazole #FEN -F - no standing fluids -E - monitor lytes; replete prn -N - low Na, diabetic diet #Dispo - admit to med-surg Visit type - Emergency Visit Emergency Visit: Yes ED Registration Date: 12/21/19 Care time: The patient presented to the Emergency Department on the above date and was hospitalized for further evaluation of their emergent condition. - New Patient This patient is new to me today: No - Critical Care Critical Care patient: No ATTENDING PHYSICIAN STATEMENT I saw and evaluated the patient. I reviewed the resident's note and discussed the case with the resident. I agree with the resident's findings and plan as documented. SUBJECTIVE: OBJECTIVE: ASSESSMENT AND PLAN:
--- NOTE | 2019-12-26 16:08 | PN ---
Progress Note, Physician History of Present Illness: Pt is alert, afebrile, comfortable sitting in bed. No cough noted during examination. 95% O2 sat on 5L NC. States he is feeling better. - Current Medication List Current Medications: Active Medications Acetaminophen (Tylenol -) 650 mg PO Q6H PRN PRN Reason: FEVER Last Admin: 12/26/19 00:14 Dose: 650 mg Documented by: Amoxicillin/Clavulanate Potassium (Augmentin - 875mg Tablet) 1 tab PO BID@0800,1730 [facility] Last Admin: 12/26/19 09:26 Dose: 1 tab Documented by: Ascorbic Acid (Vitamin C -) 500 mg PO BID [facility] Last Admin: 12/26/19 09:26 Dose: 500 mg Documented by: Budesonide/Formoterol Fumarate (Symbicort 160/4.5mcg -) 2 puff IH BID [facility] Last Admin: 12/26/19 09:27 Dose: 2 puff Documented by: Cholecalciferol (Vitamin D3 -) 2,000 unit PO DAILY [facility] Last Admin: 12/26/19 09:27 Dose: 2,000 unit Documented by: Doxycycline Hyclate (Vibramycin -) 100 mg PO BID@1000,1800 [facility] Last Admin: 12/26/19 09:27 Dose: 100 mg Documented by: Enoxaparin Sodium (Lovenox -) 40 mg SQ BID [facility] Last Admin: 12/26/19 09:27 Dose: 40 mg Documented by: Insulin Aspart (Novolog Vial Sliding Scale -) 1 vial SQ [facility]; Protocol Last Admin: 12/26/19 12:25 Dose: 2 units Documented by: Pantoprazole Sodium (Protonix -) 40 mg PO DAILY [facility] Last Admin: 12/26/19 09:26 Dose: 40 mg Documented by: Prednisone (Deltasone -) 60 mg PO BID [facility] Last Admin: 12/26/19 09:27 Dose: 60 mg Documented by: Pregabalin (Lyrica -) 150 mg PO BID [facility] Last Admin: 12/26/19 09:26 Dose: 150 mg Documented by: Quetiapine Fumarate (Seroquel -) 25 mg PO BID [facility] Last Admin: 12/26/19 09:27 Dose: 25 mg Documented by: Trazodone HCl (Desyrel -) 150 mg PO HS [facility] Last Admin: 12/25/19 22:00 Dose: 150 mg Documented by: Zinc Sulfate (Orazinc -) 220 mg PO BID [facility]E Last Admin: 12/26/19 09:26 Dose: 220 mg Documented by: - Objective Vital Signs: Vital Signs Temperature 98.4 F 12/26/19 14:05 Pulse Rate 88 12/26/19 14:05 Respiratory Rate 20 12/26/19 14:05 Blood Pressure 128/77 12/26/19 14:05 O2 Sat by Pulse Oximetry (%) 95 12/26/19 09:00 Constitutional: Yes: No Distress, Calm Cardiovascular: Yes: Regular Rate and Rhythm Respiratory: Yes: Other (mildly diminished breath sounds bibasilar, no wheeze/ rhonchi) Gastrointestinal: Yes: Normal Bowel Sounds, Soft Genitourinary: Yes: WNL Extremities: Yes: WNL Integumentary: Yes: WNL Neurological: Yes: Alert, Oriented Labs: CBC, BMP 12/26/19 10:15 12/26/19 10:15 INR, PTT INR 1.20 (0.83-1.09) H 12/21/19 14:45 Fibrinogen > 500.0 mg/dL (238-498) H 12/23/19 06:04 Laboratory Last Values WBC 11.8 K/mm3 (4.0-10.0) H 12/26/19 10:15 RBC 3.10 M/mm3 (4.00-5.60) L 12/26/19 10:15 Hgb 10.3 GM/dL (11.7-16.9) L 12/26/19 10:15 Hct 31.3 % (35.4-49) L 12/26/19 10:15 MCV 101.2 fl (80-96) H 12/26/19 10:15 MCH 33.2 pg (25.7-33.7) 12/26/19 10:15 MCHC 32.8 g/dl (32.0-35.9) 12/26/19 10:15 RDW 17.2 % (11.9-15.9) H 12/26/19 10:15 Plt Count 321 K/MM3 (134-434) 12/26/19 10:15 MPV 9.0 fl (7.5-11.1) 12/26/19 10:15 Absolute Neuts (auto) 10.0 K/mm3 (1.5-8.0) H 12/26/19 10:15 Neutrophils % 84.9 % (42.8-82.8) H 12/26/19 10:15 Lymphocytes % 9.0 % (8-40) 12/26/19 10:15 Monocytes % 6.0 % (3.8-10.2) 12/26/19 10:15 Eosinophils % 0.0 % (0-4.5) 12/26/19 10:15 Basophils % 0.1 % (0-2.0) 12/26/19 10:15 Nucleated RBC % 0 % (0-0) 12/26/19 10:15 ESR 54 mm/hr (0-20) H 12/22/19 05:35 PT with INR 14.20 SEC (9.7-13.0) H 12/21/19 14:45 INR 1.20 (0.83-1.09) H 12/21/19 14:45 PTT (Actin FS) 29.8 SECONDS (25.2-36.5) 12/21/19 14:45 Fibrinogen > 500.0 mg/dL (238-498) H 12/23/19 06:04 D-Dimer 303 ng/ml (0-500) 12/26/19 10:15 VBG pH 7.375 (7.310-7.410) 12/25/19 06:15 POC VBG pCO2 43.2 mmHg (38-52) 12/25/19 06:15 POC VBG pO2 31.4 mmHg (28-48) 12/25/19 06:15 VBG HCO3 24.7 mmol/L (23-29) 12/25/19 06:15 VBG O2 Sat (Jaden) 58.5 % (70-80) L 12/25/19 06:15 VBG Base Excess -0.6 mmol/L (-2-2) 12/25/19 06:15 Sodium 138 mmol/L (136-145) 12/26/19 10:15 Potassium 4.3 mmol/L (3.5-5.1) 12/26/19 10:15 Chloride 104 mmol/L (98-107) 12/26/19 10:15 Carbon Dioxide 25 mmol/L (21-32) 12/26/19 10:15 Anion Gap 9 MMOL/L (8-16) 12/26/19 10:15 BUN 15.2 mg/dL (7-18) 12/26/19 10:15 Creatinine 1.3 mg/dL (0.55-1.3) 12/26/19 10:15 Est GFR (CKD-EPI)AfAm 73.22 12/26/19 10:15 Est GFR (CKD-EPI)NonAf 63.18 12/26/19 10:15 POC Glucometer 153 UNITS (80-120) 12/26/19 11:01 Random Glucose 199 mg/dL (74-106) H 12/26/19 10:15 Hemoglobin A1c % 5.6 % (4.2-6.3) 12/22/19 05:35 Calcium 8.7 mg/dL (8.5-10.1) 12/26/19 10:15 Phosphorus 3.6 mg/dL (2.5-4.9) 12/26/19 10:15 Magnesium 2.1 mg/dL (1.8-2.4) 12/26/19 10:15 Iron 35 ug/dL (50-175) L 12/22/19 05:35 TIBC 305 ug/dL (250-450) 12/22/19 05:35 Iron Saturation 11 % (17.5-39) L 12/22/19 05:35 Unsaturated IBC 270 ug/dL (200-275) 12/22/19 05:35 Ferritin 231.7 ng/ml (8-388) 12/25/19 06:47 Total Bilirubin 0.9 mg/dL (0.2-1) 12/26/19 10:15 Direct Bilirubin 0.3 mg/dL (0.0-0.2) H 12/22/19 05:35 AST 9 U/L (15-37) L 12/26/19 10:15 ALT 25 U/L (13-61) 12/26/19 10:15 Alkaline Phosphatase 54 U/L (45-117) 12/26/19 10:15 LD Total 212 U/L (87-246) 12/25/19 06:47 Creatine Kinase 256 U/L (26-308) 12/22/19 05:35 Creatine Kinase Index No Result Required. 12/22/19 05:35 CK-MB (CK-2) < 1.0 ng/mL (0.5-3.6) 12/22/19 05:35 Troponin I < 0.02 ng/ml (0.00-0.05) 12/22/19 05:35 C-Reactive Protein 1.2 MG/DL (0.00-0.3) H 12/26/19 10:15 B-Natriuretic Peptide 14.7 pg/ml (5-125) 12/21/19 14:45 Total Protein 6.4 g/dl (6.4-8.2) 12/26/19 10:15 Albumin 3.1 g/dl (3.4-5.0) L 12/26/19 10:15 Vitamin B12 954 pg/ml (193-986) 12/24/19 06:30 Serum Folate 14 ng/mL (3.1-17.5) 12/24/19 06:30 Procalcitonin 0.09 ng/mL (0.00-0.08) H 12/22/19 08:42 TSH 0.10 uIU/ml (0.358-3.74) L 12/24/19 06:30 Urine Color Dk yellow 12/21/19 23:40 Urine Appearance Clear 12/21/19 23:40 Urine pH 8.5 (5.0-8.0) H D 12/21/19 23:40 Ur Specific Paron 1.053 (1.010-1.035) H 12/21/19 23:40 Urine Protein Trace (NEGATIVE) 12/21/19 23:40 Urine Glucose (UA) Negative (NEGATIVE) 12/21/19 23:40 Urine Ketones Negative (NEGATIVE) 12/21/19 23:40 Urine Blood Trace (NEGATIVE) 12/21/19 23:40 Urine Nitrite Negative (NEGATIVE) 12/21/19 23:40 Urine Bilirubin Negative (NEGATIVE) 12/21/19 23:40 Urine Urobilinogen 1.0 mg/dL (0.2-1.0) 12/21/19 23:40 Ur Leukocyte Esterase Negative (NEGATIVE) 12/21/19 23:40 Urine WBC (Auto) 3 /uL (0-25.8) 12/21/19 23:40 Urine RBC (Auto) 9 /uL (0-23.9) 12/21/19 23:40 Urine Casts (Auto) 1 /uL (0-3.1) 12/21/19 23:40 U Epithel Cells (Auto) 6 /uL (0-25.1) 12/21/19 23:40 Urine Bacteria (Auto) 11 /uL (0-1359) 12/21/19 23:40 Ur Random Sodium 39 MMOL/L (40-220) L 12/21/19 23:40 COVID-19 (JAZMIN) Not detected (Not Detected) 12/23/19 14:50 SARS-CoV-2 Ab Interp Non-reactive (NONREACTIVE) 12/23/19 06:04 Microbiology 12/22/19 13:00 Blood - Peripheral Venous Blood Culture - Preliminary NO GROWTH OBTAINED AFTER 96 HOURS, INCUBATION TO CONTINUE FOR 1 DAYS. 12/22/19 13:00 Blood - Peripheral Venous Blood Culture - Preliminary NO GROWTH OBTAINED AFTER 96 HOURS, INCUBATION TO CONTINUE FOR 1 DAYS. Problem List - Problems (1) COVID-19 determined by clinical diagnostic criteria Code(s): U07.1 - COVID POSITIVE (2) Hypoxia Code(s): R09.02 - HYPOXEMIA (3) Suspected COVID-19 virus infection Code(s): Z20.828 - CONTACT W AND EXPOSURE TO OTH VIRAL COMMUNICABLE DISEASES Assessment/Plan Suspected COVID-19 PNA despite COVID neg tests Acute respiratory failure Leukocytosis -- pt feeling better -- afebrile, without distress 95% O2 sat on 5L NC -- on Augmentin/Doxycycline PO empirically, continue -- wbc leukocytosis,on steroids -- monitor inflammatory markers --O2 supplementation -- maintain isolation/airborne/droplet/contact precautions
[2019-12-26] MEDS: traZODone HCL 50 MG TABLET (FP) PO SCH (21:10)
[2019-12-27] MEDS: INSULIN SLIDING SCALE (NOVOLOG) 1 VIAL SQ SCH ×4 (06:48→21:27)
[2019-12-27 07:47] LABS: BASO % 0.3 % (0-2.0); EOS % 0.2 % (0-4.5); HEMATOCRIT 30.9 % (35.4-49); LYMPH % 10.7 % (8-40); MCH 32.4 pg (25.7-33.7); MCHC 32.4 g/dl (32.0-35.9); MEAN CELL VOLUME 100.1 fl (80-96); MEAN PLT VOLUME 9.4 fl (7.5-11.1); MONO % 8.7 % (3.8-10.2); NEUT % 80.1 % (42.8-82.8); PLATELET COUNT 307 K/MM3 (134-434); RBC 3.09 M/mm3 (4.00-5.60); RDW 17.7 % (11.9-15.9); WHITE BLOOD COUNT 13.2 K/mm3 (4.0-10.0)
--- NOTE | 2019-12-27 08:00 | PN ---
Physical Exam: SUBJECTIVE: Patient seen and examined, lying awake in bed saying that he feels good. He said he wonders how he would do without oxygen. He also feels that his cough has improved. On 5L NC sat 94-95%. QTc 428 OBJECTIVE: Vital Signs Period Temp Pulse Resp BP Sys/Moreno Pulse Ox Last 24 Hr 97.8 F-98.6 F 65-88 20-20 123-136/75-82 93-95 GENERAL: mildly overweight, AAM, appears somewhat younger than stated age, AAO x4, in no acute distress HEAD: Normal with no signs of trauma, on NC LUNGS: CTAB HEART: RRR, S1, S2 without murmur ABDOMEN: Soft, mildly distended, active bowel sounds EXTREMITIES: 2+ pulses, warm, well-perfused, no edema. PSYCH: calm, appropriate affect and mood, mildly hyperverbal without pressured speech SKIN: Warm, no rashes or lesions noted Laboratory Results - last 24 hr 12/26/19 12/26/19 12/26/19 10:15 10:15 10:15 WBC 11.8 H RBC 3.10 L Hgb 10.3 L Hct 31.3 L MCV 101.2 H MCH 33.2 MCHC 32.8 RDW 17.2 H Plt Count 321 MPV 9.0 Absolute Neuts (auto) 10.0 H Neutrophils % 84.9 H Lymphocytes % 9.0 Monocytes % 6.0 Eosinophils % 0.0 Basophils % 0.1 Nucleated RBC % 0 D-Dimer 303 Sodium 138 Potassium 4.3 Chloride 104 Carbon Dioxide 25 Anion Gap 9 BUN 15.2 Creatinine 1.3 Est GFR (CKD-EPI)AfAm 73.22 Est GFR (CKD-EPI)NonAf 63.18 POC Glucometer Random Glucose 199 H Calcium 8.7 Phosphorus 3.6 Magnesium 2.1 Total Bilirubin 0.9 AST 9 L ALT 25 Alkaline Phosphatase 54 C-Reactive Protein 1.2 H Total Protein 6.4 Albumin 3.1 L 12/26/19 12/26/19 12/26/19 11:01 17:30 21:17 WBC RBC Hgb Hct MCV MCH MCHC RDW Plt Count MPV Absolute Neuts (auto) Neutrophils % Lymphocytes % Monocytes % Eosinophils % Basophils % Nucleated RBC % D-Dimer Sodium Potassium Chloride Carbon Dioxide Anion Gap BUN Creatinine Est GFR (CKD-EPI)AfAm Est GFR (CKD-EPI)NonAf POC Glucometer 153 181 157 Random Glucose Calcium Phosphorus Magnesium Total Bilirubin AST ALT Alkaline Phosphatase C-Reactive Protein Total Protein Albumin 12/27/19 05:41 WBC RBC Hgb Hct MCV MCH MCHC RDW Plt Count MPV Absolute Neuts (auto) Neutrophils % Lymphocytes % Monocytes % Eosinophils % Basophils % Nucleated RBC % D-Dimer Sodium Potassium Chloride Carbon Dioxide Anion Gap BUN Creatinine Est GFR (CKD-EPI)AfAm Est GFR (CKD-EPI)NonAf POC Glucometer 159 Random Glucose Calcium Phosphorus Magnesium Total Bilirubin AST ALT Alkaline Phosphatase C-Reactive Protein Total Protein Albumin Active Medications Generic Name Dose Route Start Last Admin Trade Name Freq PRN Reason Stop Dose Admin Acetaminophen 650 mg 12/22/19 01:50 12/26/19 21:14 Tylenol - PO 650 mg Q6H PRN Administration FEVER Amoxicillin/Clavulanate Potassium 1 tab 12/26/19 10:00 12/26/19 17:38 Augmentin - 875mg Tablet PO 1 tab BID@0800,1730 PAULETTE Administration Ascorbic Acid 500 mg 12/22/19 10:00 12/26/19 21:14 Vitamin C - PO 500 mg BID PAULETTE Administration Budesonide/Formoterol Fumarate 2 puff 12/22/19 13:00 12/26/19 21:24 Symbicort 160/4.5mcg - IH 2 puff BID PAULETTE Administration Cholecalciferol 2,000 unit 12/22/19 10:00 12/26/19 09:27 Vitamin D3 - PO 2,000 unit DAILY [facility]ULETTE Administration Doxycycline Hyclate 100 mg 12/25/19 18:00 12/26/19 17:39 Vibramycin - PO 100 mg BID@1000,1800 [facility]ULETTE Administration Enoxaparin Sodium 40 mg 12/22/19 22:00 12/26/19 21:11 Lovenox - SQ 40 mg BID PAULETTE Administration Insulin Aspart 1 vial 12/22/19 07:00 12/27/19 06:48 Novolog Vial Sliding Scale - SQ Not Given ACHS [facility] Protocol Pantoprazole Sodium 40 mg 12/22/19 10:00 12/26/19 09:26 Protonix - PO 40 mg DAILY [facility]ULETTE Administration Prednisone 60 mg 12/25/19 22:00 12/26/19 21:09 Deltasone - PO 60 mg BID [facility]ULETTE Administration Pregabalin 150 mg 12/22/19 10:00 12/26/19 21:11 Lyrica - PO 150 mg BID [facility]ULE[facility]E Administration Quetiapine Fumarate 25 mg 12/23/19 22:00 12/26/19 21:14 Seroquel - PO 25 mg BID PAULETTE Administration Trazodone HCl 150 mg 12/22/19 01:39 12/26/19 21:10 Desyrel - PO 150 mg HS [facility]ULETTE Administration Zinc Sulfate 220 mg 12/22/19 10:00 12/26/19 21:13 Orazinc - PO 220 mg BID PAULETTE Administration ASSESSMENT/PLAN: 49yo M with PMHx of pre-diabetes, bipolar disorder, peripheral neuropathy, smoking hx (stopped 5 years ago), and chronic diarrhea being admitted for acute hypoxic respiratory failure likely 2/2 to COVID 19 pneumonitis (PCR ab not detected x2); also with JANNA. #Acute Hypoxic RF 2/2 to ?COVID19 Pneumonitis - improving COVID PCR not detected x2 less likely bacterial CAP CTA showing bilateral GGOs, negative for PE - initial and repeat COVID serologies were not detected - SpO2 goal >93% - currently sat 95% on NC - Vitamin C/D; Zinc - doxy 100 bid for anti-inflammtory properties - 6 mg IV push dexamethasone daily x 10 days, as per COVID 19 NIH guidelines - protonix PO 40 daily for GI ppx while on steroids - tylenol PRN for fever - continue trending inflammatory markers (CRP, LDH, ferritin, D-dimer) - f/u D-dimer; if > 2000, will give additional lovenox dose, as per day team (already received 60 mg lovenox in ED) - UA, legionella, strep, blood cx ordered - blood cx NGTD - CXR PRN - continue monitoring extent of pneumonitis #JANNA - resolving Likely 2/2 to COVID 19 Cr stable at 1.3 (baseline?) - UA, Urine lytes unremarkable - avoid nephrotoxic agents - d/c's fluids - monitor Cr #Anemia (likely Anemia of Chronic Disease given normal MVC) - Hgb initially downtrending, now stable at 10.3 - iron studies showing decreased iron 35 but TIBC and ferritin WNL - continue trending daily - transfuse if Hb < 7 - no acute signs of bleeding at this time #Pre-Diabetes Pt likely to be hyperglycemic on steroids, A1C 5.6 - BGM ACHS ISS Peripheral Neuropathy - continue home lyrica 150 bid #Bipolar Disorder - continue home trazadone 150 qhs - patient stated that he normally takes quetiapine 400 - started quetiapine 25 at nighttime and awaiting psych recs - monitor daily QTc - seen by psych consult - appreciated recs: continue current regimen with trazodone and quetiapine #PPX - DVT: enoxaparin - GI: pantoprazole #FEN -F - no standing fluids -E - monitor lytes; replete prn -N - low Na, diabetic diet #Dispo - admit to med-surg, may be discharge to home tomorrow Visit type - Emergency Visit Emergency Visit: Yes ED Registration Date: 12/21/19 Care time: The patient presented to the Emergency Department on the above date and was hospitalized for further evaluation of their emergent condition. - New Patient This patient is new to me today: No - Critical Care Critical Care patient: No ATTENDING PHYSICIAN STATEMENT I saw and evaluated the patient. I reviewed the resident's note and discussed the case with the resident. I agree with the resident's findings and plan as documented. SUBJECTIVE: OBJECTIVE: ASSESSMENT AND PLAN:
[2019-12-27 08:03] LABS: ALBUMIN 3.2 g/dl (3.4-5.0); BILIRUBIN,TOTAL 0.8 mg/dL (0.2-1); BLOOD UREA NITROGEN 19.2 mg/dL (7-18); CALCIUM 8.9 mg/dL (8.5-10.1); CREATININE 1.2 mg/dL (0.55-1.3); MAGNESIUM 2.3 mg/dL (1.8-2.4); PHOSPHOROUS 3.6 mg/dL (2.5-4.9); POTASSIUM 4.6 mmol/L (3.5-5.1); TOT PROT 6.5 g/dl (6.4-8.2)
[2019-12-27] MEDS: ZINC SULFATE 220 MG CAPSULE (FP) PO SCH ×2 (09:00→21:18)
[2019-12-27] MEDS: AMOX TR/POT CLAV 875MG/125MG TABLETS (FP) PO SCH ×2 (09:00→17:11)
[2019-12-27] MEDS: PREGABALIN 75 MG CAPSULE PO SCH ×2 (09:01→21:18)
[2019-12-27] MEDS: DOXYCYCLINE HYCLATE 100 MG CAPSULE PO SCH ×2 (09:01→17:11)
[2019-12-27] MEDS: predniSONE 20 MG TABLET (UD) PO SCH ×2 (09:01→21:18)
[2019-12-27] MEDS: ENOXAPARIN NA (PORCINE) 40 MG/0.4 ML DISP.SYRIN SQ SCH ×2 (09:01→21:18)
[2019-12-27] MEDS: PANTOPRAZOLE 40 MG TABLET PO SCH (09:01)
[2019-12-27] MEDS: CHOLECALCIFEROL (VIT D3) 1,000 UNIT (25 MCG) TABLET PO SCH (09:01)
[2019-12-27] MEDS: ASCORBIC ACID 500 MG TABLET (FP) PO SCH ×2 (09:02→21:19)
[2019-12-27] MEDS: QUEtiapine FUMARATE 25 MG TABLET PO SCH ×2 (09:02→21:19)
[2019-12-27] MEDS: BUDESONIDE/FORMETEROL FUMARATE 160/4.5 mcg INHALER IH SCH ×2 (09:02→21:19)
--- NOTE | 2019-12-27 09:45 | PN ---
Teaching Attending Note Name of Resident: Alejandra Barrett ATTENDING PHYSICIAN STATEMENT I saw and evaluated the patient. I reviewed the resident's note and discussed the case with the resident. I agree with the resident's findings and plan as documented. SUBJECTIVE: Patient's pre and post is 94 and 92 , but later of the day patient's saturation dropped to 88%. OBJECTIVE: Vital Signs Temperature 97.8 F 12/27/19 06:00 Pulse Rate 92 H 12/27/19 08:54 Respiratory Rate 20 12/27/19 06:00 Blood Pressure 123/76 12/27/19 06:00 O2 Sat by Pulse Oximetry (%) 94 L 12/27/19 08:54 PE: as per resident's note CBCD WBC 13.2 K/mm3 (4.0-10.0) H 12/27/19 06:25 RBC 3.09 M/mm3 (4.00-5.60) L 12/27/19 06:25 Hgb 10.0 GM/dL (11.7-16.9) L 12/27/19 06:25 Hct 30.9 % (35.4-49) L 12/27/19 06:25 MCV 100.1 fl (80-96) H 12/27/19 06:25 MCHC 32.4 g/dl (32.0-35.9) 12/27/19 06:25 RDW 17.7 % (11.9-15.9) H 12/27/19 06:25 Plt Count 307 K/MM3 (134-434) 12/27/19 06:25 MPV 9.4 fl (7.5-11.1) 12/27/19 06:25 CMP Sodium 139 mmol/L (136-145) 12/27/19 06:25 Potassium 4.6 mmol/L (3.5-5.1) 12/27/19 06:25 Chloride 106 mmol/L (98-107) 12/27/19 06:25 Carbon Dioxide 24 mmol/L (21-32) 12/27/19 06:25 Anion Gap 9 MMOL/L (8-16) 12/27/19 06:25 BUN 19.2 mg/dL (7-18) H 12/27/19 06:25 Creatinine 1.2 mg/dL (0.55-1.3) 12/27/19 06:25 Random Glucose 150 mg/dL (74-106) H 12/27/19 06:25 Calcium 8.9 mg/dL (8.5-10.1) 12/27/19 06:25 Total Bilirubin 0.8 mg/dL (0.2-1) 12/27/19 06:25 AST 8 U/L (15-37) L 12/27/19 06:25 ALT 22 U/L (13-61) 12/27/19 06:25 Alkaline Phosphatase 53 U/L (45-117) 12/27/19 06:25 Total Protein 6.5 g/dl (6.4-8.2) 12/27/19 06:25 Albumin 3.2 g/dl (3.4-5.0) L 12/27/19 06:25 CARDIAC ENZYMES Creatine Kinase 256 U/L (26-308) 12/22/19 05:35 Troponin I < 0.02 ng/ml (0.00-0.05) 12/22/19 05:35 Current Medications Generic Name Dose Route Start Last Admin Trade Name Freq PRN Reason Stop Dose Admin Acetaminophen 650 mg 12/22/19 01:50 12/26/19 21:14 Tylenol - PO 650 mg Q6H PRN Administration FEVER Amoxicillin/Clavulanate Potassium 1 tab 12/26/19 10:00 12/27/19 09:00 Augmentin - 875mg Tablet PO 1 tab BID@0800,1730 [facility] Administration Ascorbic Acid 500 mg 12/22/19 10:00 12/27/19 09:02 Vitamin C - PO 500 mg BID [facility] Administration Budesonide/Formoterol Fumarate 2 puff 12/22/19 13:00 12/27/19 09:02 Symbicort 160/4.5mcg - IH 2 puff BID [facility] Administration Cholecalciferol 2,000 unit 12/22/19 10:00 12/27/19 09:01 Vitamin D3 - PO 2,000 unit DAILY [facility] Administration Doxycycline Hyclate 100 mg 12/25/19 18:00 12/27/19 09:01 Vibramycin - PO 100 mg BID@1000,1800 [facility] Administration Enoxaparin Sodium 40 mg 12/22/19 22:00 12/27/19 09:01 Lovenox - SQ 40 mg BID [facility] Administration Insulin Aspart 1 vial 12/22/19 07:00 12/27/19 06:48 Novolog Vial Sliding Scale - SQ Not Given ACHS [facility] Protocol Pantoprazole Sodium 40 mg 12/22/19 10:00 12/27/19 09:01 Protonix - PO 40 mg DAILY [facility] Administration Prednisone 60 mg 12/25/19 22:00 12/27/19 09:01 Deltasone - PO 60 mg BID [facility] Administration Pregabalin 150 mg 12/22/19 10:00 12/27/19 09:01 Lyrica - PO 150 mg BID [facility] Administration Quetiapine Fumarate 25 mg 12/23/19 22:00 12/27/19 09:02 Seroquel - PO 25 mg BID [facility] Administration Trazodone HCl 150 mg 12/22/19 01:39 12/26/19 21:10 Desyrel - PO 150 mg HS [facility] Administration Zinc Sulfate 220 mg 12/22/19 10:00 12/27/19 09:00 Orazinc - PO 220 mg BID [facility] Administration Home Medications Medication Instructions Recorded Trazodone HCl 150 mg PO HS #30 tablet 05/12/19 Pregabalin [Lyrica -] 150 mg PO BID 12/21/19 CT of the chest: BL groundglass pulmoanry infiltrates are noted suspecious for covid 19 pneumonitis, trace bl pleural effusions are seen, no PE ASSESSMENT AND PLAN: This patient is a 49yom with PMHx of pre-diabetes, bipolar disorder, peripheral neuropathy, was admitted for acute hypoxic respiratory failure CT was done reported highly suspecious for COVID 19 pneumonitis #Acute Hypoxic Respiratory failure most likely due to COVID19 Pneumonitis, even though the test is negative x 2, highly suspecious of covid. CRP is trending down. On IV rocephin and doxy switched to oral abx augmentin and doxy as per ID, will continue to follow daily marker , on vit c/zinc/vit D. on po prednisone now s/p IV solu medrol, Lovenox, steroid inhaler. Pulm and ID on the case. pre and post ordered for am. #mild JANNA 1.2 --1.3 today #Normocytic mild Anemia will monitor, will do b12/Fa/to be ordered, iron studies as above #Peripheral Neuropathy: continue Lyrica home dose #Bipolar Disorder: as per psychiatrist :continue Seroquel 25 mg po bid and Trazadone 150 mg po hs s per psychiatrist DVT px: lovenox bid continue to trend markers plan was to dc patient home, but 02 saturation dropped to 88%, as per further discussion with Dr Ferrera to repeat pre and post and might be needing oxygen to go home with. pre and post in am possible will go home on oxygen if he gets discharged in am : discharge with prednisone taper dose Eliquis 5mg po bid for one month as per recommendations of Dr marroquin
[2019-12-27 10:08] LABS: ANISOCYTOSIS 1+; MACROCYTOSIS 1+; PLATELET ESTIMATE NORMAL
--- NOTE | 2019-12-27 11:15 | PN ---
Progress Note, Physician History of Present Illness: improving breathing better - Current Medication List Current Medications: Active Medications Acetaminophen (Tylenol -) 650 mg PO Q6H PRN PRN Reason: FEVER Last Admin: 12/26/19 21:14 Dose: 650 mg Documented by: Amoxicillin/Clavulanate Potassium (Augmentin - 875mg Tablet) 1 tab PO BID@0800,1730 [facility] Last Admin: 12/27/19 09:00 Dose: 1 tab Documented by: Ascorbic Acid (Vitamin C -) 500 mg PO BID [facility] Last Admin: 12/27/19 09:02 Dose: 500 mg Documented by: Budesonide/Formoterol Fumarate (Symbicort 160/4.5mcg -) 2 puff IH BID [facility] Last Admin: 12/27/19 09:02 Dose: 2 puff Documented by: Cholecalciferol (Vitamin D3 -) 2,000 unit PO DAILY [facility] Last Admin: 12/27/19 09:01 Dose: 2,000 unit Documented by: Doxycycline Hyclate (Vibramycin -) 100 mg PO BID@1000,1800 [facility] Last Admin: 12/27/19 09:01 Dose: 100 mg Documented by: Enoxaparin Sodium (Lovenox -) 40 mg SQ BID [facility] Last Admin: 12/27/19 09:01 Dose: 40 mg Documented by: Insulin Aspart (Novolog Vial Sliding Scale -) 1 vial SQ [facility]; Protocol Last Admin: 12/27/19 11:13 Dose: Not Given Documented by: Pantoprazole Sodium (Protonix -) 40 mg PO DAILY [facility] Last Admin: 12/27/19 09:01 Dose: 40 mg Documented by: Prednisone (Deltasone -) 60 mg PO BID [facility] Last Admin: 12/27/19 09:01 Dose: 60 mg Documented by: Pregabalin (Lyrica -) 150 mg PO BID [facility] Last Admin: 12/27/19 09:01 Dose: 150 mg Documented by: Quetiapine Fumarate (Seroquel -) 25 mg PO BID [facility] Last Admin: 12/27/19 09:02 Dose: 25 mg Documented by: Trazodone HCl (Desyrel -) 150 mg PO HS [facility] Last Admin: 12/26/19 21:10 Dose: 150 mg Documented by: Zinc Sulfate (Orazinc -) 220 mg PO BID [facility] Last Admin: 12/27/19 09:00 Dose: 220 mg Documented by: - Objective Vital Signs: Vital Signs Temperature 97.7 F 12/27/19 10:05 Pulse Rate 71 12/27/19 10:05 Respiratory Rate 12/27/19 10:05 Blood Pressure 127/77 12/27/19 10:05 O2 Sat by Pulse Oximetry (%) 94 L 12/27/19 10:05 Constitutional: Yes: No Distress, Calm Cardiovascular: Yes: S1, S2 Respiratory: Yes: Regular, CTA Bilaterally Gastrointestinal: Yes: Normal Bowel Sounds, Soft Musculoskeletal: Yes: WNL Extremities: Yes: WNL Neurological: Yes: Alert, Oriented Psychiatric: Yes: Alert, Oriented Labs: CBC, BMP 12/27/19 06:25 12/27/19 06:25 INR, PTT INR 1.20 (0.83-1.09) H 12/21/19 14:45 Fibrinogen > 500.0 mg/dL (238-498) H 12/23/19 06:04 Assessment/Plan 49 yo M with PMH of pre-diabetes, bipolar disorder, peripheral neuropathy, and chronic diarrhea being admitted for acute hypoxic respiratory failure likely 2/2 to COVID 19 pneumonitis; also with JANNA. #Acute Hypoxic RF 2/2 to COVID19 Pneumonitis #JANNA #Anemia (likely Anemia of Chronic Disease given normal MVC; Hb 10.9) #Pre-Diabetes Peripheral Neuropathy #Bipolar Disorder continue resp support rest as per the team
--- NOTE | 2019-12-27 15:23 | PN ---
Progress Note (short form) - Note Progress Note: Breathing slowly continues to improve. Still with some headache and nonproductive cough. No acute events overnight. Intake & Output 12/24/19 12/25/19 12/26/19 12/27/19 23:59 23:59 23:59 23:59 Intake Total 363 973 7523 250 Output Total 200 200 Balance 971 354 7060 250 Last Vital Signs Temp Pulse Resp BP Pulse Ox 97.7 F 71 20 127/77 94 L 12/27/19 10:05 12/27/19 10:05 12/27/19 10:05 12/27/19 10:05 12/27/19 10:05 Active Medications Acetaminophen (Tylenol -) 650 mg PO Q6H PRN PRN Reason: FEVER Last Admin: 12/26/19 21:14 Dose: 650 mg Documented by: Amoxicillin/Clavulanate Potassium (Augmentin - 875mg Tablet) 1 tab PO BID@0800,1730 [facility] Last Admin: 12/27/19 09:00 Dose: 1 tab Documented by: Ascorbic Acid (Vitamin C -) 500 mg PO BID [facility] Last Admin: 12/27/19 09:02 Dose: 500 mg Documented by: Budesonide/Formoterol Fumarate (Symbicort 160/4.5mcg -) 2 puff IH BID [facility] Last Admin: 12/27/19 09:02 Dose: 2 puff Documented by: Cholecalciferol (Vitamin D3 -) 2,000 unit PO DAILY [facility] Last Admin: 12/27/19 09:01 Dose: 2,000 unit Documented by: Doxycycline Hyclate (Vibramycin -) 100 mg PO BID@1000,1800 [facility] Last Admin: 12/27/19 09:01 Dose: 100 mg Documented by: Enoxaparin Sodium (Lovenox -) 40 mg SQ BID [facility] Last Admin: 12/27/19 09:01 Dose: 40 mg Documented by: Insulin Aspart (Novolog Vial Sliding Scale -) 1 vial SQ [facility]; Protocol Last Admin: 12/27/19 11:13 Dose: Not Given Documented by: Pantoprazole Sodium (Protonix -) 40 mg PO DAILY [facility] Last Admin: 12/27/19 09:01 Dose: 40 mg Documented by: Prednisone (Deltasone -) 60 mg PO BID [facility] Last Admin: 12/27/19 09:01 Dose: 60 mg Documented by: Pregabalin (Lyrica -) 150 mg PO BID [facility] Last Admin: 12/27/19 09:01 Dose: 150 mg Documented by: Quetiapine Fumarate (Seroquel -) 25 mg PO BID [facility] Last Admin: 12/27/19 09:02 Dose: 25 mg Documented by: Trazodone HCl (Desyrel -) 150 mg PO HS [facility] Last Admin: 12/26/19 21:10 Dose: 150 mg Documented by: Zinc Sulfate (Orazinc -) 220 mg PO BID [facility] Last Admin: 12/27/19 09:00 Dose: 220 mg Documented by: Gen: NAD Heart: RRR Lung: decreased breath sounds at the bases Abd: soft, nontender Ext: no edema Laboratory Results - last 24 hr 12/26/19 12/26/19 12/27/19 17:30 21:17 05:41 WBC RBC Hgb Hct MCV MCH MCHC RDW Plt Count MPV Absolute Neuts (auto) Neutrophils % Neutrophils % (Manual) Band Neutrophils % Lymphocytes % Lymphocytes % (Manual) Monocytes % Monocytes % (Manual) Eosinophils % Eosinophils % (Manual) Basophils % Basophils % (Manual) Myelocytes % (Man) Promyelocytes % (Man) Blast Cells % (Manual) Nucleated RBC % Metamyelocytes Hypochromia Platelet Estimate Polychromasia Poikilocytosis Anisocytosis Microcytosis Macrocytosis D-Dimer Sodium Potassium Chloride Carbon Dioxide Anion Gap BUN Creatinine Est GFR (CKD-EPI)AfAm Est GFR (CKD-EPI)NonAf POC Glucometer 181 157 159 Random Glucose Calcium Phosphorus Magnesium Ferritin Total Bilirubin AST ALT Alkaline Phosphatase LD Total C-Reactive Protein Total Protein Albumin 12/27/19 12/27/19 12/27/19 06:25 06:25 06:25 WBC 13.2 H RBC 3.09 L Hgb 10.0 L Hct 30.9 L MCV 100.1 H MCH 32.4 MCHC 32.4 RDW 17.7 H Plt Count 307 MPV 9.4 Absolute Neuts (auto) 10.5 H Neutrophils % 80.1 Neutrophils % (Manual) 82.5 Band Neutrophils % 1.0 Lymphocytes % 10.7 Lymphocytes % (Manual) 9.7 Monocytes % 8.7 Monocytes % (Manual) 6 Eosinophils % 0.2 D Eosinophils % (Manual) 1.0 Basophils % 0.3 Basophils % (Manual) 0.0 Myelocytes % (Man) 0 Promyelocytes % (Man) 0 Blast Cells % (Manual) 0 Nucleated RBC % 0 Metamyelocytes 0 Hypochromia 0 Platelet Estimate Normal Polychromasia 0 Poikilocytosis 1+ Anisocytosis 1+ Microcytosis 0 Macrocytosis 1+ D-Dimer 224 Sodium 139 Potassium 4.6 Chloride 106 Carbon Dioxide 24 Anion Gap 9 BUN 19.2 H Creatinine 1.2 Est GFR (CKD-EPI)AfAm 80.66 Est GFR (CKD-EPI)NonAf 69.59 POC Glucometer Random Glucose 150 H Calcium 8.9 Phosphorus 3.6 Magnesium 2.3 Ferritin 222.4 Total Bilirubin 0.8 AST 8 L ALT 22 Alkaline Phosphatase 53 LD Total 183 C-Reactive Protein 0.8 H Total Protein 6.5 Albumin 3.2 L 12/27/19 10:54 WBC RBC Hgb Hct MCV MCH MCHC RDW Plt Count MPV Absolute Neuts (auto) Neutrophils % Neutrophils % (Manual) Band Neutrophils % Lymphocytes % Lymphocytes % (Manual) Monocytes % Monocytes % (Manual) Eosinophils % Eosinophils % (Manual) Basophils % Basophils % (Manual) Myelocytes % (Man) Promyelocytes % (Man) Blast Cells % (Manual) Nucleated RBC % Metamyelocytes Hypochromia Platelet Estimate Polychromasia Poikilocytosis Anisocytosis Microcytosis Macrocytosis D-Dimer Sodium Potassium Chloride Carbon Dioxide Anion Gap BUN Creatinine Est GFR (CKD-EPI)AfAm Est GFR (CKD-EPI)NonAf POC Glucometer 131 Random Glucose Calcium Phosphorus Magnesium Ferritin Total Bilirubin AST ALT Alkaline Phosphatase LD Total C-Reactive Protein Total Protein Albumin A/P Acute Hypoxic Respiratory Failure Suspected COVID19 Pneumonia Bipolar Disorder GERD - Supplemental O2 as needed - prednisone - continue anticoagulation - continue antibiotics - pulse oximetry monitoring Dr Crawford
[2019-12-27] MEDS: traZODone HCL 50 MG TABLET (FP) PO SCH (21:18)
[2019-12-28] MEDS: INSULIN SLIDING SCALE (NOVOLOG) 1 VIAL SQ SCH ×2 (06:03→12:05)
[2019-12-28 06:55] LABS: BASO % 0.2 % (0-2.0); HEMATOCRIT 29.9 % (35.4-49); HEMOGLOBIN 9.7 GM/dL (11.7-16.9); LYMPH % 10.4 % (8-40); MCH 32.8 pg (25.7-33.7); MCHC 32.4 g/dl (32.0-35.9); MEAN CELL VOLUME 101.2 fl (80-96); MONO % 7.6 % (3.8-10.2); NEUT % 81.8 % (42.8-82.8); PLATELET COUNT 339 K/MM3 (134-434); RBC 2.96 M/mm3 (4.00-5.60); RDW 17.1 % (11.9-15.9); WHITE BLOOD COUNT 16.6 K/mm3 (4.0-10.0)
--- NOTE | 2019-12-28 08:03 | PN ---
Progress Note, Physician History of Present Illness: pulmonary alert,feeling better less dyspneic,+ cough - Current Medication List Current Medications: Active Medications Acetaminophen (Tylenol -) 650 mg PO Q6H PRN PRN Reason: FEVER Last Admin: 12/26/19 21:14 Dose: 650 mg Documented by: Amoxicillin/Clavulanate Potassium (Augmentin - 875mg Tablet) 1 tab PO BID@0800,1730 [facility] Last Admin: 12/27/19 17:11 Dose: 1 tab Documented by: Ascorbic Acid (Vitamin C -) 500 mg PO BID [facility] Last Admin: 12/27/19 21:19 Dose: 500 mg Documented by: Budesonide/Formoterol Fumarate (Symbicort 160/4.5mcg -) 2 puff IH BID [facility] Last Admin: 12/27/19 21:19 Dose: 2 puff Documented by: Cholecalciferol (Vitamin D3 -) 2,000 unit PO DAILY [facility] Last Admin: 12/27/19 09:01 Dose: 2,000 unit Documented by: Doxycycline Hyclate (Vibramycin -) 100 mg PO BID@1000,1800 [facility] Last Admin: 12/27/19 17:11 Dose: 100 mg Documented by: Enoxaparin Sodium (Lovenox -) 40 mg SQ BID [facility] Last Admin: 12/27/19 21:18 Dose: 40 mg Documented by: Insulin Aspart (Novolog Vial Sliding Scale -) 1 vial SQ [facility]; Protocol Last Admin: 12/28/19 06:03 Dose: Not Given Documented by: Pantoprazole Sodium (Protonix -) 40 mg PO DAILY [facility] Last Admin: 12/27/19 09:01 Dose: 40 mg Documented by: Prednisone (Deltasone -) 60 mg PO BID [facility] Last Admin: 12/27/19 21:18 Dose: 60 mg Documented by: Pregabalin (Lyrica -) 150 mg PO BID [facility] Last Admin: 12/27/19 21:18 Dose: 150 mg Documented by: Quetiapine Fumarate (Seroquel -) 25 mg PO BID [facility] Last Admin: 12/27/19 21:19 Dose: 25 mg Documented by: Trazodone HCl (Desyrel -) 150 mg PO HS [facility] Last Admin: 12/27/19 21:18 Dose: 150 mg Documented by: Zinc Sulfate (Orazinc -) 220 mg PO BID [facility] Last Admin: 12/27/19 21:18 Dose: 220 mg Documented by: - Objective Vital Signs: Vital Signs Temperature 98.3 F 12/28/19 05:20 Pulse Rate 81 12/28/19 05:20 Respiratory Rate 20 12/28/19 05:20 Blood Pressure 128/69 12/28/19 05:20 O2 Sat by Pulse Oximetry (%) 90 L 12/28/19 01:30 Constitutional: Yes: Well Nourished, Calm Eyes: Yes: WNL HENT: Yes: WNL Neck: Yes: WNL Cardiovascular: Yes: Regular Rate and Rhythm, S1, S2 Respiratory: Yes: Diminished Gastrointestinal: Yes: Normal Bowel Sounds, Soft Extremities: Yes: WNL Edema: No Labs: CBC, BMP 12/28/19 05:21 INR, PTT INR 1.20 (0.83-1.09) H 12/21/19 14:45 Fibrinogen > 500.0 mg/dL (238-498) H 12/23/19 06:04 Laboratory Tests 12/28/19 05:21 Ferritin 238.3 C-Reactive Protein 0.4 H Problem List - Problems (1) Suspected COVID-19 virus infection Code(s): Z20.828 - CONTACT W AND EXPOSURE TO OTH VIRAL COMMUNICABLE DISEASES (2) Hypoxia Code(s): R09.02 - HYPOXEMIA (3) COVID-19 determined by clinical diagnostic criteria Code(s): U07.1 - COVID POSITIVE Assessment/Plan IMP ACUTE HYPOXEMIC RESPIRATORY FAILURE IMPROVING SUSPECTED COVID 19 PNEUMONIA PRE DM BIPOLAR PERIPHERAL NEUROPATHY GERD PLAN SUPPLEMENTAL O2 INHALED BRONCHODILATORS/STEROIDS PREDNISONE LOVENOX 40 BID MONITOR LYTES, MONITOR INFLAMMATORY MARKERS F/U CHEST X-RAYS DR OVERTON Problem List - Problems (1) Suspected COVID-19 virus infection Code(s): Z20.828 - CONTACT W AND EXPOSURE TO OTH VIRAL COMMUNICABLE DISEASES (2) Hypoxia Code(s): R09.02 - HYPOXEMIA
[2019-12-28 08:09] LABS: ALBUMIN 3.1 g/dl (3.4-5.0); BILIRUBIN,TOTAL 1.2 mg/dL (0.2-1); BLOOD UREA NITROGEN 23.7 mg/dL (7-18); CALCIUM 8.6 mg/dL (8.5-10.1); CREATININE 1.2 mg/dL (0.55-1.3); MAGNESIUM 2.3 mg/dL (1.8-2.4); PHOSPHOROUS 4.3 mg/dL (2.5-4.9); POTASSIUM 4.5 mmol/L (3.5-5.1); TOT PROT 6.2 g/dl (6.4-8.2)
[2019-12-28] MEDS: PREGABALIN 75 MG CAPSULE PO SCH (09:10)
[2019-12-28] MEDS: AMOX TR/POT CLAV 875MG/125MG TABLETS (FP) PO SCH (09:10)
[2019-12-28] MEDS: DOXYCYCLINE HYCLATE 100 MG CAPSULE PO SCH (09:10)
[2019-12-28] MEDS: ZINC SULFATE 220 MG CAPSULE (FP) PO SCH (09:10)
[2019-12-28] MEDS: CHOLECALCIFEROL (VIT D3) 1,000 UNIT (25 MCG) TABLET PO SCH (09:10)
[2019-12-28] MEDS: ASCORBIC ACID 500 MG TABLET (FP) PO SCH (09:11)
[2019-12-28] MEDS: PANTOPRAZOLE 40 MG TABLET PO SCH (09:11)
[2019-12-28] MEDS: predniSONE 20 MG TABLET (UD) PO SCH (09:11)
[2019-12-28] MEDS: ENOXAPARIN NA (PORCINE) 40 MG/0.4 ML DISP.SYRIN SQ SCH (09:11)
[2019-12-28] MEDS: QUEtiapine FUMARATE 25 MG TABLET PO SCH (09:12)
[2019-12-28] MEDS: BUDESONIDE/FORMETEROL FUMARATE 160/4.5 mcg INHALER IH SCH (09:12)
[2019-12-28 10:29] LABS: ANISOCYTOSIS 1+; HELMET CELLS 1+; MACROCYTOSIS 1+; PLATELET ESTIMATE NORMAL
[2019-12-28] MEDS ORDERED: INSULIN (NOVOLOG) ASPART 100 UNITS/ML 10ML VIAL ONE (11:49)
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
--- NOTE | 2019-12-28 14:18 | PN ---
Teaching Attending Note Name of Resident: Alejandra Barrett ATTENDING PHYSICIAN STATEMENT I saw and evaluated the patient. I reviewed the resident's note and discussed the case with the resident. I agree with the resident's findings and plan as documented. SUBJECTIVE: patient feels well, has no complaints wants to go home OBJECTIVE: Vital Signs Period Temp Pulse Resp BP Sys/Moreno Pulse Ox Last 24 Hr 97.8 F-98.8 F 78-94 20-20 127-142/69-87 90-95 GENERAL: Awake, alert, and fully oriented, in no acute distress. HEAD: Normal with no signs of trauma. EYES: Pupils equal, round and reactive to light, extraocular movements intact, sclera anicteric, conjunctiva clear. No lid lag. EARS, NOSE, THROAT: Ears normal, nares patent, oropharynx clear without exudates. Moist mucous membranes. NECK: Normal range of motion, supple without lymphadenopathy, JVD, or masses. LUNGS: Breath sounds equal, clear to auscultation bilaterally. No wheezes, and no crackles. No accessory muscle use. HEART: Regular rate and rhythm, normal S1 and S2 without murmur, rub or gallop. ABDOMEN: Soft, nontender, not distended, normoactive bowel sounds, no guarding, no rebound, no masses. No hepatomegaly or splenomegaly. MUSCULOSKELETAL: Normal range of motion at all joints. No bony deformities or tenderness. No CVA tenderness. UPPER EXTREMITIES: 2+ pulses, warm, well-perfused. No cyanosis. No clubbing. Cap refill <2 seconds. No peripheral edema. LOWER EXTREMITIES: 2+ pulses, warm, well-perfused. No calf tenderness. No peripheral edema. NEUROLOGICAL: Cranial nerves II-XII intact. Normal speech. Normal gait. PSYCHIATRIC: Cooperative. Good eye contact. Appropriate mood and affect. SKIN: Warm, dry, normal turgor, no rashes or lesions noted. ASSESSMENT AND PLAN: 49 y/o M who presents with shortness of breath thought to be due to COVID 19 Patient feels well this morning off O2 COVID has been negative x2 on this admission Plan to complete 10 days of Abx; complete steroid taper Will discharge home at this time please see discharge summary for additional information
[2019-12-28 14:53] VITALS: BP 132/72; PULSE 75; TEMP 98.2
== END 2019-12-28 16:34 | disposition home or self-care (01) | DRG 189 ==
LOC: JER 15:35 → JERBED 19:50 → J4W 12-22 15:30
PROVIDERS: ADMIT Internal Medicine Pulmonary Disease; ATTEND Internal Medicine
DX: J96.01 Acute respiratory failure with hypoxia (principal); J12.89 Other viral pneumonia; N17.9 Acute kidney failure, unspecified; R73.03 Prediabetes; Z87.891 Personal history of nicotine dependence; F31.9 Bipolar disorder, unspecified; G62.9 Polyneuropathy, unspecified; K21.9 Gastro-esophageal reflux disease without esophagitis; I95.9 Hypotension, unspecified; E66.3 Overweight; Z68.33 Body mass index [BMI] 33.0-33.9, adult; D64.9 Anemia, unspecified; D63.8 Anemia in other chronic diseases classified elsewhere
CPT/HCPCS: 36415; 71045-TC-FY; 71275-TC; 80053; 81003; 82248; 82308; 82550; 82553; 82607; 82728; 82746; 82803; 82962; 83036; 83540; 83550; 83615; 83735; 83880; 84100; 84300; 84443; 84484; 85025; 85379; 85384; 85610; 85651; 85730; 86140; 86769; 87040; 93005; 93010; 94761; 99291; J0131; J1100; Q9967; U0003

== ENCOUNTER 2020-08-05 12:48 | Emergency (ER) | payer BC ==
[2020-08-05 13:03] VITALS: BP 100/63; PULSE 67; TEMP 99.2; BMI 33.0
[2020-08-05] MEDS ORDERED: KETOROLAC TROMETHAMINE 60 MG/2 ML VIAL IM ONE (13:17)
[2020-08-05] MEDS ORDERED: KETOROLAC TROMETHAMINE 60 MG/2 ML VIAL ONE (13:18)
== END 2020-08-05 14:22 | disposition home or self-care (01) ==
LOC: JERFT 12:48 → JER 12:48 → JERFT 14:22
PROC: 3E0233Z Introduction of Anti-inflammatory into Muscle, Percutaneous Approach (ICD-10-PCS; principal; 2020-08-05)
DX: M25.551 Pain in right hip (principal)
CPT/HCPCS: 73523-TC-FY; 99284-25

== ENCOUNTER 2020-09-12 09:00 | Inpatient (IN) | payer BC ==
[2020-09-06 14:08] VITALS: BMI 30.3
[2020-09-12] MEDS ORDERED: TRANEXAMIC ACID 1000 MG/10 ML VIAL IVPUSH ONE (09:22)
[2020-09-12] MEDS ORDERED: CEFAZOLIN 3 GM in DEXTROSE 5%-WATER - 100 ML IVPB ONE (09:22)
[2020-09-12] MEDS ORDERED: MAG HYDROX/AL HYDROX/SIMETH 30 ML UNIT-DOSE CUP PO PRN (09:35)
[2020-09-12] MEDS ORDERED: MAGNESIUM HYDROX 2400MG/30ML ORAL SUSPENSION 30 ML CUP PO PRN (09:35)
[2020-09-12] MEDS ORDERED: ONDANSETRON 4 MG/2 ML VIAL IVPUSH PRN ×2 (09:35→15:19)
[2020-09-12] MEDS ORDERED: LACTATED RINGERS SOLUTION 1,000 ML IV SCH (09:45)
[2020-09-12] MEDS ORDERED: PREGABALIN 300 MG PO SCH (10:00)
[2020-09-12] MEDS: CELECOXIB 200 MG CAPSULE PO ONE ×2 (12:30→15:47)
[2020-09-12] MEDS ORDERED: BUPIVACAINE HCL/PF 0.5% (5 MG/ML) 30 ML VIAL IJ ONE (12:31)
[2020-09-12] MEDS ORDERED: MIDAZOLAM HCL 2 MG/2 ML SINGLE DOSE VIAL ONE ×2 (12:31→13:58)
[2020-09-12] MEDS ORDERED: VANCOMYCIN 1,000 MG VIAL (RESTRICTED TO ID ONLY) ONE (12:50)
[2020-09-12] MEDS ORDERED: ceFAZolin SODIUM 1 GM VIAL ONE (12:50)
[2020-09-12] MEDS ORDERED: ePHEDrine SULFATE 50 MG/1 ML AMPULE ONE (13:31)
[2020-09-12] MEDS ORDERED: VANCOMYCIN 1,000 MG VIAL (RESTRICTED TO ID ONLY) IVPB ONE (14:05)
[2020-09-12] MEDS ORDERED: oxyCODONE HCL 5 MG TABLET PO PRN (15:19)
[2020-09-12] MEDS ORDERED: PROMETHAZINE HCL 25 MG/1 ML VIAL IVPUSH PRN (15:19)
[2020-09-12] MEDS: SENNOSIDES/DOCUSATE COMBO (SENNA PLUS) TABLET (UD) PO SCH ×2 (15:48→21:18)
[2020-09-12] MEDS: MULTIVITAMINS (DAILY MVI) TABLET (FP) PO SCH (15:48)
[2020-09-12] MEDS: PANTOPRAZOLE 40 MG TABLET PO SCH (15:48)
[2020-09-12] MEDS: CEFAZOLIN 3 GM in DEXTROSE 5%-WATER - 100 ML IVPB SCH (17:34)
[2020-09-12] MEDS: oxyCODONE HCL 5 MG TABLET PO PRN (19:49)
[2020-09-12] MEDS: PREGABALIN 50 MG CAPSULE PO SCH (21:18)
[2020-09-12] MEDS: traZODone HCL 50 MG TABLET (FP) PO SCH (21:18)
[2020-09-12] MEDS: QUEtiapine FUMARATE 25 MG TABLET PO SCH (21:18)
[2020-09-12] MEDS: KETOROLAC TROMETHAMINE 30 MG/1 ML VIAL IVPUSH SCH ×2 (21:20→22:29)
[2020-09-12] MEDS ORDERED: PREGABALIN 50 MG CAPSULE PO SCH (22:00)
[2020-09-12] MEDS ORDERED: ACETAMINOPHEN 1000 MG/100 ML VIAL (NON FORMULARY) IVPB ONE (22:30)
[2020-09-12] MEDS: MORPHINE SULFATE 2 MG/ML VIAL IVPUSH PRN (22:46)
[2020-09-13] MEDS: CEFAZOLIN 3 GM in DEXTROSE 5%-WATER - 100 ML IVPB SCH (02:31)
[2020-09-13] MEDS ORDERED: ACETAMINOPHEN 1000 MG/100 ML VIAL (NON FORMULARY) IVPB ONE (03:45)
[2020-09-13] MEDS: KETOROLAC TROMETHAMINE 30 MG/1 ML VIAL IVPUSH SCH ×3 (05:47→17:33)
[2020-09-13] MEDS: ASPIRIN 325 MG TABLET PO SCH (07:52)
[2020-09-13] MEDS: oxyCODONE HCL 5 MG TABLET PO PRN ×4 (07:53→17:35)
[2020-09-13 08:02] LABS: HEMATOCRIT 27.1 % (35.4-49); MCH 31.4 pg (25.7-33.7); MCHC 33.3 g/dl (32.0-35.9); MEAN CELL VOLUME 94.2 fl (80-96); MEAN PLT VOLUME 9.3 fl (7.5-11.1); PLATELET COUNT 186 K/MM3 (134-434); RBC 2.87 M/mm3 (4.00-5.60); RDW 15.1 % (11.9-15.9); WHITE BLOOD COUNT 7.9 K/mm3 (4.0-10.8)
[2020-09-13] MEDS: SENNOSIDES/DOCUSATE COMBO (SENNA PLUS) TABLET (UD) PO SCH ×2 (10:54→22:25)
[2020-09-13] MEDS: MULTIVITAMINS (DAILY MVI) TABLET (FP) PO SCH (10:55)
[2020-09-13] MEDS: PANTOPRAZOLE 40 MG TABLET PO SCH (10:55)
[2020-09-13] MEDS: MORPHINE SULFATE 2 MG/ML VIAL IVPUSH PRN ×4 (11:00→22:36)
[2020-09-13] MEDS: PREGABALIN 50 MG CAPSULE PO SCH ×3 (12:00→22:26)
[2020-09-13] MEDS: QUEtiapine FUMARATE 25 MG TABLET PO SCH (22:25)
[2020-09-13] MEDS: traZODone HCL 50 MG TABLET (FP) PO SCH (22:26)
[2020-09-14 07:49] LABS: HEMATOCRIT 24.9 % (35.4-49); HEMOGLOBIN 8.3 GM/dl (11.7-16.9); MCH 31.4 pg (25.7-33.7); MCHC 33.2 g/dl (32.0-35.9); MEAN CELL VOLUME 94.3 fl (80-96); MEAN PLT VOLUME 9.1 fl (7.5-11.1); PLATELET COUNT 163 K/MM3 (134-434); RBC 2.64 M/mm3 (4.00-5.60); RDW 16.2 % (11.9-15.9)
[2020-09-14] MEDS: ACETAMINOPHEN 325 MG TABLET (FP) PO PRN ×2 (08:19→22:32)
[2020-09-14] MEDS ORDERED: SODIUM CHLORIDE 1,000 ML IV STA ×2 (10:17→11:13)
[2020-09-14] MEDS ORDERED: PIPERACILLIN/TAZOB 3.375 GM 3.375 GM in DEXTROSE 5%-WATER - 50 ML IVPB SCH (11:15)
[2020-09-14] MEDS ORDERED: VANCOMYCIN HCL 1,500 MG in DEXTROSE 5%-WATER - 250 ML IVPB SCH (11:15)
[2020-09-14 11:44] LABS: BASO % 0.6 % (0-2.0); EOS % 0.2 % (0-4.5); HEMATOCRIT 24.8 % (35.4-49); HEMOGLOBIN 8.3 GM/dl (11.7-16.9); LYMPH % 6.4 % (8-40); MCH 31.4 pg (25.7-33.7); MCHC 33.4 g/dl (32.0-35.9); MEAN CELL VOLUME 93.9 fl (80-96); MEAN PLT VOLUME 9.1 fl (7.5-11.1); MONO % 6.2 % (3.8-10.2); NEUT % 86.6 % (42.8-82.8); PLATELET COUNT 170 K/MM3 (134-434); RBC 2.64 M/mm3 (4.00-5.60); RDW 16.3 % (11.9-15.9); WHITE BLOOD COUNT 11.6 K/mm3 (4.0-10.8)
[2020-09-14 11:57] LABS: ALBUMIN 2.6 g/dl (3.4-5.0); CREATININE 1.1 mg/dl (0.55-1.3); MAGNESIUM 1.8 mg/dL (1.8-2.4); TOT PROT 5.1 g/dl (6.4-8.2)
[2020-09-14] MEDS: MULTIVITAMINS (DAILY MVI) TABLET (FP) PO SCH (12:13)
[2020-09-14] MEDS: PREGABALIN 50 MG CAPSULE PO SCH (12:14)
[2020-09-14] MEDS: SENNOSIDES/DOCUSATE COMBO (SENNA PLUS) TABLET (UD) PO SCH ×2 (12:14→23:19)
[2020-09-14] MEDS: ASPIRIN 325 MG TABLET PO SCH (12:14)
[2020-09-14] MEDS: PANTOPRAZOLE 40 MG TABLET PO SCH (12:14)
[2020-09-14] MEDS: SODIUM CHLORIDE 1,000 ML IV SCH (12:30)
[2020-09-14] MEDS: VANCOMYCIN HCL 1,500 MG in DEXTROSE 5%-WATER - 250 ML IVPB SCH (13:00)
[2020-09-14] MEDS: PIPERACILLIN/TAZOB 3.375 GM 3.375 GM in DEXTROSE 5%-WATER - 50 ML IVPB SCH ×2 (14:32→21:33)
[2020-09-14] MEDS ORDERED: PIPERACILLIN/TAZOBACTAM 3.375 GM VIAL IVPB ONE ×2 (14:33→20:51)
[2020-09-14] MEDS ORDERED: DEXTROSE 5%-WATER - 50 ML IVPB ONE ×2 (14:33→20:52)
[2020-09-14] MEDS ORDERED: PT OWN MED DRAWER 7, Y5N ONE (21:18)
[2020-09-14] MEDS: oxyCODONE HCL 5 MG TABLET PO PRN (22:31)
[2020-09-14] MEDS: traZODone HCL 50 MG TABLET (FP) PO SCH (23:20)
[2020-09-14] MEDS: QUEtiapine FUMARATE 25 MG TABLET PO SCH (23:21)
[2020-09-15] MEDS: VANCOMYCIN HCL 1,500 MG in DEXTROSE 5%-WATER - 250 ML IVPB SCH (01:12)
[2020-09-15] MEDS ORDERED: PIPERACILLIN/TAZOBACTAM 3.375 GM VIAL IVPB ONE ×3 (01:18→17:08)
[2020-09-15] MEDS ORDERED: DEXTROSE 5%-WATER - 50 ML IVPB ONE ×3 (01:19→17:08)
[2020-09-15] MEDS: PIPERACILLIN/TAZOB 3.375 GM 3.375 GM in DEXTROSE 5%-WATER - 50 ML IVPB SCH ×3 (06:18→17:46)
[2020-09-15 08:13] LABS: EOS % 2.4 % (0-4.5); HEMATOCRIT 23.8 % (35.4-49); HEMOGLOBIN 8.1 GM/dl (11.7-16.9); LYMPH % 17.9 % (8-40); MCH 31.9 pg (25.7-33.7); MCHC 33.9 g/dl (32.0-35.9); MEAN PLT VOLUME 9.4 fl (7.5-11.1); MONO % 10.2 % (3.8-10.2); NEUT % 68.5 % (42.8-82.8); PLATELET COUNT 168 K/MM3 (134-434); RBC 2.53 M/mm3 (4.00-5.60); RDW 16.8 % (11.9-15.9); WHITE BLOOD COUNT 8.8 K/mm3 (4.0-10.8)
[2020-09-15 08:16] LABS: ALBUMIN 2.5 g/dl (3.4-5.0); BILIRUBIN,TOTAL 2.6 mg/dl (0.2-1); CALCIUM 7.9 mg/dl (8.5-10)
[2020-09-15] MEDS: ASPIRIN 325 MG TABLET PO SCH (10:51)
[2020-09-15] MEDS: SENNOSIDES/DOCUSATE COMBO (SENNA PLUS) TABLET (UD) PO SCH ×2 (10:51→21:22)
[2020-09-15] MEDS: MULTIVITAMINS (DAILY MVI) TABLET (FP) PO SCH (10:51)
[2020-09-15] MEDS: PREGABALIN 50 MG CAPSULE PO SCH ×2 (10:51→21:21)
[2020-09-15] MEDS: PANTOPRAZOLE 40 MG TABLET PO SCH (10:51)
[2020-09-15] MEDS: oxyCODONE HCL 5 MG TABLET PO PRN (10:52)
[2020-09-15] MEDS ORDERED: VANCOMYCIN/WATER BAGS 1,250 MG/250 ML BAG IVPB SCH (11:15)
[2020-09-15] MEDS: SODIUM CHLORIDE 1,000 ML IV SCH (11:23)
[2020-09-15] MEDS: VANCOMYCIN HCL 1,250 MG in SODIUM CHLORIDE 250 ML IVPB SCH ×2 (12:15→23:10)
[2020-09-15] MEDS: traZODone HCL 100 MG TABLET (FP) PO SCH (21:22)
[2020-09-15] MEDS: QUEtiapine FUMARATE 100 MG TABLET (FP) PO SCH (21:22)
[2020-09-15] MEDS: MORPHINE SULFATE 2 MG/ML VIAL IVPUSH PRN (21:48)
[2020-09-15] MEDS ORDERED: PT OWN MED DRAWER 7, Y5N ONE (22:57)
[2020-09-16] MEDS ORDERED: PIPERACILLIN/TAZOBACTAM 3.375 GM VIAL IVPB ONE ×3 (01:10→17:02)
[2020-09-16] MEDS ORDERED: DEXTROSE 5%-WATER - 50 ML IVPB ONE ×3 (01:11→17:02)
[2020-09-16] MEDS: PIPERACILLIN/TAZOB 3.375 GM 3.375 GM in DEXTROSE 5%-WATER - 50 ML IVPB SCH ×3 (01:15→17:36)
[2020-09-16 08:15] LABS: BASO % 0.1 % (0-2.0); EOS % 2.1 % (0-4.5); MCH 32.8 pg (25.7-33.7); MCHC 34.8 g/dl (32.0-35.9); MEAN CELL VOLUME 94.4 fl (80-96); MEAN PLT VOLUME 9.1 fl (7.5-11.1); MONO % 9.7 % (3.8-10.2); NEUT % 70.1 % (42.8-82.8); PLATELET COUNT 196 K/MM3 (134-434); RBC 2.44 M/mm3 (4.00-5.60)
[2020-09-16 08:20] LABS: ALBUMIN 2.5 g/dl (3.4-5.0); BILIRUBIN,TOTAL 1.8 mg/dl (0.2-1); CALCIUM 8.1 mg/dl (8.5-10); MAGNESIUM 2.1 mg/dL (1.8-2.4); TOT PROT 5.1 g/dl (6.4-8.2)
[2020-09-16] MEDS: PREGABALIN 50 MG CAPSULE PO SCH ×2 (10:11→22:14)
[2020-09-16] MEDS: SENNOSIDES/DOCUSATE COMBO (SENNA PLUS) TABLET (UD) PO SCH ×2 (10:11→22:11)
[2020-09-16] MEDS: ASPIRIN 325 MG TABLET PO SCH (10:12)
[2020-09-16] MEDS: PANTOPRAZOLE 40 MG TABLET PO SCH (10:12)
[2020-09-16] MEDS: MULTIVITAMINS (DAILY MVI) TABLET (FP) PO SCH (10:12)
[2020-09-16] MEDS ORDERED: PT OWN MED DRAWER 7, Y5N ONE ×2 (11:45→11:52)
[2020-09-16] MEDS: VANCOMYCIN HCL 1,250 MG in SODIUM CHLORIDE 250 ML IVPB SCH (12:00)
[2020-09-16] MEDS: SODIUM CHLORIDE 1,000 ML IV SCH ×2 (12:00→16:00)
[2020-09-16] MEDS: ACETAMINOPHEN 325 MG TABLET (FP) PO PRN ×2 (17:37→23:30)
[2020-09-16] MEDS: QUEtiapine FUMARATE 100 MG TABLET (FP) PO SCH (22:14)
[2020-09-16] MEDS: traZODone HCL 100 MG TABLET (FP) PO SCH (22:21)
[2020-09-17] MEDS ORDERED: PIPERACILLIN/TAZOBACTAM 3.375 GM VIAL IVPB ONE ×4 (01:00→23:28)
[2020-09-17] MEDS ORDERED: PT OWN MED DRAWER 7, Y5N ONE ×2 (01:00→13:07)
[2020-09-17] MEDS ORDERED: DEXTROSE 5%-WATER - 50 ML IVPB ONE ×3 (01:01→18:43)
[2020-09-17] MEDS: VANCOMYCIN HCL 1,250 MG in SODIUM CHLORIDE 250 ML IVPB SCH ×3 (01:05→23:39)
[2020-09-17] MEDS: PIPERACILLIN/TAZOB 3.375 GM 3.375 GM in DEXTROSE 5%-WATER - 50 ML IVPB SCH ×3 (02:37→18:30)
[2020-09-17 08:16] LABS: BASO % 0.1 % (0-2.0); EOS % 2.9 % (0-4.5); HEMATOCRIT 23.3 % (35.4-49); HEMOGLOBIN 7.9 GM/dl (11.7-16.9); LYMPH % 22.6 % (8-40); MCH 32.5 pg (25.7-33.7); MCHC 34.1 g/dl (32.0-35.9); MEAN CELL VOLUME 95.2 fl (80-96); MEAN PLT VOLUME 9.1 fl (7.5-11.1); MONO % 10.7 % (3.8-10.2); NEUT % 63.7 % (42.8-82.8); PLATELET COUNT 227 K/MM3 (134-434); RBC 2.44 M/mm3 (4.00-5.60); RDW 15.9 % (11.9-15.9); WHITE BLOOD COUNT 7.7 K/mm3 (4.0-10.8)
[2020-09-17 08:39] LABS: ALBUMIN 2.5 g/dl (3.4-5.0); BILIRUBIN,TOTAL 1.6 mg/dl (0.2-1); CALCIUM 8.2 mg/dl (8.5-10); MAGNESIUM 2.1 mg/dL (1.8-2.4); TOT PROT 5.1 g/dl (6.4-8.2)
[2020-09-17] MEDS: ASPIRIN 325 MG TABLET PO SCH (09:05)
[2020-09-17] MEDS: SENNOSIDES/DOCUSATE COMBO (SENNA PLUS) TABLET (UD) PO SCH ×2 (10:33→21:14)
[2020-09-17] MEDS: PANTOPRAZOLE 40 MG TABLET PO SCH (10:33)
[2020-09-17] MEDS: MULTIVITAMINS (DAILY MVI) TABLET (FP) PO SCH (10:33)
[2020-09-17] MEDS: PREGABALIN 50 MG CAPSULE PO SCH ×2 (10:33→21:13)
[2020-09-17] MEDS ORDERED: REFRIGERATED ANITBIOTICS ONE (13:06)
[2020-09-17] MEDS: SODIUM CHLORIDE 1,000 ML IV SCH (18:27)
[2020-09-17] MEDS: ACETAMINOPHEN 325 MG TABLET (FP) PO PRN (20:01)
[2020-09-17] MEDS ORDERED: oxyCODONE HCL 5 MG TABLET PO PRN (20:20)
[2020-09-17] MEDS: oxyCODONE HCL 5 MG TABLET PO PRN (20:29)
[2020-09-17] MEDS: traZODone HCL 100 MG TABLET (FP) PO SCH (21:13)
[2020-09-17] MEDS: QUEtiapine FUMARATE 100 MG TABLET (FP) PO SCH (21:14)
[2020-09-18] MEDS: PIPERACILLIN/TAZOB 3.375 GM 3.375 GM in DEXTROSE 5%-WATER - 50 ML IVPB SCH (01:23)
[2020-09-18 06:04] VITALS: TEMP 98.5
[2020-09-18 08:47] VITALS: BP 107/54; PULSE 92
[2020-09-18] MEDS: PREGABALIN 50 MG CAPSULE PO SCH ×2 (08:47→10:19)
[2020-09-18] MEDS: oxyCODONE HCL 5 MG TABLET PO PRN (08:48)
[2020-09-18] MEDS ORDERED: DEXTROSE 5%-WATER - 50 ML IVPB ONE (09:10)
[2020-09-18] MEDS ORDERED: PIPERACILLIN/TAZOBACTAM 3.375 GM VIAL IVPB ONE (09:10)
[2020-09-18] MEDS: PANTOPRAZOLE 40 MG TABLET PO SCH (09:15)
[2020-09-18] MEDS: MULTIVITAMINS (DAILY MVI) TABLET (FP) PO SCH (09:15)
[2020-09-18] MEDS: SENNOSIDES/DOCUSATE COMBO (SENNA PLUS) TABLET (UD) PO SCH (09:15)
[2020-09-18] MEDS: ASPIRIN 325 MG TABLET PO SCH (09:15)
[2020-09-18] MEDS ORDERED: AMOX TR/POT CLAV 875MG/125MG TABLETS (FP) PO SCH ×2 (10:15→17:30)
== END 2020-09-18 13:26 | DRG 469 ==
LOC: FM/S 12:02
PROVIDERS: ADMIT Orthopaedic Surgery; ATTEND Orthopaedic Surgery
PROC: 0SR903A Replacement of Right Hip Joint with Ceramic Synthetic Substitute, Uncemented, Open Approach (ICD-10-PCS; principal; 2020-09-12 13:39)
DX: M87.851 Other osteonecrosis, right femur (principal); J18.9 Pneumonia, unspecified organism; J98.11 Atelectasis; D62 Acute posthemorrhagic anemia; I95.9 Hypotension, unspecified; R50.9 Fever, unspecified; D72.829 Elevated white blood cell count, unspecified; F31.9 Bipolar disorder, unspecified
CPT/HCPCS: 36415; 71045-TC-FY; 71275-TC; 73502-TC-RT-FY; 80053; 81003; 83605; 83735; 85025; 85027; 85379; 87040; 87086; 87899; 94760; 97010-GP; 97116-GP; 97162-GP; C9803; G0480; J0131; Q9967; U0003; U0005

== ENCOUNTER 2020-09-12 09:50 | Emergency (ER) | payer BC ==
[2020-09-12] MEDS ORDERED: DIPHTH,PERTUSS(ACELL),TET 0.5 ML DISP.SYRIN IM ONE ×2 (10:05→10:23)
[2020-09-12 10:22] VITALS: BP 113/62; PULSE 89; TEMP 98.9; BMI 30.6
== END 2020-09-12 12:10 | disposition home or self-care (01) ==
LOC: FER 09:50
PROC: 0JQ10ZZ Repair Face Subcutaneous Tissue and Fascia, Open Approach (ICD-10-PCS; principal; 2020-09-12)
DX: S09.90XA Unspecified injury of head, initial encounter (principal); S01.81XA Laceration without foreign body of other part of head, initial encounter; S99.912A Unspecified injury of left ankle, initial encounter
CPT/HCPCS: 70450-TC; 73610-TC-LT-FY; 73630-TC-LT; 90715; 93005; 99284-25

== ENCOUNTER 2020-09-19 19:06 | Observation (INO) | payer BC ==
[2020-09-19] MEDS ORDERED: ACETAMINOPHEN 1000 MG/100 ML VIAL (NON FORMULARY) IVPB ONE (20:38)
[2020-09-19 20:56] LABS: INR 1.2 (0.83-1.09); PROTHROMBIN TIME (PATIENT) 14.5 SEC (9.7-13.0)
[2020-09-19] MEDS ORDERED: ACETAMINOPHEN INJECTION 100 ML IVPB ONE (21:01)
[2020-09-19 21:38] LABS: CHLORIDE 111 mmol/L (98-107); SODIUM 143 mmol/L (136-145)
[2020-09-19 21:40] LABS: ALBUMIN 2.9 g/dl (3.4-5.0); ANION GAP 7 MMOL/L (8-16); BLOOD UREA NITROGEN 15.7 mg/dL (7-18); CALCIUM 8.5 mg/dL (8.5-10.1); CO2 24 mmol/L (21-32); GLUCOSE,RANDOM 92 mg/dL (74-106)
[2020-09-19 21:42] LABS: SGOT/AST 24 U/L (15-37); SGPT/ALT 29 U/L (13-61)
[2020-09-19] MEDS ORDERED: traZODone HCL 150 MG TABLET PO ONE (21:42)
[2020-09-19] MEDS ORDERED: SERTRALINE HCL 50 MG TABLET (FP) PO ONE (21:42)
[2020-09-19 21:44] LABS: CREATININE 1.2 mg/dL (0.55-1.3); TOT PROT 6.4 g/dl (6.4-8.2)
[2020-09-19 21:46] LABS: ALK PHOS 76 U/L (45-117)
[2020-09-19 21:47] LABS: N-TERMINAL BNP 109.5 pg/ml (5-125)
[2020-09-19 21:49] LABS: BASO % 0.5 % (0-2.0); EOS % 0.9 % (0-4.5); HEMATOCRIT 28.9 % (35.4-49); HEMOGLOBIN 9.4 GM/dL (11.7-16.9); LYMPH % 13.6 % (8-40); MCHC 32.6 g/dl (32.0-35.9); MEAN CELL VOLUME 98.1 fl (80-96); MEAN PLT VOLUME 9.2 fl (7.5-11.1); MONO % 7.8 % (3.8-10.2); NEUT % 77.2 % (42.8-82.8); PLATELET COUNT 368 K/MM3 (134-434); RBC 2.94 M/mm3 (4.00-5.60); WHITE BLOOD COUNT 12.2 K/mm3 (4.0-10.0)
[2020-09-19] MEDS ORDERED: QUEtiapine FUMARATE 200 MG TABLET PO ONE (23:10)
[2020-09-19] MEDS ORDERED: QUEtiapine FUMARATE 100 MG TABLET (FP) ONE (23:12)
[2020-09-20] MEDS ORDERED: traMADol HCL 50 MG TABLET PO PRN (00:49)
[2020-09-20] MEDS ORDERED: traMADol HCL 50 MG TABLET ONE (06:07)
[2020-09-20 07:23] LABS: BASO % 0.4 % (0-2.0); EOS % 1.5 % (0-4.5); HEMATOCRIT 24.3 % (35.4-49); HEMOGLOBIN 8.2 GM/dL (11.7-16.9); LYMPH % 19.2 % (8-40); MCH 33.2 pg (25.7-33.7); MCHC 33.5 g/dl (32.0-35.9); MEAN PLT VOLUME 8.8 fl (7.5-11.1); MONO % 7.9 % (3.8-10.2); PLATELET COUNT 357 K/MM3 (134-434); RBC 2.46 M/mm3 (4.00-5.60); RDW 17.8 % (11.9-15.9); WHITE BLOOD COUNT 8.8 K/mm3 (4.0-10.0)
[2020-09-20 07:47] LABS: BLOOD UREA NITROGEN 15.5 mg/dL (7-18); CALCIUM 8.3 mg/dL (8.5-10.1)
[2020-09-20 07:51] LABS: CREATININE 1.1 mg/dL (0.55-1.3)
[2020-09-20] MEDS ORDERED: ALBUTEROL SO4 HFA INHALER IH PRN (11:27)
[2020-09-20] MEDS: MULTIVITAMINS (DAILY MVI) TABLET (FP) PO SCH (11:57)
[2020-09-20] MEDS: PREGABALIN 100 MG CAPSULE PO SCH ×2 (11:57→21:07)
[2020-09-20] MEDS: ASPIRIN 325 MG TABLET PO SCH (11:57)
[2020-09-20] MEDS: AMOX TR/POT CLAV 875MG/125MG TABLETS (FP) PO SCH ×2 (11:57→17:08)
[2020-09-20 12:27] VITALS: BMI 30.7
[2020-09-20] MEDS: traMADol HCL 50 MG TABLET PO PRN ×2 (14:21→21:05)
[2020-09-20] MEDS: DOCUSATE SODIUM 100 MG CAPSULE (FP) PO SCH ×2 (14:21→21:06)
[2020-09-20] MEDS ORDERED: ACETAMINOPHEN 1000 MG/100 ML VIAL (NON FORMULARY) IVPB ONE (15:54)
[2020-09-20] MEDS ORDERED: traZODone HCL 50 MG TABLET (FP) PO SCH (22:00)
[2020-09-20] MEDS ORDERED: QUEtiapine FUMARATE 200 MG TABLET PO SCH (22:00)
[2020-09-21] MEDS: DOCUSATE SODIUM 100 MG CAPSULE (FP) PO SCH ×2 (06:44→13:54)
[2020-09-21] MEDS: traMADol HCL 50 MG TABLET PO PRN (09:00)
[2020-09-21] MEDS: AMOX TR/POT CLAV 875MG/125MG TABLETS (FP) PO SCH ×2 (09:00→17:05)
[2020-09-21] MEDS: ASPIRIN 325 MG TABLET PO SCH (09:02)
[2020-09-21] MEDS: PREGABALIN 100 MG CAPSULE PO SCH (10:26)
[2020-09-21] MEDS: MULTIVITAMINS (DAILY MVI) TABLET (FP) PO SCH (10:26)
[2020-09-21] MEDS ORDERED: PT OWN MED DRAWER 7, Y5N ONE (10:34)
[2020-09-21] MEDS ORDERED: ALBUTEROL SO4 2.5/IPRATROPIUM 0.5 INH SOL 3 ML VIAL.NEB. NEB SCH (12:00)
[2020-09-21] MEDS ORDERED: ACETAMINOPHEN 1000 MG/100 ML VIAL (NON FORMULARY) IVPB PRN (14:21)
[2020-09-21 14:45] VITALS: BP 117/70; PULSE 86; TEMP 99
== END 2020-09-21 18:00 ==
LOC: JER 19:06 → UNDOADMOB 09-20 00:56 → JERBED 09-20 00:56 → INTOOBSV 09-20 00:56 → J6S 09-20 10:24 → JERBED 09-20 10:24 → J6S 09-20 14:29
PROVIDERS: ADMIT Internal Medicine; ATTEND Nurse Practitioner Family
PROC: 3E033NZ Introduction of Analgesics, Hypnotics, Sedatives into Peripheral Vein, Percutaneous Approach (ICD-10-PCS; principal; 2020-09-20)
PROC: 3E033GC Introduction of Other Therapeutic Substance into Peripheral Vein, Percutaneous Approach (ICD-10-PCS; 2020-09-20)
DX: Z76.89 Persons encountering health services in other specified circumstances (principal); R06.00 Dyspnea, unspecified; F31.9 Bipolar disorder, unspecified; J98.11 Atelectasis; R73.03 Prediabetes; G62.9 Polyneuropathy, unspecified; J18.9 Pneumonia, unspecified organism; M25.551 Pain in right hip; Z96.641 Presence of right artificial hip joint; Z20.822 Contact with and (suspected) exposure to COVID-19; M87.9 Osteonecrosis, unspecified; Z87.891 Personal history of nicotine dependence; M25.572 Pain in left ankle and joints of left foot; Z91.011 Allergy to milk products
CPT/HCPCS: 36415; 71045-TC-FY; 71275-TC; 80048; 80053; 82550; 82553; 83880; 84484; 85025; 85610; 93005; 93010; 94010; 97116-GP; 97162-GP; 99285-25; C9803; G0378; J0131; Q9967; U0003; U0005

== ENCOUNTER 2021-01-01 12:48 | Emergency (ER) | payer BC ==
[2021-01-01 13:03] VITALS: BP 121/79; PULSE 78; TEMP 98; BMI 27.7
== END 2021-01-01 14:00 | disposition home or self-care (01) ==
LOC: JER 12:48
DX: L03.112 Cellulitis of left axilla (principal)
CPT/HCPCS: 99281-25

== ENCOUNTER 2021-01-16 09:19 | Inpatient (IN) | payer BC ==
[2021-01-11 13:17] VITALS: BMI 35.6
[~2021-01-16 09:19] MED LIST: CEFAZOLIN 3 GM in DEXTROSE 5%-WATER - 100 ML IVPB ONE; CELECOXIB 200 MG CAPSULE PO ONE; TRANEXAMIC ACID 1000 MG/10 ML VIAL IVPUSH ONE
[2021-01-16] MEDS ORDERED: MIDAZOLAM HCL 2 MG/2 ML SINGLE DOSE VIAL ONE ×4 (10:03→11:07)
[2021-01-16] MEDS ORDERED: BUPIVACAINE LIPOSOME/PF (EXPAREL) 266 MG/20 ML VIAL ONE (10:03)
[2021-01-16] MEDS ORDERED: BUPIVACAINE HCL/PF 0.5% (5MG/ML) 10 ML VIAL ONE (10:04)
[2021-01-16] MEDS ORDERED: ceFAZolin SODIUM 1 GM VIAL ONE (10:30)
[2021-01-16] MEDS ORDERED: VANCOMYCIN 1,000 MG VIAL (RESTRICTED TO ID ONLY) ONE (10:30)
[2021-01-16] MEDS ORDERED: PROPOFOL 20 ML ONE ×2 (10:50)
[2021-01-16] MEDS ORDERED: SUCCINYLCHOLINE CHLORIDE 200 MG/10 ML SYRINGE ONE (10:51)
[2021-01-16] MEDS ORDERED: ONDANSETRON 4 MG/2 ML VIAL IVPUSH PRN ×2 (12:08→13:17)
[2021-01-16] MEDS ORDERED: oxyCODONE HCL 5 MG TABLET PO PRN (12:10)
[2021-01-16] MEDS ORDERED: ACETAMINOPHEN 500 MG TABLET (FP) PO SCH (12:15)
[2021-01-16] MEDS ORDERED: LACTATED RINGERS SOLUTION 1,000 ML IV SCH ×3 (12:15→13:30)
[2021-01-16] MEDS ORDERED: MAGNESIUM HYDROX 2400MG/30ML ORAL SUSPENSION 30 ML CUP PO PRN (12:44)
[2021-01-16] MEDS ORDERED: MAG HYDROX/AL HYDROX/SIMETH 30 ML UNIT-DOSE CUP PO PRN (12:44)
[2021-01-16] MEDS ORDERED: ACETAMINOPHEN 500 MG TABLET (FP) ONE (13:41)
[2021-01-16] MEDS ORDERED: oxyCODONE HCL 5 MG TABLET ONE (13:53)
[2021-01-16] MEDS: oxyCODONE HCL 5 MG TABLET PO PRN ×3 (14:29→23:12)
[2021-01-16] MEDS: oxyCODONE HCL 10 MG SUSTAINED ACTING TABLET PO SCH (17:31)
[2021-01-16] MEDS: CEFAZOLIN 2 GM/D5W 2 GM/50 ML ML IVPB SCH (19:17)
[2021-01-16] MEDS: ACETAMINOPHEN 500 MG TABLET (FP) PO SCH (20:15)
[2021-01-16] MEDS: traZODone HCL 100 MG TABLET (FP) PO SCH (21:48)
[2021-01-16] MEDS: PREGABALIN 50 MG CAPSULE PO SCH (21:48)
[2021-01-16] MEDS: SENNOSIDES/DOCUSATE COMBO (SENNA PLUS) TABLET (UD) PO SCH (21:50)
[2021-01-16] MEDS: QUEtiapine FUMARATE 100 MG TABLET (FP) PO SCH (21:50)
[2021-01-16] MEDS ORDERED: PATIENT'S OWN MEDICATION (NON-FORMULARY) (Pregabalin [Lyrica -] 150 MG Capsule) PO SCH (22:00)
[2021-01-17] MEDS: ACETAMINOPHEN 500 MG TABLET (FP) PO SCH ×4 (01:35→20:07)
[2021-01-17] MEDS: CEFAZOLIN 2 GM/D5W 2 GM/50 ML ML IVPB SCH (03:00)
[2021-01-17] MEDS: oxyCODONE HCL 10 MG SUSTAINED ACTING TABLET PO SCH ×2 (06:46→17:47)
[2021-01-17 08:05] LABS: HEMATOCRIT 36.7 % (35.4-49); HEMOGLOBIN 11.6 GM/dl (11.7-16.9); MCH 29.5 pg (25.7-33.7); MCHC 31.5 g/dl (32.0-35.9); MEAN CELL VOLUME 93.5 fl (80-96); PLATELET COUNT 243 10^3/uL (134-434); RBC 3.92 M/mm3 (4.00-5.60); RDW 15.1 % (11.9-15.9); WHITE BLOOD COUNT 7.4 K/mm3 (4.0-10.8)
[2021-01-17] MEDS: ASPIRIN 325 MG TABLET PO SCH (09:28)
[2021-01-17] MEDS: SENNOSIDES/DOCUSATE COMBO (SENNA PLUS) TABLET (UD) PO SCH ×2 (09:28→21:38)
[2021-01-17] MEDS: PANTOPRAZOLE 40 MG TABLET PO SCH (09:28)
[2021-01-17] MEDS: MULTIVITAMINS (DAILY MVI) TABLET (FP) PO SCH (09:30)
[2021-01-17] MEDS: oxyCODONE HCL 5 MG TABLET PO PRN ×5 (09:30→22:57)
[2021-01-17] MEDS: buPROPion HCL 75 MG TABLET PO SCH (11:31)
[2021-01-17] MEDS: BENZTROPINE MESYLATE 0.5 MG TABLET (FP) PO SCH (11:31)
[2021-01-17] MEDS ORDERED: PT OWN MED DRAWER 7, Y5N ONE (19:58)
[2021-01-17] MEDS: PREGABALIN 50 MG CAPSULE PO SCH (21:39)
[2021-01-17] MEDS: traZODone HCL 100 MG TABLET (FP) PO SCH (21:39)
[2021-01-17] MEDS: QUEtiapine FUMARATE 100 MG TABLET (FP) PO SCH (21:39)
[2021-01-18] MEDS: oxyCODONE HCL 5 MG TABLET PO PRN ×3 (02:00→14:23)
[2021-01-18] MEDS ORDERED: ACETAMINOPHEN 500 MG TABLET (FP) ONE (05:14)
[2021-01-18] MEDS: ACETAMINOPHEN 500 MG TABLET (FP) PO SCH ×3 (05:44→14:22)
[2021-01-18] MEDS: oxyCODONE HCL 10 MG SUSTAINED ACTING TABLET PO SCH (05:45)
[2021-01-18 08:11] LABS: HEMATOCRIT 35.1 % (35.4-49); HEMOGLOBIN 11.6 GM/dl (11.7-16.9); MCHC 33.1 g/dl (32.0-35.9); MEAN CELL VOLUME 90.6 fl (80-96); MEAN PLT VOLUME 9.1 fl (7.5-11.1); PLATELET COUNT 237 10^3/uL (134-434); RBC 3.88 M/mm3 (4.00-5.60); WHITE BLOOD COUNT 11.6 K/mm3 (4.0-10.8)
[2021-01-18] MEDS: ASPIRIN 325 MG TABLET PO SCH (08:37)
[2021-01-18] MEDS: SENNOSIDES/DOCUSATE COMBO (SENNA PLUS) TABLET (UD) PO SCH (10:05)
[2021-01-18] MEDS: MULTIVITAMINS (DAILY MVI) TABLET (FP) PO SCH (10:05)
[2021-01-18] MEDS: BENZTROPINE MESYLATE 0.5 MG TABLET (FP) PO SCH (10:06)
[2021-01-18] MEDS: PANTOPRAZOLE 40 MG TABLET PO SCH (10:06)
[2021-01-18] MEDS: buPROPion HCL 75 MG TABLET PO SCH (10:06)
[2021-01-18 14:26] VITALS: BP 134/82; PULSE 101; TEMP 99
== END 2021-01-18 17:25 | disposition home health service (06) | DRG 470 ==
LOC: FM/S 09:19
PROVIDERS: ADMIT Orthopaedic Surgery; ATTEND Orthopaedic Surgery
PROC: 0SRC0JA Replacement of Right Knee Joint with Synthetic Substitute, Uncemented, Open Approach (ICD-10-PCS; principal; 2021-01-16 11:27)
DX: M87.851 Other osteonecrosis, right femur (principal)
CPT/HCPCS: 36415; 73560-TC-RT-FY; 85027; 97010-GP; 97116-GP; 97163-GP

== ENCOUNTER 2021-05-24 20:24 | Inpatient (IN) | payer BC ==
[2021-05-24 20:31] VITALS: BMI 34.4
[2021-05-24] MEDS ORDERED: SODIUM CHLORIDE IV ONE (22:55)
[2021-05-24] MEDS ORDERED: SODIUM CHLORIDE 0.9% 500 ML INFUS.BAG IV ONE (23:45)
[2021-05-25 00:01] LABS: BASO % 0.3 % (0-2.0); EOS % 0.1 % (0-4.5); HEMOGLOBIN 12.2 GM/dL (11.7-16.9); MCH 30.3 pg (25.7-33.7); MCHC 33.9 g/dl (32.0-35.9); MEAN CELL VOLUME 89.4 fl (80-96); MONO % 15.2 % (3.8-10.2); NEUT % 75.4 % (42.8-82.8); PLATELET COUNT 236 10^3/uL (134-434); RBC 4.02 M/mm3 (4.00-5.60); RDW 14.8 % (11.9-15.9); WHITE BLOOD COUNT 6.8 K/mm3 (4.0-10.0)
[2021-05-25 00:02] LABS: VENOUS BASE EXCESS 0.6 mmol/L (-2-2); VENOUS O2 SATURATION 33.9 % (70-80); VENOUS PCO2 43.9 mmHg (38-52); VENOUS PH 7.389 (7.310-7.410)
[2021-05-25] MEDS ORDERED: ACETAMINOPHEN 1000 MG/100 ML BAG IVPB ONE (00:03)
[2021-05-25 00:09] LABS: INR 1.24 (0.83-1.09); PROTHROMBIN TIME (PATIENT) 14.5 SEC (9.7-13.0)
[2021-05-25 00:12] LABS: ACTIVATED PTT 33.3 SECONDS (25.2-36.5)
[2021-05-25] MEDS ORDERED: ACETAMINOPHEN INJECTION 100 ML IVPB ONE (00:21)
[2021-05-25 00:22] LABS: CHLORIDE 105 mmol/L (98-107); SODIUM 137 mmol/L (136-145)
[2021-05-25 00:25] LABS: ANION GAP 9 MMOL/L (8-16); BLOOD UREA NITROGEN 8.1 mg/dL (7-18); CO2 24 mmol/L (21-32)
[2021-05-25 00:26] LABS: ALBUMIN 3.8 g/dl (3.4-5.0); GLUCOSE,RANDOM 85 mg/dL (74-106)
[2021-05-25 00:28] LABS: CREATININE 1.2 mg/dL (0.55-1.3); SGOT/AST 18 U/L (15-37); SGPT/ALT 24 U/L (13-61)
[2021-05-25 00:29] LABS: BILIRUBIN,TOTAL 0.5 mg/dL (0.2-1); TOT PROT 7.7 g/dl (6.4-8.2)
[2021-05-25 00:31] LABS: ALK PHOS 94 U/L (45-117)
[2021-05-25] MEDS ORDERED: PIPERACILLIN/TAZOB 4.5 GM 4.5 GM in DEXTROSE 5%-WATER 100 ML IVPB ONE (01:19)
[2021-05-25] MEDS ORDERED: VANCOMYCIN 1 GM in D5W (PRE-DOCKED) 1,000 MG/250 ML IVPB ONE (01:19)
[2021-05-25] MEDS ORDERED: PIPERACILLIN/TAZOB 4.5 GM 4.5 GM/100 ML BAG IVPB ONE (01:50)
[2021-05-25] MEDS ORDERED: VANCOMYCIN 1 GRAM (PRE-DOCKED) 1,000 MG/250 ML BAG IVPB ONE (02:45)
[2021-05-25] MEDS ORDERED: POLYETHYLENE GLYCOL (HEALTHYLAX) 3350 17 GM PACKET PO PRN (03:16)
[2021-05-25 03:38] LABS: PH,URINE 6.5 (5.0-8.0); URINE APPEARANCE CLEAR; URINE BILIRUBIN NEGATIVE (NEGATIVE); URINE COLOR YELLOW; URINE GLUCOSE (UA) NEGATIVE (NEGATIVE); URINE KETONE TRACE (NEGATIVE); URINE LEUK ESTERASE NEGATIVE (NEGATIVE); URINE NITRITE NEGATIVE (NEGATIVE); URINE PROTEIN TRACE (NEGATIVE)
[2021-05-25] MEDS ORDERED: ZOLPIDEM TARTRATE 5 MG TABLET PO ONE (04:06)
[2021-05-25] MEDS ORDERED: QUEtiapine FUMARATE 200 MG TABLET PO ONE (04:06)
[2021-05-25] MEDS ORDERED: QUEtiapine FUMARATE 100 MG TABLET (FP) PO ONE (04:06)
[2021-05-25] MEDS ORDERED: QUEtiapine FUMARATE 100 MG TABLET (FP) ONE (04:17)
[2021-05-25] MEDS: INSULIN SLIDING SCALE (NOVOLOG) 1 VIAL SQ SCH ×4 (05:59→21:12)
[2021-05-25] MEDS ORDERED: IBUPROFEN 400 MG TABLET (FP) PO PRN (08:43)
[2021-05-25] MEDS ORDERED: PT OWN MED DRAWER 7, Y5N ONE ×2 (08:59→15:24)
[2021-05-25] MEDS ORDERED: PIPERACILLIN/TAZOBACTAM 3.375 GM VIAL IVPB ONE ×2 (08:59→14:03)
[2021-05-25] MEDS ORDERED: DEXTROSE 5%-WATER - 50 ML IVPB ONE ×2 (08:59→14:04)
[2021-05-25] MEDS: PIPERACILLIN/TAZOB 3.375 GM 3.375 GM in DEXTROSE 5%-WATER - 50 ML IVPB SCH ×3 (09:05→19:47)
[2021-05-25] MEDS: PREGABALIN 100 MG CAPSULE PO SCH ×2 (09:15→21:08)
[2021-05-25] MEDS: ENOXAPARIN NA (PORCINE) 40 MG/0.4 ML DISP.SYRIN SQ SCH (09:17)
[2021-05-25] MEDS: buPROPion HCL 75 MG TABLET PO SCH (10:11)
[2021-05-25] MEDS: ACETAMINOPHEN 325 MG TABLET (FP) PO PRN ×2 (13:10→21:09)
[2021-05-25] MEDS ORDERED: morphine SULFATE 4 MG/ML VIAL IVPUSH PRN (14:35)
[2021-05-25] MEDS ORDERED: oxyCODONE HCL 5 MG TABLET PO PRN (14:36)
[2021-05-25] MEDS ORDERED: VANCOMYCIN HCL 1,500 MG in DEXTROSE 5%-WATER - 250 ML IVPB SCH (15:00)
[2021-05-25] MEDS ORDERED: VANCOMYCIN PREMIX 1.5 GM 1,500 MG/300 ML BAG IVPB SCH (15:00)
[2021-05-25] MEDS: ZOLPIDEM TARTRATE 5 MG TABLET PO SCH (21:09)
[2021-05-25] MEDS: QUEtiapine FUMARATE 100 MG TABLET (FP) PO SCH (21:09)
[2021-05-26] MEDS: INSULIN SLIDING SCALE (NOVOLOG) 1 VIAL SQ SCH ×4 (06:00→21:10)
[2021-05-26] MEDS ORDERED: PT OWN MED DRAWER 7, Y5N ONE (09:18)
[2021-05-26] MEDS: ENOXAPARIN NA (PORCINE) 40 MG/0.4 ML DISP.SYRIN SQ SCH ×2 (09:19→09:22)
[2021-05-26] MEDS: PREGABALIN 100 MG CAPSULE PO SCH ×2 (09:19→21:11)
[2021-05-26] MEDS: buPROPion HCL 75 MG TABLET PO SCH (09:20)
[2021-05-26 10:26] LABS: BASO % 0.2 % (0-2.0); EOS % 3.2 % (0-4.5); HEMOGLOBIN 12.3 GM/dL (11.7-16.9); LYMPH % 28.6 % (8-40); MCH 29.3 pg (25.7-33.7); MCHC 32.3 g/dl (32.0-35.9); MEAN CELL VOLUME 90.8 fl (80-96); MEAN PLT VOLUME 9.8 fl (7.5-11.1); MONO % 12.9 % (3.8-10.2); NEUT % 55.1 % (42.8-82.8); PLATELET COUNT 246 10^3/uL (134-434); RBC 4.19 M/mm3 (4.00-5.60); WHITE BLOOD COUNT 5.2 K/mm3 (4.0-10.0)
[2021-05-26 10:42] LABS: CALCIUM 8.7 mg/dL (8.5-10.1)
[2021-05-26 10:43] LABS: ALBUMIN 3.5 g/dl (3.4-5.0); BLOOD UREA NITROGEN 10.7 mg/dL (7-18)
[2021-05-26 10:47] LABS: BILIRUBIN,TOTAL 0.7 mg/dL (0.2-1); CREATININE 1.2 mg/dL (0.55-1.3); TOT PROT 7.4 g/dl (6.4-8.2)
[2021-05-26 10:48] LABS: PHOSPHOROUS 3.8 mg/dL (2.5-4.9)
[2021-05-26] MEDS: oxyCODONE HCL 5 MG TABLET PO PRN (18:22)
[2021-05-26] MEDS: QUEtiapine FUMARATE 100 MG TABLET (FP) PO SCH (23:00)
[2021-05-26] MEDS: ZOLPIDEM TARTRATE 5 MG TABLET PO SCH (23:00)
[2021-05-27] MEDS: oxyCODONE HCL 5 MG TABLET PO PRN ×3 (01:10→15:07)
[2021-05-27] MEDS: INSULIN SLIDING SCALE (NOVOLOG) 1 VIAL SQ SCH ×4 (06:04→21:52)
[2021-05-27] MEDS: ENOXAPARIN NA (PORCINE) 40 MG/0.4 ML DISP.SYRIN SQ SCH (09:19)
[2021-05-27] MEDS: PREGABALIN 100 MG CAPSULE PO SCH ×2 (09:22→21:52)
[2021-05-27] MEDS ORDERED: PT OWN MED DRAWER 7, Y5N ONE (09:22)
[2021-05-27] MEDS: buPROPion HCL 75 MG TABLET PO SCH (09:23)
[2021-05-27 14:43] VITALS: BP 138/86; PULSE 79; TEMP 97.8
[2021-05-27] MEDS: ZOLPIDEM TARTRATE 5 MG TABLET PO SCH (21:52)
[2021-05-27] MEDS: QUEtiapine FUMARATE 100 MG TABLET (FP) PO SCH (21:53)
== END 2021-05-27 22:40 | disposition home or self-care (01) | DRG 864 ==
LOC: JER 20:24 → JERBED 05-25 01:16 → J6S 05-25 04:50
PROVIDERS: ADMIT Internal Medicine; ATTEND Internal Medicine
DX: R50.9 Fever, unspecified (principal); R65.10 Systemic inflammatory response syndrome (SIRS) of non-infectious origin without acute organ dysfunction; F31.9 Bipolar disorder, unspecified; R73.03 Prediabetes; G47.00 Insomnia, unspecified; Z96.651 Presence of right artificial knee joint; Z96.641 Presence of right artificial hip joint
CPT/HCPCS: 36415; 71045-TC-FY; 73562-TC-RT-FY; 80048; 80053; 81003; 82728; 82803; 82962; 83010; 83605; 83615; 83735; 84100; 84484; 85025; 85610; 85651; 85730; 86140; 87040; 87804; 87807; 93005; 93010; 99285-25; C9803; J0131; U0003; U0005

== ENCOUNTER 2021-05-30 02:36 | Observation (INO) | payer BC ==
[2021-05-30] MEDS ORDERED: HYDROmorphone HCL CARPU-JECT 2 MG/1 ML DISP.SYRIN IVPUSH ONE ×3 (02:42→05:57)
[2021-05-30] MEDS ORDERED: ONDANSETRON 4 MG/2 ML VIAL IVPUSH ONE (02:42)
[2021-05-30] MEDS ORDERED: HYDROmorphone HCl 2 MG/ML VIAL ONE ×2 (02:49→05:58)
[2021-05-30 03:00] LABS: HEMATOCRIT 35.4 % (35.4-49); MCH 30.5 pg (25.7-33.7); MEAN CELL VOLUME 89.8 fl (80-96); MEAN PLT VOLUME 9.3 fl (7.5-11.1); PLATELET COUNT 237 10^3/uL (134-434); RBC 3.94 M/mm3 (4.00-5.60); RDW 14.8 % (11.9-15.9); WHITE BLOOD COUNT 11.4 K/mm3 (4.0-10.0)
[2021-05-30 03:12] LABS: INR 1.19 (0.83-1.09); PROTHROMBIN TIME (PATIENT) 13.3 SEC (9.7-13.0)
[2021-05-30 03:15] LABS: ACTIVATED PTT 28.5 SECONDS (25.2-36.5)
[2021-05-30 03:20] LABS: CALCIUM 8.4 mg/dL (8.5-10.1)
[2021-05-30 03:21] LABS: ALBUMIN 3.6 g/dl (3.4-5.0); BLOOD UREA NITROGEN 8.1 mg/dL (7-18)
[2021-05-30 03:24] LABS: CREATININE 1.1 mg/dL (0.55-1.3)
[2021-05-30 03:26] LABS: BILIRUBIN,TOTAL 0.3 mg/dL (0.2-1); TOT PROT 7.6 g/dl (6.4-8.2)
[2021-05-30] MEDS ORDERED: ACETAMINOPHEN 325 MG TABLET (FP) PO PRN (08:18)
[2021-05-30] MEDS ORDERED: PREGABALIN 100 MG CAPSULE ONE (09:38)
[2021-05-30] MEDS ORDERED: QUEtiapine FUMARATE 100 MG TABLET (FP) ONE (09:38)
[2021-05-30] MEDS ORDERED: ENOXAPARIN NA (PORCINE) 40 MG/0.4 ML DISP.SYRIN SQ ONE (09:39)
[2021-05-30] MEDS: PREGABALIN 100 MG CAPSULE PO SCH ×2 (10:13→21:00)
[2021-05-30] MEDS: ENOXAPARIN NA (PORCINE) 40 MG/0.4 ML DISP.SYRIN SQ SCH (10:13)
[2021-05-30] MEDS: SODIUM CHLORIDE 1,000 ML IV SCH (10:13)
[2021-05-30] MEDS: PANTOPRAZOLE 40 MG TABLET PO SCH (16:49)
[2021-05-30] MEDS: buPROPion HCL 75 MG TABLET PO SCH (16:54)
[2021-05-30] MEDS ORDERED: PT OWN MED DRAWER 7, Y5N ONE (17:22)
[2021-05-30 18:31] VITALS: BMI 33.5
[2021-05-30] MEDS: oxyCODONE HCL 5 MG TABLET PO PRN (20:49)
[2021-05-30] MEDS: ZOLPIDEM TARTRATE 5 MG TABLET PO PRN (22:06)
[2021-05-30] MEDS: QUEtiapine FUMARATE 100 MG TABLET (FP) PO SCH (22:07)
[2021-05-31 10:06] LABS: BASO % 0.3 % (0-2.0); EOS % 3.8 % (0-4.5); HEMATOCRIT 35.8 % (35.4-49); HEMOGLOBIN 11.8 GM/dL (11.7-16.9); LYMPH % 26.9 % (8-40); MCH 29.7 pg (25.7-33.7); MCHC 33.1 g/dl (32.0-35.9); MEAN CELL VOLUME 89.7 fl (80-96); MEAN PLT VOLUME 9.7 fl (7.5-11.1); PLATELET COUNT 257 10^3/uL (134-434); RBC 3.99 M/mm3 (4.00-5.60); RDW 15.1 % (11.9-15.9); WHITE BLOOD COUNT 7.1 K/mm3 (4.0-10.0)
[2021-05-31 10:25] LABS: ALBUMIN 3.6 g/dl (3.4-5.0); MAGNESIUM 2.5 mg/dL (1.8-2.4)
[2021-05-31 10:27] LABS: CREATININE 1.1 mg/dL (0.55-1.3); PHOSPHOROUS 3.4 mg/dL (2.5-4.9)
[2021-05-31 10:28] LABS: BILIRUBIN,TOTAL 1.3 mg/dL (0.2-1)
[2021-05-31 10:29] LABS: TOT PROT 7.6 g/dl (6.4-8.2)
[2021-05-31] MEDS ORDERED: PT OWN MED DRAWER 7, Y5N ONE (10:48)
[2021-05-31] MEDS: buPROPion HCL 75 MG TABLET PO SCH (10:49)
[2021-05-31] MEDS: PANTOPRAZOLE 40 MG TABLET PO SCH (10:49)
[2021-05-31] MEDS: ENOXAPARIN NA (PORCINE) 40 MG/0.4 ML DISP.SYRIN SQ SCH (10:49)
[2021-05-31] MEDS: PREGABALIN 100 MG CAPSULE PO SCH ×2 (10:49→21:36)
[2021-05-31] MEDS: SODIUM CHLORIDE 1,000 ML IV SCH (10:50)
[2021-05-31] MEDS: oxyCODONE HCL 5 MG TABLET PO PRN (11:02)
[2021-05-31] MEDS ORDERED: ACETAMINOPHEN 500 MG TABLET (FP) PO PRN (13:55)
[2021-05-31] MEDS: QUEtiapine FUMARATE 100 MG TABLET (FP) PO SCH (21:36)
[2021-05-31] MEDS: ZOLPIDEM TARTRATE 5 MG TABLET PO PRN (21:37)
[2021-06-01] MEDS ORDERED: guaiFENesin 200 MG/10 ML 10 ML UNIT-DOSE CUPS PO PRN (00:27)
[2021-06-01 09:30] LABS: HEMATOCRIT 34.1 % (35.4-49); HEMOGLOBIN 11.3 GM/dL (11.7-16.9); MCH 29.8 pg (25.7-33.7); MCHC 33.1 g/dl (32.0-35.9); MEAN CELL VOLUME 90.2 fl (80-96); MEAN PLT VOLUME 9.6 fl (7.5-11.1); PLATELET COUNT 251 10^3/uL (134-434); RBC 3.78 M/mm3 (4.00-5.60); RDW 15.2 % (11.9-15.9); WHITE BLOOD COUNT 6.3 K/mm3 (4.0-10.0)
[2021-06-01 10:00] LABS: ALBUMIN 3.2 g/dl (3.4-5.0); BLOOD UREA NITROGEN 11.3 mg/dL (7-18); CALCIUM 8.8 mg/dL (8.5-10.1); MAGNESIUM 2.3 mg/dL (1.8-2.4)
[2021-06-01 10:03] LABS: CREATININE 1.2 mg/dL (0.55-1.3); PHOSPHOROUS 3.8 mg/dL (2.5-4.9)
[2021-06-01 10:04] LABS: BILIRUBIN,TOTAL 0.8 mg/dL (0.2-1)
[2021-06-01] MEDS: ENOXAPARIN NA (PORCINE) 40 MG/0.4 ML DISP.SYRIN SQ SCH (10:09)
[2021-06-01] MEDS: SODIUM CHLORIDE 1,000 ML IV SCH (10:10)
[2021-06-01] MEDS: PANTOPRAZOLE 40 MG TABLET PO SCH (10:10)
[2021-06-01] MEDS: buPROPion HCL 75 MG TABLET PO SCH (10:10)
[2021-06-01] MEDS: PREGABALIN 100 MG CAPSULE PO SCH (10:10)
[2021-06-01 15:53] VITALS: BP 117/75; PULSE 84; TEMP 97.7
== END 2021-06-01 16:56 | disposition home or self-care (01) ==
LOC: JER 02:36 → JERBED 03:58 → UNDOADMOB 03:58 → INTOOBSV 03:58 → JERBED 08:20 → J8W 15:47
PROVIDERS: ADMIT Internal Medicine; ATTEND Internal Medicine
PROC: 3E023GC Introduction of Other Therapeutic Substance into Muscle, Percutaneous Approach (ICD-10-PCS; principal; 2021-05-30)
PROC: 3E033NZ Introduction of Analgesics, Hypnotics, Sedatives into Peripheral Vein, Percutaneous Approach (ICD-10-PCS; 2021-05-30)
DX: U07.1 COVID-19 (principal); M87.9 Osteonecrosis, unspecified; Z96.641 Presence of right artificial hip joint; Z96.651 Presence of right artificial knee joint; R50.9 Fever, unspecified; K27.9 Peptic ulcer, site unspecified, unspecified as acute or chronic, without hemorrhage or perforation; F31.9 Bipolar disorder, unspecified; D72.829 Elevated white blood cell count, unspecified; Z29.9 Encounter for prophylactic measures, unspecified; Z87.891 Personal history of nicotine dependence; Z68.33 Body mass index [BMI] 33.0-33.9, adult; Z88.8 Allergy status to other drugs, medicaments and biological substances; E66.9 Obesity, unspecified; Z91.011 Allergy to milk products
CPT/HCPCS: 36415; 71045-TC-FY; 72170-TC-FY; 72192-TC; 73502-TC-LT-FY; 80053; 83605; 83735; 84100; 85025; 85027; 85379; 85610; 85730; 86140; 86850; 86900; 86901; 87040; 93005; 93010; 97116-GP; 99285-25; C9803; G0378; U0003; U0005

== ENCOUNTER 2021-07-03 06:58 | Day surgery (SDC) | payer BC ==
[2021-07-03] MEDS ORDERED: CELECOXIB 200 MG CAPSULE PO ONE ×2 (07:54→08:00)
[2021-07-03] MEDS ORDERED: CEFAZOLIN 3 GM in DEXTROSE 5%-WATER - 100 ML IVPB ONE (07:54)
[2021-07-03] MEDS ORDERED: TRANEXAMIC ACID 1000 MG/10 ML VIAL IVPUSH ONE (07:54)
[2021-07-03 08:15] VITALS: BMI 34.4
[2021-07-03] MEDS ORDERED: MIDAZOLAM HCL 2 MG/2 ML SINGLE DOSE VIAL ONE ×2 (09:02→10:07)
[2021-07-03] MEDS ORDERED: ROPIVACAINE HCL/PF 100 MG/20 ML VIAL ONE (09:02)
[2021-07-03] MEDS ORDERED: VANCOMYCIN 1,000 MG VIAL (RESTRICTED TO ID ONLY) ONE (09:17)
[2021-07-03] MEDS ORDERED: ceFAZolin SODIUM 1 GM VIAL ONE ×3 (09:17→22:48)
[2021-07-03] MEDS ORDERED: PROPOFOL 20 ML ONE ×3 (09:20→09:22)
[2021-07-03] MEDS ORDERED: SUCCINYLCHOLINE CHLORIDE 200 MG/10 ML SYRINGE ONE (09:20)
[2021-07-03] MEDS ORDERED: ONDANSETRON 4 MG/2 ML VIAL ONE (09:23)
[2021-07-03] MEDS ORDERED: MAG HYDROX/AL HYDROX/SIMETH 30 ML UNIT-DOSE CUP PO PRN (12:19)
[2021-07-03] MEDS ORDERED: ONDANSETRON 4 MG/2 ML VIAL IVPUSH PRN (12:19)
[2021-07-03] MEDS ORDERED: LACTATED RINGERS SOLUTION 1,000 ML IV SCH (12:30)
[2021-07-03] MEDS ORDERED: ACETAMINOPHEN 1000 MG/100 ML BAG IVPB ONE ×2 (13:00→17:55)
[2021-07-03] MEDS ORDERED: oxyCODONE HCL 5 MG TABLET PO PRN ×2 (13:00)
[2021-07-03] MEDS: KETOROLAC TROMETHAMINE 30 MG/1 ML VIAL IVPUSH SCH ×2 (13:10→19:45)
[2021-07-03] MEDS ORDERED: oxyCODONE HCL 5 MG TABLET ONE ×2 (13:14→16:42)
[2021-07-03] MEDS: oxyCODONE HCL 5 MG TABLET PO PRN ×4 (13:15→23:01)
[2021-07-03] MEDS: LACTATED RINGERS SOLUTION 1,000 ML IV SCH (16:49)
[2021-07-03] MEDS ORDERED: oxyCODONE HCL 40 MG SUSTAINED ACTING TABLET PO ONE (17:57)
[2021-07-03] MEDS: CEFAZOLIN 3 GM in DEXTROSE 5%-WATER - 100 ML IVPB SCH (18:20)
[2021-07-03] MEDS: QUEtiapine FUMARATE 200 MG TABLET PO SCH (21:37)
[2021-07-03] MEDS: PREGABALIN 50 MG CAPSULE PO SCH (21:37)
[2021-07-03] MEDS: SENNOSIDES/DOCUSATE COMBO (SENNA PLUS) TABLET (UD) PO SCH (21:41)
[2021-07-03] MEDS ORDERED: DEXTROSE 5%-WATER - 100 ML IVPB ONE (22:48)
[2021-07-03] MEDS: ZOLPIDEM TARTRATE 5 MG TABLET PO PRN (23:44)
[2021-07-04] MEDS: CEFAZOLIN 3 GM in DEXTROSE 5%-WATER - 100 ML IVPB SCH (02:32)
[2021-07-04] MEDS ORDERED: BUPIVACAINE LIPOSOME/PF (EXPAREL) 266 MG/20 ML VIAL ONE (08:20)
[2021-07-04] MEDS ORDERED: SODIUM CHLORIDE 0.9% P/F 10 ML VIAL IJ ONE (08:20)
[2021-07-04] MEDS ORDERED: MIDAZOLAM HCL 2 MG/2 ML SINGLE DOSE VIAL ONE (08:20)
[2021-07-04] MEDS ORDERED: BUPIVACAINE HCL 50 ML ONE (08:20)
[2021-07-04 09:01] LABS: HEMATOCRIT 29.7 % (35.4-49); HEMOGLOBIN 9.7 GM/dL (11.7-16.9); MCH 29.5 pg (25.7-33.7); MCHC 32.7 g/dl (32.0-35.9); MEAN CELL VOLUME 90.4 fl (80-96); MEAN PLT VOLUME 8.7 fl (7.5-11.1); PLATELET COUNT 261 10^3/uL (134-434); RBC 3.28 M/mm3 (4.00-5.60); RDW 15.3 % (11.9-15.9)
[2021-07-04] MEDS: ASPIRIN 325 MG TABLET PO SCH (09:29)
[2021-07-04] MEDS: PANTOPRAZOLE 40 MG TABLET PO SCH (09:30)
[2021-07-04] MEDS: buPROPion HCL 75 MG TABLET PO SCH (09:30)
[2021-07-04] MEDS: MULTIVITAMINS (DAILY MVI) TABLET (FP) PO SCH (09:30)
[2021-07-04] MEDS: SENNOSIDES/DOCUSATE COMBO (SENNA PLUS) TABLET (UD) PO SCH ×2 (09:30→21:42)
[2021-07-04] MEDS: PREGABALIN 50 MG CAPSULE PO SCH ×2 (09:31→21:42)
[2021-07-04] MEDS: oxyCODONE HCL 5 MG TABLET PO PRN ×4 (09:31→21:41)
[2021-07-04] MEDS: LACTATED RINGERS SOLUTION 1,000 ML IV SCH (16:19)
[2021-07-04] MEDS: QUEtiapine FUMARATE 200 MG TABLET PO SCH (21:41)
[2021-07-04] MEDS: ZOLPIDEM TARTRATE 5 MG TABLET PO PRN (21:43)
[2021-07-05 09:06] LABS: HEMATOCRIT 27.8 % (35.4-49); HEMOGLOBIN 9.2 GM/dL (11.7-16.9); MCH 29.6 pg (25.7-33.7); MCHC 32.9 g/dl (32.0-35.9); PLATELET COUNT 248 10^3/uL (134-434); RBC 3.09 M/mm3 (4.00-5.60); WHITE BLOOD COUNT 11.2 K/mm3 (4.0-10.0)
[2021-07-05] MEDS: oxyCODONE HCL 5 MG TABLET PO PRN ×3 (09:07→19:14)
[2021-07-05] MEDS: PREGABALIN 50 MG CAPSULE PO SCH ×2 (10:17→21:11)
[2021-07-05] MEDS: MULTIVITAMINS (DAILY MVI) TABLET (FP) PO SCH (10:17)
[2021-07-05] MEDS: buPROPion HCL 75 MG TABLET PO SCH (10:17)
[2021-07-05] MEDS: SENNOSIDES/DOCUSATE COMBO (SENNA PLUS) TABLET (UD) PO SCH ×2 (10:18→21:11)
[2021-07-05] MEDS: ASPIRIN 325 MG TABLET PO SCH (10:18)
[2021-07-05] MEDS: PANTOPRAZOLE 40 MG TABLET PO SCH (10:23)
[2021-07-05] MEDS: LACTATED RINGERS SOLUTION 1,000 ML IV SCH (16:09)
[2021-07-05] MEDS: QUEtiapine FUMARATE 200 MG TABLET PO SCH (21:11)
[2021-07-05] MEDS: ZOLPIDEM TARTRATE 5 MG TABLET PO PRN (22:03)
[2021-07-06] MEDS: oxyCODONE HCL 5 MG TABLET PO PRN (06:22)
[2021-07-06 06:35] VITALS: BP 138/92; PULSE 113; TEMP 97.6
[2021-07-06] MEDS: ASPIRIN 325 MG TABLET PO SCH (08:19)
[2021-07-06] MEDS: MULTIVITAMINS (DAILY MVI) TABLET (FP) PO SCH (09:19)
[2021-07-06] MEDS: buPROPion HCL 75 MG TABLET PO SCH (09:19)
[2021-07-06] MEDS: PANTOPRAZOLE 40 MG TABLET PO SCH (09:19)
[2021-07-06] MEDS: SENNOSIDES/DOCUSATE COMBO (SENNA PLUS) TABLET (UD) PO SCH (09:19)
[2021-07-06] MEDS: PREGABALIN 50 MG CAPSULE PO SCH (09:20)
== END 2021-07-06 11:51 ==
LOC: FASUSAT 06:58 → FM/S 08:14 → EDSTATUS 09:30 → FASUSAT 07-06 11:51
PROVIDERS: ATTEND Orthopaedic Surgery
PROC: 8E0YXBZ Computer Assisted Procedure of Lower Extremity (ICD-10-PCS; 2021-07-03)
PROC: 8E0W0CZ Robotic Assisted Procedure of Trunk Region, Open Approach (ICD-10-PCS; 2021-07-03)
PROC: 0SRB0J9 Replacement of Left Hip Joint with Synthetic Substitute, Cemented, Open Approach (ICD-10-PCS; principal; 2021-07-03 10:39)
DX: M16.12 Unilateral primary osteoarthritis, left hip (principal); M87.852 Other osteonecrosis, left femur
CPT/HCPCS: 20985; 27130; C1776; S2900; 36415; 73502-TC-LT-FY; 85027; 88305-TC; 88311-TC; 94760; 97010-GP; 97116-GP; 97161-GP

== ENCOUNTER 2023-04-06 11:15 | Emergency (ER) | payer SELFPAY ==
[2023-04-06 11:23] VITALS: BMI 32.3
[2023-04-06] MEDS ORDERED: SODIUM CHLORIDE 0.9% 1000 ML INFUS.BAG IV ONE (11:41)
[2023-04-06] MEDS ORDERED: LORazepam 2 MG/ML SDV VIAL IVPB ONE (11:41)
[2023-04-06 12:05] LABS: HEMATOCRIT 32.5 % (35.4-49); HEMOGLOBIN 10.4 GM/dL (11.7-16.9); MCH 33.5 pg (25.7-33.7); MEAN CELL VOLUME 104.8 fl (80-96); MEAN PLT VOLUME 8.6 fl (7.5-11.1); MONO % 6.6 % (3.8-10.2); NEUT % 82.4 % (42.8-82.8); PLATELET COUNT 286 10^3/uL (134-434); RDW 14.8 % (11.9-15.9); WHITE BLOOD COUNT 14.4 K/mm3 (4.0-10.0)
[2023-04-06 12:06] LABS: PH,URINE 6.5 (5.0-8.0); URINE APPEARANCE CLEAR; URINE BILIRUBIN NEGATIVE (NEGATIVE); URINE COLOR YELLOW; URINE GLUCOSE (UA) NEGATIVE (NEGATIVE); URINE KETONE NEGATIVE (NEGATIVE); URINE LEUK ESTERASE NEGATIVE (NEGATIVE); URINE NITRITE NEGATIVE (NEGATIVE); URINE PROTEIN NEGATIVE (NEGATIVE); URINE UROBILINOGEN 0.2 mg/dL (0.2-1.0)
[2023-04-06 12:06] LABS: VENOUS O2 SATURATION 99.5 % (70-80); VENOUS PCO2 21.7 mmHg (38-52); VENOUS PH 7.558 (7.310-7.410)
[2023-04-06 12:09] LABS: INR 1.23 (0.83-1.09); PROTHROMBIN TIME (PATIENT) 14.2 SEC (9.7-13.0)
[2023-04-06 12:12] LABS: ACTIVATED PTT 27.4 SECONDS (25.2-36.5)
[2023-04-06 12:16] LABS: COCAINE, UR NEGATIVE (NEGATIVE); METHADONE, UR NEGATIVE (NEGATIVE); URINE BENZODIAZEPINES NEGATIVE (NEGATIVE)
[2023-04-06 12:17] LABS: OPIATES, URI NEGATIVE (NEGATIVE); PHENCYCLIDINE,URINE NEGATIVE (NEGATIVE)
[2023-04-06 12:17] LABS: POTASSIUM 3.2 mmol/L (3.5-5.1)
[2023-04-06 12:19] LABS: ALBUMIN 3.9 g/dl (3.4-5.0); CALCIUM 8.7 mg/dL (8.5-10.1); MAGNESIUM 1.9 mg/dL (1.8-2.4)
[2023-04-06 12:21] LABS: URINE AMPHETAMINES POSITIVE (NEGATIVE); URINE BARBITURATES NEGATIVE (NEGATIVE)
[2023-04-06 12:23] LABS: CREATININE 1.1 mg/dL (0.55-1.3)
[2023-04-06 12:24] LABS: BILIRUBIN,TOTAL 2.7 mg/dL (0.2-1); TOT PROT 7.4 g/dl (6.4-8.2)
[2023-04-06 12:29] LABS: CREATININE, URINE RANDOM < 13.0 mg/dL (30-150)
[2023-04-06] MEDS ORDERED: POTASSIUM CHLORIDE TABS 10 MEQ TABLET.ER (FP) PO ONE (14:07)
[2023-04-06] MEDS ORDERED: POTASSIUM CHLORIDE TABS 20 MEQ TABLET.ER (FP) PO ONE (14:18)
[2023-04-06 15:02] VITALS: BP 110/78; PULSE 99; RESP 20
[2023-04-06 15:03] VITALS: TEMP 97.4
== END 2023-04-06 15:31 | disposition left against medical advice (07) ==
LOC: JER 11:15
PROC: 3E033GC Introduction of Other Therapeutic Substance into Peripheral Vein, Percutaneous Approach (ICD-10-PCS; principal; 2023-04-06)
DX: T43.644A Poisoning by ecstasy, undetermined, initial encounter (principal); R12 Heartburn; R35.0 Frequency of micturition; R00.0 Tachycardia, unspecified; R61 Generalized hyperhidrosis
CPT/HCPCS: 36415; 71045-TC-FY; 80053; 80307; 81003; 82550; 82553; 82570; 82803; 83735; 83930; 83935; 84300; 84484; 85025; 85610; 85730; 87086; 93005; 93010; 99285-25

== ENCOUNTER 2023-11-27 04:32 | Emergency (ER) | payer OTHER ==
[2023-11-27 04:55] VITALS: BP 105/60; RESP 20; TEMP 99; BMI 32.3
[2023-11-27 05:22] LABS: BASO % 0.6 % (0-2.0); HEMATOCRIT 33.7 % (35.4-49); HEMOGLOBIN 11.2 GM/dL (11.7-16.9); LYMPH % 11.4 % (8-40); MCH 34.8 pg (25.7-33.7); MCHC 33.3 g/dl (32.0-35.9); MEAN CELL VOLUME 104.7 fl (80-96); MEAN PLT VOLUME 8.9 fl (7.5-11.1); MONO % 7.1 % (3.8-10.2); NEUT % 80.9 % (42.8-82.8); PLATELET COUNT 257 10^3/uL (134-434); RBC 3.22 M/mm3 (4.00-5.60); WHITE BLOOD COUNT 9.7 K/mm3 (4.0-10.0)
[2023-11-27 05:34] LABS: POTASSIUM 3.8 mmol/L (3.5-5.1)
[2023-11-27 05:36] LABS: CALCIUM 9.5 mg/dL (8.5-10.1)
[2023-11-27 05:37] LABS: ALBUMIN 4.5 g/dl (3.4-5.0)
[2023-11-27 05:40] LABS: CREATININE 1.5 mg/dL (0.55-1.3)
[2023-11-27 05:41] LABS: TOT PROT 7.8 g/dl (6.4-8.2)
[2023-11-27] MEDS: SODIUM CHLORIDE 0.9% 500 ML INFUS.BAG IV ONE (06:10)
[2023-11-27 08:11] VITALS: PULSE 87
== END 2023-11-27 09:08 | disposition home or self-care (01) ==
LOC: JER 04:32
DX: R06.02 Shortness of breath (principal); R00.0 Tachycardia, unspecified; Z20.822 Contact with and (suspected) exposure to COVID-19
CPT/HCPCS: 0241U-QW; 36415; 71045-TC-FY; 80053; 84484; 85025; 85379; 93005; 93010; 99285-25

== ENCOUNTER 2024-05-06 13:26 | Emergency (ER) | payer OTHER ==
[2024-05-06 13:40] VITALS: BMI 26.4
[2024-05-06 14:39] LABS: BASO % 0.3 % (0-2.0); EOS % 0.1 % (0-4.5); HEMATOCRIT 39.5 % (35.4-49); HEMOGLOBIN 13.3 GM/dL (11.7-16.9); LYMPH % 16.4 % (8-40); MCH 31.6 pg (25.7-33.7); MCHC 33.7 g/dl (32.0-35.9); MEAN CELL VOLUME 93.6 fl (80-96); MEAN PLT VOLUME 9.2 fl (7.5-11.1); MONO % 9.5 % (3.8-10.2); NEUT % 73.7 % (42.8-82.8); PLATELET COUNT 229 10^3/uL (134-434); RBC 4.22 M/mm3 (4.00-5.60); RDW 13.2 % (11.9-15.9); WHITE BLOOD COUNT 13.1 K/mm3 (4.0-10.0)
[2024-05-06] MEDS ORDERED: LORazepam 2 MG/ML SDV VIAL ONE (14:40)
[2024-05-06 14:49] LABS: ACTIVATED PTT 30.2 SECONDS (25.2-36.5); INR 1.04 (0.83-1.09); PROTHROMBIN TIME (PATIENT) 11.9 SEC (9.7-13.0)
[2024-05-06 15:01] LABS: POTASSIUM 4.3 mmol/L (3.5-5.1)
[2024-05-06 15:04] LABS: ALBUMIN 4.4 g/dl (3.4-5.0); CALCIUM 10.1 mg/dL (8.5-10.1)
[2024-05-06 15:05] LABS: BLOOD UREA NITROGEN 13.4 mg/dL (7-18)
[2024-05-06 15:09] LABS: BILIRUBIN,TOTAL 1.1 mg/dL (0.2-1); CREATININE 1.4 mg/dL (0.55-1.3)
[2024-05-06 15:16] LABS: COCAINE, UR NEGATIVE (NEGATIVE)
[2024-05-06 15:18] LABS: METHADONE, UR NEGATIVE (NEGATIVE); OPIATES, URI NEGATIVE (NEGATIVE); PHENCYCLIDINE,URINE NEGATIVE (NEGATIVE); URINE BARBITURATES NEGATIVE (NEGATIVE); URINE BENZODIAZEPINES NEGATIVE (NEGATIVE)
[2024-05-06 15:28] VITALS: BP 158/90; PULSE 95; RESP 20; TEMP 98.1
[2024-05-06 15:30] LABS: URINE AMPHETAMINES POSITIVE (NEGATIVE)
[2024-05-06] MEDS: SODIUM CHLORIDE 0.9% 500 ML INFUS.BAG IV ONE (15:56)
[2024-05-06] MEDS ORDERED: ACETAMINOPHEN INJECTION 100 ML ONE (16:39)
[2024-05-06] MEDS ORDERED: LIDOCAINE 4% PATCH TP ONE (16:40)
[2024-05-06] MEDS: KETOROLAC TROMETHAMINE 30 MG/1 ML VIAL IVPUSH ONE (16:47)
[2024-05-06] MEDS: ACETAMINOPHEN 1000 MG/100 ML BAG IVPB ONE (16:47)
[2024-05-06] MEDS: LIDOCAINE 5% TOPICAL PATCH TP ONE (16:47)
[2024-05-06] MEDS ORDERED: KETOROLAC TROMETHAMINE 15 MG/ML VIAL ONE (18:47)
[2024-05-06] MEDS: KETOROLAC TROMETHAMINE 15 MG/ML VIAL IVPUSH ONE (18:54)
[2024-05-06] MEDS ORDERED: LIDOCAINE PATCH REMOVAL MC SCH (22:00)
== END 2024-05-06 20:42 | disposition left against medical advice (07) ==
LOC: JER 13:26
PROC: 3E033NZ Introduction of Analgesics, Hypnotics, Sedatives into Peripheral Vein, Percutaneous Approach (ICD-10-PCS; principal; 2024-05-06)
PROC: 3E0333Z Introduction of Anti-inflammatory into Peripheral Vein, Percutaneous Approach (ICD-10-PCS; 2024-05-06)
PROC: 3E033GC Introduction of Other Therapeutic Substance into Peripheral Vein, Percutaneous Approach (ICD-10-PCS; 2024-05-06)
DX: M62.82 Rhabdomyolysis (principal); F11.20 Opioid dependence, uncomplicated; R06.02 Shortness of breath; F41.9 Anxiety disorder, unspecified
CPT/HCPCS: 36415; 71046-TC-FY; 80053; 80307; 82550; 82553; 84484; 85025; 85610; 85730; 93005; 93010; 96374; 96375; 99285-25; J0131

== ENCOUNTER 2025-01-10 06:59 | Day surgery (SDC) | payer OTHER ==
[2025-01-06 16:27] VITALS: BMI 34.2
[2025-01-10] MEDS ORDERED: MIDAZOLAM HCL 2 MG/2 ML SINGLE DOSE VIAL ONE (08:40)
[2025-01-10] MEDS ORDERED: DEXMEDETOMIDINE HCL 200 MCG/2 ML IVPB ONE (08:40)
[2025-01-10] MEDS ORDERED: TRANEXAMIC ACID 1000 MG/10 ML VIAL ONE ×2 (09:22→10:00)
[2025-01-10] MEDS ORDERED: VANCOMYCIN 1,000 MG VIAL (RESTRICTED TO ID ONLY) ONE ×2 (09:22→10:01)
[2025-01-10] MEDS ORDERED: ROPIVACAINE HCL/PF 100 MG/20 ML VIAL ONE (09:26)
[2025-01-10] MEDS ORDERED: EPINEPHrine 1:1000 P/F - 1 MG/ML AMP ONE (09:43)
[2025-01-10] MEDS ORDERED: PROPOFOL 40 ML ONE (09:49)
[2025-01-10] MEDS ORDERED: ROCURONIUM BROMIDE 50 MG/5 ML SYRINGE ONE ×2 (09:49→09:50)
[2025-01-10] MEDS ORDERED: ONDANSETRON 4 MG/2 ML VIAL ONE (09:59)
[2025-01-10] MEDS ORDERED: SEVOFLURANE 250 ML BTL ONE (10:05)
[2025-01-10] MEDS ORDERED: SUGAMMADEX SODIUM 200 MG/2 ML VIAL ONE (11:00)
[2025-01-10] MEDS ORDERED: KETOROLAC TROMETHAMINE 30 MG/1 ML VIAL ONE (11:41)
[2025-01-10] MEDS ORDERED: MAG HYDROX/AL HYDROX/SIMETH 30 ML UNIT-DOSE CUP PO PRN (12:23)
[2025-01-10] MEDS ORDERED: ONDANSETRON 4 MG/2 ML VIAL IVPUSH PRN (12:28)
[2025-01-10] MEDS ORDERED: PROMETHAZINE HCL 25 MG/1 ML VIAL IVPB PRN (12:28)
[2025-01-10] MEDS ORDERED: ACETAMINOPHEN INJECTION 100 ML ONE (12:34)
[2025-01-10] MEDS: ACETAMINOPHEN 1000 MG/100 ML BAG IVPB ONE (12:50)
[2025-01-10] MEDS: LACTATED RINGERS SOLUTION 1,000 ML IV SCH ×2 (12:58→14:43)
[2025-01-10] MEDS: ACETAMINOPHEN 500 MG TABLET (FP) PO SCH (14:43)
[2025-01-10] MEDS: CEFAZOLIN 2 GM/D5W 2 GM/50 ML ML IVPB SCH (17:50)
[2025-01-10] MEDS ORDERED: CEFAZOLIN SODIUM 2 GM in DEXTROSE 5%-WATER 100 ML IVPB SCH (18:00)
[2025-01-10] MEDS ORDERED: CEFAZOLIN 2 GM in DEXTROSE 5%-WATER - 50 ML IVPB SCH (18:00)
[2025-01-10] MEDS: KETOROLAC TROMETHAMINE 30 MG/1 ML VIAL IVPUSH SCH (18:13)
[2025-01-10] MEDS: SENNOSIDES/DOCUSATE COMBO (SENNA PLUS) TABLET (UD) PO SCH (21:39)
[2025-01-10] MEDS: ZOLPIDEM TARTRATE 5 MG TABLET PO SCH (21:41)
[2025-01-10] MEDS: ONDANSETRON 4 MG/2 ML VIAL IVPUSH PRN (21:42)
[2025-01-10] MEDS: VANCOMYCIN/WATER FOR INJ (PEG) 1,000 MG/200 ML BAG IVPB ONE (22:00)
[2025-01-11] MEDS ORDERED: SODIUM CHLORIDE NASAL SPRAY 44 ML BOTTLE NS PRN (08:32)
[2025-01-11 09:14] VITALS: RESP 18
[2025-01-11] MEDS ORDERED: FLUTICASONE PROP 0.05% 16 GM NASAL SPRAY NS SCH (10:00)
[2025-01-11] MEDS: CEFAZOLIN SODIUM 2 GM in DEXTROSE 5%-WATER 100 ML IVPB SCH (10:22)
[2025-01-11] MEDS: guaiFENesin 600 MG TABLET.ER (FP) PO SCH (10:23)
[2025-01-11] MEDS: ASPIRIN 325 MG TABLET PO SCH (10:23)
[2025-01-11] MEDS: MULTIVITAMINS (DAILY MVI) TABLET (FP) PO SCH (10:23)
[2025-01-11] MEDS: amLODIPine BESYLATE 10 MG TABLET (FP) PO SCH (10:23)
[2025-01-11] MEDS: LISINOPRIL 20 MG TABLET PO SCH (10:23)
[2025-01-11] MEDS: PANTOPRAZOLE 40 MG TABLET PO SCH (10:23)
[2025-01-11 12:04] VITALS: BP 141/96; PULSE 92; TEMP 98.2
== END 2025-01-11 18:10 | disposition home or self-care (01) ==
LOC: FASUSAT 06:59 → FM/S 15:00 → FASUSAT 01-11 18:10
PROVIDERS: ATTEND Orthopaedic Surgery
PROC: 0LS40ZZ Reposition Left Upper Arm Tendon, Open Approach (ICD-10-PCS; 2025-01-10)
PROC: 0RHK04Z Insertion of Internal Fixation Device into Left Shoulder Joint, Open Approach (ICD-10-PCS; 2025-01-10)
PROC: 0RRK0J6 Replacement of Left Shoulder Joint with Synthetic Substitute, Humeral Surface, Open Approach (ICD-10-PCS; principal; 2025-01-10 10:24)
DX: M19.012 Primary osteoarthritis, left shoulder (principal); M75.22 Bicipital tendinitis, left shoulder; M85.612 Other cyst of bone, left shoulder
CPT/HCPCS: 23150; 23430; 23470; C1713; 71045-TC-FY; 73030-TC-LT-FY; 88304-TC; 88305-TC; 88311-TC; 94760; 97116-GP; 97162-GP; C1776